=== PATIENT | female | born 1960 | race Two or more races ===

== ENCOUNTER 2017-04-04 18:38 | Emergency (ER) | payer SELFPAY ==
[~2017-04-04] VITALS: Ht 162.6 cm; Wt 68.9 kg
[~2017-04-04 18:38] MED LIST: ATORVASTATIN CA20 MG ORAL; BACTRIM-DS1 EA ORAL; GABAPENTIN300 MG ORAL; GLYBURIDE-METF1 EAC1 PO; LEVOFLOXACIN750 MG ORAL
[2017-04-04 19:00] VITALS: BP 138/91
[2017-04-04] MEDS ORDERED: METFORMIN HCL850 M1 ORAL (19:00)
[2017-04-04] MEDS ORDERED: GLUCOTROL10 MG ORAL (19:00)
[2017-04-04] MEDS ORDERED: oxyCODONE HCL/Acetaminophen 5/325mg ORAL ONE (19:30)
--- NOTE | 2017-04-04 20:02 | Emergency Room Report ---
History of Present Illness General Chief Complaint: Pain Source: Patient Present Illness HPI 56-year-old female presents to the emergency department complaining of 10 out of 10 in severity sudden onset right flank pain that radiates down into the right lower quadrant as well as groin/ anterior right thigh since last night. Patient reports constant dull ache with intermittent sharp exacerbations. Patient reports history of sciatica in addition to arthritis she denies nausea, vomiting, constipation, diarrhea, dysuria, urinary frequency or urgency, hematuria. She denies palpable swelling or history of hernia. Denies CP, Palpitations, LOC, AMS, dizziness, Changes in Vision, Sensation, paresthesias, or a sudden severe headache. She denies fevers however she reports hot flashes and chills. Allergies: Coded Allergies: No Known Allergies (Unverified , 12/16/15) Patient History Past Medical History: see triage record Past Surgical History: none Pertinent Family History: none Last Menstrual Period: 2016 Now: No Reviewed Nursing Documentation: PMH: Agreed, PSxH: Agreed Nursing Documentation-PMH Hx Cardiac Problems: No Hx Diabetes: Yes Hx Cancer: No Hx Gastrointestinal Problems: No Hx Neurological Problems: Yes - Neuropathy, Migraines Review of Systems All Other Systems: negative except mentioned in HPI Physical Exam Vital Signs Date Time Temp Pulse Resp B/P (MAP) Pulse Ox O2 Delivery O2 Flow Rate FiO2 04/04/17 18:54 98.2 100 19 138/91 100 Room Air Sp02 EP Interpretation: reviewed, normal General Appearance: alert, GCS 15, non-toxic, mild distress Head: normocephalic, atraumatic ENT: hearing grossly normal, normal voice Neck: full range of motion Respiratory: lungs clear, normal breath sounds, speaking full sentences Cardiovascular #1: regular rate, rhythm Gastrointestinal: normal bowel sounds, non tender - very mild Tenderness to deep palpation to the lower quadrants. , soft, non-distended, no guarding Rectal: deferred Genitourinary: normal inspection, CVA tenderness (R) Musculoskeletal: back normal, gait/station normal, normal range of motion, non- tender Neurologic: alert, oriented x3, responsive, motor strength/tone normal, sensory intact, speech normal, grossly normal Psychiatric: judgement/insight normal Skin: normal color, no rash, warm/dry, well hydrated Medical Decision Making PA Attestation Dr. Espinosa is my supervising Physician whom patient management has been discussed with. Diagnostic Impression: Primary Impression: Flank pain, acute Additional Impressions: UTI (urinary tract infection) Qualified Codes: N30.01 - Acute cystitis with hematuria Pyelonephritis ER Course 56-year-old female presents to the emergency department complaining of 10 out of 10 in severity sudden onset right flank pain that radiates down into the right lower quadrant as well as groin/ anterior right thigh since last night. Patient reports constant dull ache with intermittent sharp exacerbations. Patient reports history of sciatica in addition to arthritis she denies nausea, vomiting, constipation, diarrhea, dysuria, urinary frequency or urgency, hematuria. She denies palpable swelling or history of hernia. Denies CP, Palpitations, LOC, AMS, dizziness, Changes in Vision, Sensation, paresthesias, or a sudden severe headache. She denies fevers however she reports hot flashes and chills. Ddx considered but are not limited to Diverticulitis, acute appy, diarrhea,UC, PUD, GE, pancreatitis, gallstone, kidney stone, pyelonephritis, UTI, obstruction. Vital signs: are WNL, pt. is afebrile H&PE are most consistent with Possible renal calculi/or pyelo. acute appendicis is lower suspicious due to relatively benign abdominal exam ORDERS: - UA: Moderate bacteria, elevated inflammatory markers, RBC's and occult blood. possible stone - US- ABD: NO evidence of hydronephrosis or stones. ED INTERVENTIONS: -- Percocet PO -Bactrim DS PO -HR normalized after administration of pain medication. pt. continues to be afebrile, and non-toxic in appearance. -Patient is given ED return precautions, discussed with patient that she'll be treated antibiotics PO for 2 weeks as I suspect pyelonephritis. Discussed with patient to followup with her primary care provider in 3-5 days. DISCHARGE: At this time pt. is stable for d/c to home. Will provide printed patient care instructions, and any necessary prescriptions. Care plan and follow up instructions have been discussed with the patient prior to discharge. Labs Test 04/04/17 19:45 Urine Color Pale yellow Urine Appearance Cloudy Urine pH 5.0 (4.5-8.0) Urine Specific [place] 1.020 (1.005-1.035) Urine Protein 2+ (NEGATIVE) Urine Glucose (UA) 4+ (NEGATIVE) Urine Ketones 3+ (NEGATIVE) Urine Occult Blood 1+ (NEGATIVE) Urine Nitrite Negative (NEGATIVE) Urine Bilirubin Negative (NEGATIVE) Urine Urobilinogen Normal MG/DL (0.0-1.0) Urine Leukocyte Esterase 1+ (NEGATIVE) Urine RBC 2-4 /HPF (0 - 2) Urine WBC 10-15 /HPF (0 - 2) Urine Squamous Epithelial Cells Moderate /LPF (NONE/OCC) Urine Bacteria Many /HPF (NONE) Last Vital Signs Date Time Temp Pulse Resp B/P (MAP) Pulse Ox O2 Delivery O2 Flow Rate FiO2 04/04/17 18:54 98.2 100 19 138/91 100 Room Air Disposition: HOME, SELF-CARE Condition: Stable Scripts Acetaminophen With Codeine (T#3) (TYLENOL #3 TAB*) Y Tab 1 TAB ORAL Q6H Y for For Pain, #9 TAB Prov: Katherin White 04/04/17 Trimethoprim/Sulfamethoxazole 160/800* (BACTRIM DS TABLET*) 1 Each Tablet 1 TAB ORAL TWICE A DAY for 14 Days, #28 TAB Prov: Katherin White 04/04/17 Patient Instructions: Pyelonephritis, Adult, [place], Urinary Tract Infection Additional Instructions: Take medications as directed. Follow up with a Primary Care Provider in 3-5 days, even if your symptoms have resolved. --Please review list of primary care clinics, if you do not already have a primary care provider Return sooner to ED if new symptoms occur, or current symptoms become worse. Do not drink alcohol, drive, or operate heavy machinery while taking Tylenol # 3 as this may cause drowsiness. - Please note that this Emergency Department Report was dictated using [employer] assistant technology software, occasionally this can lead to erroneous entry secondary to interpretation by the dictation equipment. Katherin White Apr 04, 2017 20:02
[2017-04-04 20:30] LABS: APPEARANCE,URINE CLOUDY; COLOR,URINE PALE YELLOW
[2017-04-04 20:31] LABS: BILIRUBIN, URINE NEGATIVE (NEGATIVE); GLUCOSE, URINE (UA) 4+ (NEGATIVE); KETONES,URINE 3+ (NEGATIVE); LEUKOCYTE ESTERASE ,URINE 1+ (NEGATIVE); NITRITE,URINE NEGATIVE (NEGATIVE); PROTEIN,URINE 2+ (NEGATIVE); UROBILINOGEN,URINE NORMAL MG/DL (0.0-1.0)
[2017-04-04] MEDS ORDERED: cefTRIAXone 1 GM in NS 55 ML IVPB ONE (21:15)
[2017-04-04] MEDS ORDERED: Bactrim-DS 1 tab ORAL ONE (21:15)
[2017-04-04] MEDS ORDERED: BACTRIM DS TAB1 EAC1 ORAL (22:06)
[2017-04-04] MEDS ORDERED: ACETAMINOPHEN-1 EAC1 ORAL (22:06)
[2017-04-04 23:04] VITALS: BP 130/75
--- NOTE | 2017-04-07 10:22 | Diagnostic Imaging Report ---
Indication: Pain Technique: Grayscale and duplex images of the kidneys, retroperitoneum, and bladder were obtained. Comparison: 12/19/2015 Findings: Right kidney measures 11.2 cm in length. Left kidney measures 12.5 cm in length. Both kidneys demonstrate normal echogenicity. No hydronephrosis. No focal abnormality. Normal inferior vena cava. Bladder is normal. Post void bladder volume is 5 mm. No significant change Impression: Negative for hydronephrosis 5 mL postvoid bladder volume.
== END 2017-04-04 23:05 | disposition home or self-care (01) ==
LOC: EMR 19:05
DX: R10.9 Unspecified abdominal pain (principal); N39.0 Urinary tract infection, site not specified; N12 Tubulo-interstitial nephritis, not specified as acute or chronic; E11.9 Type 2 diabetes mellitus without complications
CPT/HCPCS: 76775; 81003; 87086; 87181; 96365; 99284

== ENCOUNTER 2017-05-01 14:40 | Inpatient (IN) | payer SELFPAY ==
[~2017-05-01] VITALS: Ht 162.6 cm; Wt 67.6 kg
[~2017-05-01 14:40] MED LIST changes: +ACETAMINOPHEN-1 EAC1 ORAL; +BACTRIM DS TAB1 EAC1 ORAL; +GLUCOTROL10 MG ORAL; +METFORMIN HCL850 M1 ORAL
[2017-05-01] MEDS ORDERED: Morphine Sulfate 4mg/ml Inj IVP ONE ×2 (15:15→19:00)
[2017-05-01 15:47] LABS: MEAN CORPUSCULAR VOLUME 86 FL (80-99); PLATELET COUNT 343 K/UL (150-450); RED BLOOD COUNT 4.86 M/UL (4.20-5.40); RED CELL DISTRIBUTION WIDTH 11.4 % (11.6-14.8); WHITE BLOOD COUNT 14.3 K/UL (4.8-10.8)
[2017-05-01 15:48] LABS: APPEARANCE,URINE CLEAR; BILIRUBIN, URINE NEGATIVE (NEGATIVE); COLOR,URINE PALE YELLOW; GLUCOSE, URINE (UA) 4+ (NEGATIVE); KETONES,URINE 4+ (NEGATIVE); LEUKOCYTE ESTERASE ,URINE NEGATIVE (NEGATIVE); NITRITE,URINE NEGATIVE (NEGATIVE); PH,URINE 5 (4.5-8.0); PROTEIN,URINE 3+ (NEGATIVE); UROBILINOGEN,URINE NORMAL MG/DL (0.0-1.0)
[2017-05-01 15:51] LABS: BASOPHILS % (AUTO) 0.5 % (0.0-2.0); EOSINOPHILS % (AUTO) 0.1 % (0.0-3.0); LYMPHOCYTES % (AUTO) 8.8 % (20.0-45.0); MONOCYTES % (AUTO) 4.7 % (1.0-10.0); NEUTROPHILS % (AUTO) 85.9 % (45.0-75.0)
[2017-05-01 16:01] LABS: ANION GAP 18 mmol/L (5-15); BLOOD UREA NITROGEN 8 mg/dL (7-18); CALCIUM 10.2 MG/DL (8.5-10.1); CARBON DIOXIDE 20 MMOL/L (21-32); CHLORIDE 94 MMOL/L (98-107); CREATININE 0.7 MG/DL (0.55-1.30); POTASSIUM 3.8 MMOL/L (3.5-5.1); SODIUM 132 MMOL/L (136-145)
[2017-05-01 16:15] LABS: ALANINE AMINOTRANSFERASE 39 U/L (12-78); ALKALINE PHOSPHATASE 92 U/L (46-116); ASPARTATE AMINO TRANSFERASE 12 U/L (15-37); CKMB < 0.5 NG/ML (0.0-3.6); CREATINE KINASE 39 U/L (26-308)
--- NOTE | 2017-05-01 16:32 | Diagnostic Imaging Report ---
Indication: Chest pain Comparison: 12/17/2015 A single view chest radiograph was obtained. Findings: Cardiomediastinal appearance is within normal limits for age. Pulmonary vascularity is appropriate. The diaphragmatic contour is smooth and costophrenic angles are sharp. No pleural effusions are identified. The bones are unremarkable. Impression: No acute findings
[2017-05-01 17:03] VITALS: BP 167/80
--- NOTE | 2017-05-01 19:08 | Emergency Room Report ---
History of Present Illness General Chief Complaint: Chest Pain Source: Patient, Medical Record Present Illness HPI Patient was sent to the emergency department today complaining of chest pain epigastric pain and vomiting. Patient has a history of diabetes and takes metformin and has a history hypertension. She has not taken her medications today because of the vomiting. She denies diarrhea. No other complaints are noted. Patient states that she's never had this before. Symptoms noted to be highly severe.No other modifying factors. No other associated signs and symptoms. No other complaints were noted. Allergies: Coded Allergies: No Known Allergies (Unverified , 12/16/15) Patient History Past Medical History: DM, HTN Past Surgical History: none Pertinent Family History: none Social History: Denies: smoking, alcohol use, drug use Reviewed Nursing Documentation: PMH: Agreed, PSxH: Agreed Nursing Documentation-PMH Past Medical History: No History, Except For Hx Cardiac Problems: No Hx Diabetes: Yes Hx Cancer: No Hx Gastrointestinal Problems: No Hx Neurological Problems: Yes - Neuropathy, Migraines Review of Systems All Other Systems: negative except mentioned in HPI Physical Exam Vital Signs Date Time Temp Pulse Resp B/P (MAP) Pulse Ox O2 Delivery O2 Flow Rate FiO2 05/01/17 14:44 98.4 119 26 179/82 100 Room Air 98.4 Sp02 EP Interpretation: reviewed, normal General Appearance: alert, moderate distress Head: normocephalic, atraumatic Eyes: bilateral eye normal inspection ENT: normal ENT inspection, hearing grossly normal, normal voice Neck: normal inspection, full range of motion, supple, no bony tend Respiratory: normal inspection, lungs clear, normal breath sounds, no respiratory distress, no retraction, no wheezing Cardiovascular #1: regular rate, rhythm, no edema Gastrointestinal: normal inspection, normal bowel sounds, soft, no guarding, no hernia, tenderness - epigastric Genitourinary: no CVA tenderness Musculoskeletal: normal inspection, back normal, normal range of motion Neurologic: normal inspection, alert, responsive, speech normal Psychiatric: normal inspection, judgement/insight normal, mood/affect normal Skin: normal inspection, normal color, no rash Medical Decision Making Diagnostic Impression: Primary Impression: ACS (acute coronary syndrome) Additional Impressions: Vomiting Abdominal pain Gastroparesis ER Course Patient presents emergency department today complaining of abdominal pain and chest pain. Differential considerations include acute coronary syndrome, pneumonia, CHF, gastroparesis, aortic dissection, pulmonary embolism just to name a few.Given the severity of the patient's presentation I felt this is a highly complex patient. This patient required extensive workup. He does patient's presentation patient require laboratory workup fluids pain medication and CAT scan. All the laboratory work up and CAT scan were negative. Patient' s symptoms could be secondary to gastroparesis however given severe he patient' s pain for the patient require admission for treatment and monitoring. Case was discussed with Dr. Clemente Barrow. Patient will be made to telemetry for further treatment. Labs Test 05/01/17 15:38 White Blood Count 14.3 K/UL (4.8-10.8) Red Blood Count 4.86 M/UL (4.20-5.40) Hemoglobin 15.0 G/DL (12.0-16.0) Hematocrit 42.0 % (37.0-47.0) Mean Corpuscular Volume 86 FL (80-99) Mean Corpuscular Hemoglobin 30.9 PG (27.0-31.0) Mean Corpuscular Hemoglobin Concent 35.7 G/DL (32.0-36.0) Red Cell Distribution Width 11.4 % (11.6-14.8) Platelet Count 343 K/UL (150-450) Mean Platelet Volume 6.4 FL (6.5-10.1) Neutrophils (%) (Auto) 85.9 % (45.0-75.0) Lymphocytes (%) (Auto) 8.8 % (20.0-45.0) Monocytes (%) (Auto) 4.7 % (1.0-10.0) Eosinophils (%) (Auto) 0.1 % (0.0-3.0) Basophils (%) (Auto) 0.5 % (0.0-2.0) Prothrombin Time 10.1 SEC (9.30-11.50) Prothromb Time International Ratio 1.0 (0.9-1.1) Activated Partial Thromboplast Time 25 SEC (23-33) Urine Color Pale yellow Urine Appearance Clear Urine pH 5 (4.5-8.0) Urine Specific [place] 1.015 (1.005-1.035) Urine Protein 3+ (NEGATIVE) Urine Glucose (UA) 4+ (NEGATIVE) Urine Ketones 4+ (NEGATIVE) Urine Occult Blood 2+ (NEGATIVE) Urine Nitrite Negative (NEGATIVE) Urine Bilirubin Negative (NEGATIVE) Urine Urobilinogen Normal MG/DL (0.0-1.0) Urine Leukocyte Esterase Negative (NEGATIVE) Urine RBC 5-10 /HPF (0 - 2) Urine WBC 2-4 /HPF (0 - 2) Urine Squamous Epithelial Cells Occasional /LPF Urine Bacteria None /HPF (NONE) Sodium Level 132 MMOL/L (136-145) Potassium Level 3.8 MMOL/L (3.5-5.1) Chloride Level 94 MMOL/L (98-107) Carbon Dioxide Level 20 MMOL/L (21-32) Anion Gap 18 mmol/L (5-15) Blood Urea Nitrogen 8 mg/dL (7-18) Creatinine 0.7 MG/DL (0.55-1.30) Estimat Glomerular Filtration Rate > 60 mL/min (>60) Glucose Level 329 MG/DL (74-106) Calcium Level 10.2 MG/DL (8.5-10.1) Total Bilirubin 1.0 MG/DL (0.2-1.0) Aspartate Amino Transf (AST/SGOT) 12 U/L (15-37) Alanine Aminotransferase (ALT/SGPT) 39 U/L (12-78) Alkaline Phosphatase 92 U/L (46-116) Total Creatine Kinase 39 U/L (26-308) Creatine Kinase MB < 0.5 NG/ML (0.0-3.6) Creatine Kinase MB Relative Index 1.2 Troponin I 0.000 ng/mL (0.000-0.056) Pro-B-Type Natriuretic Peptide 250 pg/mL (0-125) Total Protein 8.0 G/DL (6.4-8.2) Albumin 4.0 G/DL (3.4-5.0) Globulin 4.0 g/dL Albumin/Globulin Ratio 1.0 (1.0-2.7) Lipase 121 U/L (73-393) EKG Diagnostic Results Rate: tachycardiac Rhythm: NSR ST Segments: no acute changes Rhythm Strip Diag. Results EP Interpretation: yes Rate: 100 Rhythm: NSR, no PVC's, no ectopy Last Vital Signs Date Time Temp Pulse Resp B/P (MAP) Pulse Ox O2 Delivery O2 Flow Rate FiO2 05/01/17 17:03 99 26 167/80 100 Room Air 05/01/17 17:03 98.4 Status: improved Disposition: ADMITTED INPATIENT Condition: Serious Referrals: NOT CHOSEN IPA/,REFERRING (PCP) JAMILA BROWNE M.D. May 01, 2017 19:08
[2017-05-01 19:35] VITALS: BP 150/79
[2017-05-01 21:10] VITALS: BP 145/78
[2017-05-01 21:50] VITALS: BP 142/77
[2017-05-01 22:20] VITALS: BP 148/74
[2017-05-01] MEDS ORDERED: D5 1/2NS 1,000 ML IV SCH (23:15)
[2017-05-01] MEDS: Morphine Sulfate 2mg/ml Inj IVP PRN (23:46)
[2017-05-02] VITALS (7 sets, daily range): BP systolic 120–185; BP diastolic 65–110
[2017-05-02 01:24] LABS: HEMATOCRIT 40.2 % (37.0-47.0); HEMOGLOBIN 13.7 G/DL (12.0-16.0); MEAN CORPUSCULAR VOLUME 88 FL (80-99); PLATELET COUNT 305 K/UL (150-450); RED BLOOD COUNT 4.57 M/UL (4.20-5.40); WHITE BLOOD COUNT 13.8 K/UL (4.8-10.8)
[2017-05-02 02:06] LABS: ANION GAP 19 mmol/L (5-15); BLOOD UREA NITROGEN 8 mg/dL (7-18); CALCIUM 9.7 MG/DL (8.5-10.1); CARBON DIOXIDE 15 MMOL/L (21-32); CHLORIDE 98 MMOL/L (98-107); CREATININE 0.6 MG/DL (0.55-1.30); POTASSIUM 4.1 MMOL/L (3.5-5.1); SODIUM 132 MMOL/L (136-145)
[2017-05-02] MEDS ORDERED: Loperamide 2mg cap ORAL PRN (02:45)
[2017-05-02] MEDS: NovoLOG Insulin Flexpen SUBQ SCH ×4 (06:30→21:15)
[2017-05-02] MEDS: Morphine Sulfate 2mg/ml Inj IVP PRN ×3 (08:20→21:20)
[2017-05-02] MEDS: Heparin 5000 units/ml inj SUBQ SCH ×2 (08:23→18:01)
--- NOTE | 2017-05-02 09:23 | Diagnostic Imaging Report ---
Indication: Chest and abdominal pain. Shortness of breath Technique: Continuous helical transaxial imaging of the chest, abdomen and pelvis was obtained from the thoracic inlet to the pubic symphysis during rapid intravenous contrast administration. Arterial phase of enhancement obtained. Coronal 2-D reformats were also obtained and maximum intensity projection images in multiple planes. Study obtained in a Siemens sensation [address] Total Dose length Product (DLP): [address] Dose Index Volume (CTDIvol): 0.15, 8.11, 32.45, 14.25 mGy Comparison: None Findings: The thoracic and abdominal aorta appear normal. The major branches of the thoracic aorta including the innominate artery, left common carotid artery and left subclavian arteries appear normal. There is no evidence of aortic dissection or aneurysm. Pulmonary artery is well opacified on this exam as well. There are no filling defects to suggest pulmonary embolus. The heart is unremarkable and there is no pericardial or pleural effusion. No adenopathy, airspace consolidation or interstitial opacities are identified. Major branches of the abdominal aorta appear widely patent including the celiac artery, SMA, bilateral renal arteries, DIANA. There is no aneurysm or dissection of the abdominal aorta. The liver is diffusely hypodense consistent with fatty infiltration. The liver is also prominent in size. There is no free fluid. Some breathing motion present. There is a calcification in the uterus, nonspecific. There is a small right inguinal hernia containing fat. A few discrete diverticula are noted in the sigmoid colon. IMPRESSION: Normal appearance of the thoracic and abdominal aorta. No dissection or aneurysm. No evidence of pulmonary embolus. No acute finding within the chest, abdomen or pelvis identified. Fatty liver. Punctate calcification in the uterus, nonspecific. Small right inguinal hernia containing fat. Mild colonic diverticulosis. No evidence of diverticulitis. The CT scanner at [facility] is accredited by the [employer] and the scans are performed using dose optimization techniques as appropriate to a performed exam including Automatic Exposure control.
[2017-05-02] MEDS: Lisinopril 10mg tab ORAL SCH (12:41)
[2017-05-02] MEDS ORDERED: Levemir Flexpen SUBQ ONE (14:00)
--- NOTE | 2017-05-02 14:23 | General Progress Note ---
Assessment/Plan Problem List: (1) Cannabinoid hyperemesis syndrome ICD Codes: F12.988 - Cannabis use, unspecified with other cannabis-induced disorder SNOMED: 546145671, [id number] (2) Abdominal pain ICD Codes: R10.9 - Unspecified abdominal pain SNOMED: 16455675 Assessment/Plan neg ct ivf control nausea fu Subjective ROS Limited/Unobtainable: Yes Allergies: Coded Allergies: NO KNOWN ALLERGIES (Verified Allergy, Unknown, 05/01/17) Subjective N/V Objective Last 24 Hour Vital Signs Date Time Temp Pulse Resp B/P (MAP) Pulse Ox O2 Delivery O2 Flow Rate FiO2 05/02/17 12:41 185/98 05/02/17 12:00 130 05/02/17 12:00 97.8 120 22 185/98 98 Room Air 97.8 05/02/17 08:01 133 05/02/17 08:00 97.8 120 22 170/110 98 Room Air 97.8 05/02/17 04:00 97.9 120 20 164/85 97 Room Air 97.9 05/02/17 04:00 113 05/02/17 00:00 117 05/02/17 00:00 98.2 113 20 139/65 99 Room Air 98.2 05/01/17 22:20 98.2 110 22 148/74 99 Room Air 98.2 05/01/17 22:10 98.7 99 22 142/77 100 Room Air 98.7 05/01/17 21:50 98.7 99 22 142/77 100 Room Air 98.7 05/01/17 21:10 98.6 88 21 145/78 100 Room Air 98.6 05/01/17 19:35 98.7 77 22 150/79 100 Room Air 98.7 05/01/17 19:31 98.6 05/01/17 19:01 98.4 05/01/17 17:03 99 26 167/80 100 Room Air 05/01/17 17:03 98.4 05/01/17 17:03 99 26 Room Air 05/01/17 15:37 98.4 05/01/17 14:44 98.4 119 26 179/82 100 Room Air 98.4 Intake and Output 05/01/17 05/02/17 19:00 07:00 # Voids 1 6 # Bowel Movements 2 Laboratory Tests 05/01/17 15:35: Urine Opiates Screen Negative, Urine Barbiturates Screen Negative, Phencyclidine (PCP) Screen Negative, Urine Amphetamines Screen Negative, Urine Benzodiazepines Screen Negative, Urine Cocaine Screen Negative, Urine Marijuana (THC) Screen PositiveH 05/01/17 15:38: White Blood Count 14.3H, Red Blood Count 4.86, Hemoglobin 15.0, Hematocrit 42.0 , Mean Corpuscular Volume 86, Mean Corpuscular Hemoglobin 30.9, Mean Corpuscular Hemoglobin Concent 35.7, Red Cell Distribution Width 11.4L, Platelet Count 343, Mean Platelet Volume 6.4L, Neutrophils (%) (Auto) 85.9H, Lymphocytes (%) (Auto) 8.8L, Monocytes (%) (Auto) 4.7, Eosinophils (%) (Auto) 0.1, Basophils (%) (Auto) 0.5, Prothrombin Time 10.1, Prothromb Time International Ratio 1.0, Activated Partial Thromboplast Time 25, Urine Color Pale yellow, Urine Appearance Clear, Urine pH 5, Urine Specific [place] 1.015, Urine Protein 3+H, Urine Glucose (UA) 4+H, Urine Ketones 4+H, Urine Occult Blood 2+H, Urine Nitrite Negative, Urine Bilirubin Negative, Urine Urobilinogen Normal, Urine Leukocyte Esterase Negative, Urine RBC 5-10H, Urine WBC 2-4, Urine Squamous Epithelial Cells Occasional, Urine Bacteria None, Sodium Level 132L, Potassium Level 3.8, Chloride Level 94L, Carbon Dioxide Level 20L, Anion Gap 18H, Blood Urea Nitrogen 8, Creatinine 0.7, Estimat Glomerular Filtration Rate > 60, Glucose Level 329H, Calcium Level 10.2H, Total Bilirubin 1.0, Aspartate Amino Transf (AST/SGOT) 12L, Alanine Aminotransferase (ALT/SGPT) 39, Alkaline Phosphatase 92, Total Creatine Kinase 39, Creatine Kinase MB < 0.5, Creatine Kinase MB Relative Index 1.2, Troponin I 0.000, Pro-B-Type Natriuretic Peptide 250H, Total Protein 8.0, Albumin 4.0, Globulin 4.0, Albumin/Globulin Ratio 1.0, Lipase 121 05/02/17 01:00: White Blood Count 13.8H, Red Blood Count 4.57, Hemoglobin 13.7, Hematocrit 40.2 , Mean Corpuscular Volume 88, Mean Corpuscular Hemoglobin 29.9, Mean Corpuscular Hemoglobin Concent 34.0, Red Cell Distribution Width 12.0, Platelet Count 305, Mean Platelet Volume 6.1L, Neutrophils (%) (Auto) , Lymphocytes (%) ( Auto) , Monocytes (%) (Auto) , Eosinophils (%) (Auto) , Basophils (%) (Auto) , Sodium Level 132L, Potassium Level 4.1, Chloride Level 98, Carbon Dioxide Level 15L, Anion Gap 19H, Blood Urea Nitrogen 8, Creatinine 0.6, Estimat Glomerular Filtration Rate > 60, Glucose Level 312H, Calcium Level 9.7, Troponin I 0.000, Differential Total Cells Counted 100, Neutrophils % (Manual) 89H, Lymphocytes % (Manual) 8L, Monocytes % (Manual) 3, Eosinophils % (Manual) 0, Basophils % ( Manual) 0, Band Neutrophils 0, Platelet Estimate Adequate, Platelet Morphology Normal 05/02/17 08:45: Troponin I 0.000 Procedure: CTA CHEST ABD/PEL WO/W CONT Indication: Chest and abdominal pain. Shortness of breath Technique: Continuous helical transaxial imaging of the chest, abdomen and pelvis was obtained from the thoracic inlet to the pubic symphysis during rapid intravenous contrast administration. Arterial phase of enhancement obtained. Coronal 2-D reformats were also obtained and maximum intensity projection images in multiple planes. Study obtained in a Siemens sensation [address] Total Dose length Product (DLP): [address] Dose Index Volume (CTDIvol): 0.15, 8.11, 32.45, 14.25 mGy Comparison: None Findings: The thoracic and abdominal aorta appear normal. The major branches of the thoracic aorta including the innominate artery, left common carotid artery and left subclavian arteries appear normal. There is no evidence of aortic dissection or aneurysm. Pulmonary artery is well opacified on this exam as well. There are no filling defects to suggest pulmonary embolus. The heart is unremarkable and there is no pericardial or pleural effusion. No adenopathy, airspace consolidation or interstitial opacities are identified. Major branches of the abdominal aorta appear widely patent including the celiac artery, SMA, bilateral renal arteries, DIANA. There is no aneurysm or dissection of the abdominal aorta. The liver is diffusely hypodense consistent with fatty infiltration. The liver is also prominent in size. There is no free fluid. Some breathing motion present. There is a calcification in the uterus, nonspecific. There is a small right inguinal hernia containing fat. A few discrete diverticula are noted in the sigmoid colon. IMPRESSION: Normal appearance of the thoracic and abdominal aorta. No dissection or aneurysm. No evidence of pulmonary embolus. No acute finding within the chest, abdomen or pelvis identified. Fatty liver. Punctate calcification in the uterus, nonspecific. Small right inguinal hernia containing fat. Mild colonic diverticulosis. No evidence of diverticulitis. The CT scanner at [facility] is accredited by the [employer] and the scans are performed using dose optimization techniques as appropriate to a performed exam including Automatic Exposure control. Dictated By: PO LEE M.D. Electronically Signed By: PO LEE M.D. Signed Date/Time 05/02/17 0918 CC: SHANTI HAWKINS; ANA LAURA BROWNE Height (Feet): 5 Height (Inches): 4.00 Weight (Pounds): 149 General Appearance: alert EENT: normal ENT inspection Neck: supple Cardiovascular: normal rate Respiratory/Chest: lungs clear Abdomen: normal bowel sounds, non tender, soft Extremities: non-tender CLARISSA TOM May 02, 2017 14:23
--- NOTE | 2017-05-02 14:44 | General Progress Note ---
Progress Note Progress Note [id number] full consult dictated [place] May 02, 2017 14:44
--- NOTE | 2017-05-02 16:00 | History and Physical Report ---
DATE OF ADMISSION: 05/01/2017 ATTENDING PHYSICIAN: Clemente Barrow D.O. CONSULTANTS: 1. Raoul Carlson M.D. 2. Kavon Disla M.D. 3. Bryce Murphy M.D. 4. Robel Robledo M.D. CHIEF COMPLAINT: Chest pain, abdominal pain, nausea, vomiting, and neuropathy. BRIEF HISTORY: The patient is a 56-year-old female, who lives at home, presents with history of chest pain for one day, dull, left substernal area. No radiation. No loss of consciousness. No dizziness. She has abdominal pain as well with some nausea and vomiting. The patient came to [facility], diagnosed with the above, admitted to telemetry for further care. Currently calm in bed. Slight nausea and vomiting. No complaint. PAST MEDICAL HISTORY: Diabetes and neuropathy. PAST SURGICAL HISTORY: None. MEDICATIONS: Heparin, NovoLog, Zofran, Imodium, dextrose, and morphine. ALLERGIES: Denies. SOCIAL HISTORY: No smoking. No alcohol. Positive marijuana use. REVIEW OF SYSTEMS: Slight chest pain. Slight shortness of breath. Slight nausea and vomiting. No diarrhea. PHYSICAL EXAMINATION: GENERAL: Calm in bed, oriented x3, in no acute distress. VITAL SIGNS: Temperature is 97 degrees, pulse 120, respirations 22, and blood pressure 120/110. CARDIOVASCULAR: No murmur. LUNGS: Distant and clear. ABDOMEN: Bowel sounds positive. Nontender and nondistended. EXTREMITIES: No cyanosis or edema. NEUROLOGIC: The patient moves all extremities, slightly weak. LABORATORY AND DIAGNOSTIC DATA: White count 13.8, otherwise, CBC is normal. Sodium 132 and glucose 312, otherwise, normal. INR is 1.0 and PTT is 25. Urinalysis shows 3+ protein, 4+ glucose, 4+ ketone, and 2+ occult blood. Urine toxicology is positive for marijuana. ASSESSMENT: 1. Acute coronary syndrome. 2. Abdominal pain. 3. Nausea and vomiting. 4. Diabetes. 5. Neuropathy. 6. Leukocytosis. PLAN: 1. Continue premedications. 2. Troponin q.8 h. x3. 3. EKG in the morning. 4. Morphine p.r.n. 5. Blood pressure and blood sugar control. 6. Pain control. 7. Dietary followup. 8. Resume home medications. 9. Dr. Carlson, Dr. Disla, Dr. Murphy, Dr. Robledo, and Dr. Larios to consult. Clemente Barrow D.O. DR: Aamir JOB#: [id number] CC:
--- NOTE | 2017-05-02 17:09 | Cardiology Progress Note ---
Assessment/Plan Assessment/Plan The patient is seen and examined, full consult note will be dictated shortly. Objective Last 24 Hour Vital Signs Date Time Temp Pulse Resp B/P (MAP) Pulse Ox O2 Delivery O2 Flow Rate FiO2 05/02/17 16:00 97.7 136 20 155/92 98 Room Air 97.7 05/02/17 12:41 185/98 05/02/17 12:00 130 05/02/17 12:00 97.8 120 22 185/98 98 Room Air 97.8 05/02/17 08:01 133 05/02/17 08:00 97.8 120 22 170/110 98 Room Air 97.8 05/02/17 04:00 97.9 120 20 164/85 97 Room Air 97.9 05/02/17 04:00 113 05/02/17 00:00 117 05/02/17 00:00 98.2 113 20 139/65 99 Room Air 98.2 05/01/17 22:20 98.2 110 22 148/74 99 Room Air 98.2 05/01/17 22:10 98.7 99 22 142/77 100 Room Air 98.7 05/01/17 21:50 98.7 99 22 142/77 100 Room Air 98.7 05/01/17 21:10 98.6 88 21 145/78 100 Room Air 98.6 05/01/17 19:35 98.7 77 22 150/79 100 Room Air 98.7 05/01/17 19:31 98.6 05/01/17 19:01 98.4 Intake and Output 05/01/17 05/02/17 19:00 07:00 Intake Total 60 ml Balance 60 ml Intake IV Total 60 ml # Voids 1 6 # Bowel Movements 2 Laboratory Tests Test 05/02/17 01:00 05/02/17 08:45 05/02/17 08:50 05/02/17 15:25 White Blood Count 13.8 K/UL (4.8-10.8) H Red Blood Count 4.57 M/UL (4.20-5.40) Hemoglobin 13.7 G/DL (12.0-16.0) Hematocrit 40.2 % (37.0-47.0) Mean Corpuscular Volume 88 FL (80-99) Mean Corpuscular Hemoglobin 29.9 PG (27.0-31.0) Mean Corpuscular Hemoglobin Concent 34.0 G/DL (32.0-36.0) Red Cell Distribution Width 12.0 % (11.6-14.8) Platelet Count 305 K/UL (150-450) Mean Platelet Volume 6.1 FL (6.5-10.1) L Neutrophils (%) (Auto) % (45.0-75.0) Lymphocytes (%) (Auto) % (20.0-45.0) Monocytes (%) (Auto) % (1.0-10.0) Eosinophils (%) (Auto) % (0.0-3.0) Basophils (%) (Auto) % (0.0-2.0) Differential Total Cells Counted 100 Neutrophils % (Manual) 89 % (45-75) H Lymphocytes % (Manual) 8 % (20-45) L Monocytes % (Manual) 3 % (1-10) Eosinophils % (Manual) 0 % (0-3) Basophils % (Manual) 0 % (0-2) Band Neutrophils 0 % (0-8) Platelet Estimate Adequate Platelet Morphology Normal Sodium Level 132 MMOL/L (136-145) L Potassium Level 4.1 MMOL/L (3.5-5.1) Chloride Level 98 MMOL/L (98-107) Carbon Dioxide Level 15 MMOL/L (21-32) L Anion Gap 19 mmol/L (5-15) H Blood Urea Nitrogen 8 mg/dL (7-18) Creatinine 0.6 MG/DL (0.55-1.30) Estimat Glomerular Filtration Rate > 60 mL/min (>60) Glucose Level 312 MG/DL (74-106) H Calcium Level 9.7 MG/DL (8.5-10.1) Troponin I 0.000 ng/mL (0.000-0.056) 0.000 ng/mL (0.000-0.056) Acetone Level Positive-small (NEGATIVE) Arterial Blood pH 7.282 (7.350-7.450) Arterial Blood Partial Pressure CO2 20.6 mmHg (35.0-45.0) *L Arterial Blood Partial Pressure O2 121.0 mmHg (75.0-100.0) H Arterial Blood HCO3 9.5 mmol/L (22.0-26.0) L Arterial Blood Oxygen Saturation 97.9 % (92.0-98.0) Arterial Blood Base Excess -14.9 Floyd Test Positive REGINALD CARDOZA May 02, 2017 17:09
[2017-05-02] MEDS: Pantoprazole Inj IVP SCH (21:14)
--- NOTE | 2017-05-02 23:40 | Consultation ---
Consult Note Consult Note [id number] JACKIE SOLIMAN M.D. May 02, 2017 23:40
[2017-05-03] VITALS: BP 130/79
--- NOTE | 2017-05-03 00:30 | Consultation ---
DATE OF CONSULTATION: 05/02/2017 NEPHROLOGY CONSULTATION REFERRING PHYSICIAN: Clemente Barrow D.O. REASON FOR CONSULTATION: Dehydration, acidosis, and electrolyte imbalance. HISTORY OF PRESENT ILLNESS: The patient is an unfortunate female with past medical history significant for diabetes, was diagnosed about 12 years ago. The patient is being going to [facility] and seeing a doctor for her diabetes as an outpatient and paid spencer for her treatment, but she was told that her diabetes was out of control. She started having intractable nausea, vomiting, and epigastric. She also had diarrhea. On admission, the patient found to have hyponatremia, uncontrolled diabetes, and was admitted in the hospital. I was called for management of renal disease and electrolyte imbalance. PAST MEDICAL HISTORY: Includin. Diabetes. 2. Dyslipidemia. 3. Hypertension. 4. Diabetic neuropathy. PAST SURGICAL HISTORY: Negative. HOME MEDICATIONS: Including only metformin. FAMILY HISTORY: Positive for history of diabetes. Negative for any history of premature heart disease. REVIEW OF SYSTEMS: GENERAL: She complained of generalized weakness. Complained of chills. No fever. PULMONARY: Denies any shortness of breath, cough, or sputum. CARDIOVASCULAR: Denies any chest pain or palpitations. GASTROINTESTINAL: She complained of chest pain, which is mostly epigastric pain, nonradiating, was associated with intractable nausea and vomiting. GENITOURINARY: Denies any dysuria, frequency, or hematuria. MUSCULOSKELETAL: Denies any weakness or numbness. PHYSICAL EXAMINATION: VITAL SIGNS: The patient had temperature of 98 degrees, blood pressure of 139/65, and pulse rate of 113. HEAD AND NECK: No JVP. No LAD. No thyromegaly. Extraocular movements intact. Pupils are reactive to light and accommodation. LUNGS: Clear to auscultation. CARDIAC: Regular rate and rhythm. S1 and S2. No murmur. No rub. ABDOMEN: Soft, nontender, and nondistended. EXTREMITIES: No edema. No clubbing. No cyanosis. LABORATORY AND DIAGNOSTIC DATA: The patient had WBC count of 13.8, hemoglobin of 13.7, hematocrit of 40, and platelet count of 305,000. Chemistry revealed sodium 132, potassium 4.1, 98 chloride, 15 bicarbonate, BUN of 8, creatinine of 0.6, glucose of 312, and calcium of 9.1. UA revealed specific gravity of 1.015, protein 3+, glucose 4+, ketones 4+, and blood 2+. ASSESSMENT: 1. Hyponatremia most likely the sugar corrected for hyperglycemia, the sodium basically is 137. 2. Anion gap acidosis, need to rule out diabetic ketoacidosis. 3. Urinary tract infection. 4. Rule out diabetic nephropathy with 3+ proteinuria. 5. Uncontrolled diabetes. 6. Uncontrolled hypertension. PLAN: Plan for the patient to obtain UA. Check the random urine protein creatinine ratio to calculate the proteinuria. Check the microalbumin level. I will change IV fluids to normal saline at 120 mL per hour. I would start the patient on possible IV antibiotics. I would like to check the ABG and stat ABG and I would check the ketone level. At the end, I would like to thank, Dr. Clemente Barrow, for allowing me to participate in the care of this patient. Xiomara Larios M.D. DR: Tatyana JOB#: [id number] CC:
--- NOTE | 2017-05-03 03:15 | Consultation ---
DATE OF CONSULTATION: 05/03/2017 INFECTIOUS DISEASE CONSULTATION CONSULTING PHYSICIAN: Meir Correa M.D. REFERRING PHYSICIAN: Clemente Barrow D.O. REASON FOR CONSULTATION: Evaluation of the patient for sepsis, leukocytosis, and antibiotic management. HISTORY OF PRESENT ILLNESS: The patient is a 55-year-old female with multiple medical problems as listed below, who was admitted to this medical center with nausea and vomiting. The patient was found to have leukocytosis. The patient has history of pyelonephritis in the past. Infectious Disease consultation has been requested for further evaluation of the patient's antibiotic management. PAST MEDICAL HISTORY: 1. Diabetes. 2. History of urinary tract infection. ALLERGIES: No known drug allergies. MEDICATIONS: Flagyl and Levaquin. SOCIAL HISTORY: The patient does not smoke or abuse drugs. REVIEW OF SYSTEMS: A 10-point was done as mentioned above. PHYSICAL EXAMINATION: VITAL SIGNS: Temperature 97, blood pressure 113/79, pulse 86, and respiratory rate 18. HEENT: No pale conjunctivae. No icterus. NECK: No lymphadenopathy. CHEST: Clear. HEART: S1, S2. ABDOMEN: Soft and nontender. EXTREMITIES: No cyanosis at this time. NEUROLOGIC: Nonfocal. LABORATORY DATA: White blood cells 13, hemoglobin 13, and platelets 305. UA, 5 to 10 red blood cells and 2 to 4 white blood cells. BUN 8, creatinine 0.9. ALT, AST, and alkaline phosphatase unremarkable. ASSESSMENT: The patient is a 56-year-old female with: 1. Nausea, vomiting. 2. Leukocytosis. 3. Rule out bacteremia. 4. Rule out C. difficile colitis. PLAN: 1. We will continue the patient on Levaquin and Flagyl. 2. Stool culture/C. diff. 3. Monitor CBC. 4. Monitor BMP. 5. Monitor blood and urine cultures. 6. Monitor chest x-ray. 7. Based on the patient's clinical course and labs, we will do further recommendations. Thank you, Dr. Clemente Barrow, for allowing me to participate in the care of this patient. I will follow the patient with you during this hospitalization. Meir Correa M.D. DR: COSTA JOB#: [id number] CC:
[2017-05-03 03:50] VITALS: BP 159/92
[2017-05-03] MEDS: Morphine Sulfate 2mg/ml Inj IVP PRN ×3 (03:59→20:58)
--- NOTE | 2017-05-03 05:45 | Consultation ---
DATE OF CONSULTATION: 05/02/2017 CARDIOLOGY CONSULTATION REFERRING PHYSICIAN: Clemente Barrow D.O. REASON FOR CONSULTATION: Management of tachycardia and chest pain. HISTORY OF PRESENT ILLNESS: The patient is a very unfortunate 56-year-old female who presents to the hospital with complaint of the acute pain, nausea and vomiting as well as chest pain. She has history of diabetes mellitus and takes metformin. Apparently, she has not taken her medications today because of vomiting. On arrival to the emergency department, initial blood pressure was extremely high. Initial evaluation revealed leukocytosis with left shift.The blood test was also significant for metabolic acidosis. Her sugar was 312. A 12-lead electrocardiogram done in the emergency department showed sinus rhythm with no ischemic features. Chest x-ray was significant for normal pulmonary vasculature. MEDICATIONS: List of medications at home including Tylenol No. 3 one tablet p.o. q.6 h. p.r.n. pain, atorvastatin 10 mg p.o. nightly, gabapentin 300 mg three times a day, Glucotrol 10 mg p.o. twice daily, glyburide/metformin 5/500 mg one tablet twice daily, levofloxacin 700 mg p.o. daily for seven days, metformin 850 mg three times a day, Bactrim DS one tablet orally twice daily, and trimethoprim and sulfamethoxazole one tablet twice daily. REVIEW OF SYSTEMS: A 12-system review done and essentially negative. PHYSICAL EXAMINATION: VITAL SIGNS: Blood pressure at the time of arrival to the hospital was 179/82, pulse of 90, respirations of 26, temperature 98.4 degrees Fahrenheit and O2 saturation 100% on room air. GENERAL: The patient is a very pleasant 56-year-old in no apparent respiratory distress. HEENT: Atraumatic and normocephalic. Anicteric. Pupils equal, round, and reactive to light and accommodation. Extraocular muscles intact. NECK: JVP less than 5 cm. CVS: Normal S1 and S2. Regular rate and rhythm. Tachycardic. No murmurs, gallops, or rubs. PMI is at fourth intercostal space at the midclavicular line. LUNGS: Clear to auscultation bilaterally. ABDOMEN: Soft, nontender, and nondistended. No hepatosplenomegaly. Positive bowel sounds. EXTREMITIES: No evidence of edema, clubbing, or cyanosis. LABORATORY AND DIAGNOSTIC DATA: Laboratory findings, chemistry shows sodium 132, potassium 3.8, chloride 94, bicarbonate 20, BUN of 8, creatinine 0.7. Troponin-I x4 negative. WBC is 14.3, hemoglobin of 15.0, hematocrit of 42.0. INR was 1.0. Toxicology showed positive for THC. DIAGNOSTIC DATA: Chest x-ray with no acute cardiopulmonary disease. ASSESSMENT AND PLAN: The patient is a very unfortunate 56-year-old female, seen in Cardiology consultation at the request of Dr. Ryan. 1. Sinus tachycardia, this is due to hypovolemia due to hyperglycemia, recommend aggressive hydration. I would like to thank Dr. Pascual for the courtesy of this consultation. Raoul Carlson M.D. DR: Eduardo JOB#: [id number] CC: PARUL
[2017-05-03] MEDS: NovoLOG Insulin Flexpen SUBQ SCH ×6 (06:16→21:10)
--- NOTE | 2017-05-03 07:45 | General Progress Note ---
Assessment/Plan Problem List: (1) Gram-negative bacteremia ICD Codes: R78.81 - Bacteremia SNOMED: 708181416984 (2) Pyelonephritis ICD Codes: N12 - Tubulo-interstitial nephritis, not specified as acute or chronic SNOMED: 70121924 (3) Abdominal pain ICD Codes: R10.9 - Unspecified abdominal pain SNOMED: 40595898 (4) Gastroparesis ICD Codes: K31.84 - Gastroparesis SNOMED: 045558549 (5) Vomiting ICD Codes: R11.10 - Vomiting, unspecified SNOMED: 949238952 (6) ACS (acute coronary syndrome) ICD Codes: I24.9 - Acute ischemic heart disease, unspecified SNOMED: 605662753 (7) Cannabinoid hyperemesis syndrome ICD Codes: F12.988 - Cannabis use, unspecified with other cannabis-induced disorder SNOMED: 087889405, 928091485 (8) Leukocytosis ICD Codes: D72.829 - Elevated white blood cell count, unspecified SNOMED: 442133124, 913173165 Assessment/Plan Levemir 20 units bid Novolog 8 units ac tid - hold for NPO status continue IV hydration continue NISS Subjective Allergies: Coded Allergies: NO KNOWN ALLERGIES (Verified Allergy, Unknown, 05/01/17) All Systems: reviewed and negative except above Subjective patient is known to me admitted with N/V, leukocytosis diabetes is out of control she is NPO on D5 / NS Objective Last 24 Hour Vital Signs Date Time Temp Pulse Resp B/P (MAP) Pulse Ox O2 Delivery O2 Flow Rate FiO2 05/03/17 03:50 97.7 128 16 159/92 95 97.7 05/03/17 03:40 127 05/03/17 00:00 97.7 125 16 130/79 100 97.7 05/02/17 23:34 127 05/02/17 20:00 97.0 129 16 134/83 98 97.0 05/02/17 19:53 97.0 129 16 134/83 98 Room Air 97.0 05/02/17 19:41 132 05/02/17 16:00 131 05/02/17 16:00 97.7 136 20 155/92 98 Room Air 97.7 05/02/17 12:41 185/98 05/02/17 12:00 130 05/02/17 12:00 97.8 120 22 185/98 98 Room Air 97.8 05/02/17 08:01 133 05/02/17 08:00 97.8 120 22 170/110 98 Room Air 97.8 Intake and Output 05/02/17 05/03/17 19:00 07:00 Intake Total 1030 ml 1100 ml Output Total 200 ml Balance 1030 ml 900 ml Intake IV Total 1030 ml 1100 ml Output Emesis 200 ml # Voids 2 2 # Bowel Movements 1 1 Laboratory Tests 05/02/17 08:45: Troponin I 0.000 05/02/17 08:50: Acetone Level Positive-small 05/02/17 15:25: Arterial Blood pH 7.282L, Arterial Blood Partial Pressure CO2 20.6*L, Arterial Blood Partial Pressure O2 121.0H, Arterial Blood HCO3 9.5L, Arterial Blood Oxygen Saturation 97.9, Arterial Blood Base Excess -14.9, Floyd Test Positive 05/02/17 18:10: Troponin I 0.000 Height (Feet): 5 Height (Inches): 4.00 Weight (Pounds): 149 General Appearance: no apparent distress Neck: normal alignment Cardiovascular: normal rate Respiratory/Chest: lungs clear Abdomen: normal bowel sounds Edema: 1+ Arm (L), 1+ Arm (R), 1+ Leg (L), 1+ Leg (R), 1+ Pedal (L), 1+ Pedal ( R), 1+ Generalized Objective Current Medications Medications (Trade) Dose Ordered Sig/Ramana Route PRN Reason Start Time Stop Time Status Last Admin Dose Admin Clonidine HCl (Catapres Tab) 0.1 mg Q6H PRN ORAL SBP>160 05/02/17 12:30 06/01/17 12:29 Dextrose (Dextrose 50%) STAT PRN IV Hypoglycemia 05/01/17 23:30 05/31/17 23:29 Dextrose (Dextrose 50%) STAT PRN IV Hypoglycemia 05/02/17 13:00 06/01/17 12:59 Heparin Sodium (Porcine) (Heparin 5000 units/ml) 5,000 units BID SUBQ 05/02/17 09:00 06/01/17 08:59 05/02/17 18:01 Insulin Aspart (NovoLOG) BEFORE MEALS AND HS SUBQ 05/02/17 16:30 06/01/17 16:29 05/03/17 06:16 Levofloxacin 150 ml @ 100 mls/hr Q24H IVPB 05/02/17 16:00 05/09/17 15:59 05/02/17 16:29 Lisinopril (Zestril) 10 mg DAILY ORAL 05/02/17 12:30 06/01/17 12:29 05/02/17 12:41 Loperamide HCl (Imodium) 2 mg QID PRN ORAL Diarrhea 05/02/17 02:45 06/01/17 02:44 05/02/17 05:25 Metronidazole 100 ml @ 100 mls/hr Q8HR IVPB 05/02/17 22:00 05/09/17 21:59 05/03/17 06:15 Morphine Sulfate (Morphine Sulfate) 2 mg Q4H PRN IVP For Pain 05/01/17 23:15 05/08/17 23:14 05/03/17 03:59 Ondansetron HCl (Zofran) 4 mg Q4HR PRN IVP Nausea & Vomiting 05/02/17 11:30 06/01/17 11:29 05/02/17 21:13 Pantoprazole (Protonix) 40 mg EVERY 12 HOURS IVP 05/02/17 21:00 06/01/17 20:59 05/02/17 21:14 Prochlorperazine (Compazine) 10 mg Q4H PRN IVP Nausea & Vomiting 05/02/17 11:30 06/01/17 11:29 05/03/17 03:13 Sodium Chloride 1,000 ml @ 100 mls/hr Q10H IV 05/02/17 15:45 06/01/17 15:44 05/03/17 01:45 Item Value Date Time Bedside Blood Glucose 279 mg/dl H 05/03/17 0654 Bedside Blood Glucose 292 mg/dl H 05/02/172114 Bedside Blood Glucose 359 mg/dl H 05/02/17 1800 Bedside Blood Glucose 379 mg/dl H 05/02/17 1405 BRODY BRAN 4, 2018 07:45
[2017-05-03 08:00] VITALS: BP 138/88
[2017-05-03] MEDS: Pantoprazole Inj IVP SCH ×2 (08:51→20:57)
[2017-05-03] MEDS: Lisinopril 10mg tab ORAL SCH (08:51)
[2017-05-03] MEDS: Heparin 5000 units/ml inj SUBQ SCH ×2 (08:52→17:38)
--- NOTE | 2017-05-03 09:11 | General Progress Note ---
Assessment/Plan Problem List: (1) Abdominal pain ICD Codes: R10.9 - Unspecified abdominal pain SNOMED: 61447270 (2) Gastroparesis ICD Codes: K31.84 - Gastroparesis SNOMED: 711731205 (3) Cannabinoid hyperemesis syndrome ICD Codes: F12.988 - Cannabis use, unspecified with other cannabis-induced disorder SNOMED: 268534865, 466442641 (4) Leukocytosis ICD Codes: D72.829 - Elevated white blood cell count, unspecified SNOMED: 263159172, 847525357 (5) Pyelonephritis ICD Codes: N12 - Tubulo-interstitial nephritis, not specified as acute or chronic SNOMED: 95145670 (6) Vomiting ICD Codes: R11.10 - Vomiting, unspecified SNOMED: 429469649 (7) Gram-negative bacteremia ICD Codes: R78.81 - Bacteremia SNOMED: 167795280208 (8) ACS (acute coronary syndrome) ICD Codes: I24.9 - Acute ischemic heart disease, unspecified SNOMED: 420966944 Status: unchanged Assessment/Plan ot pt diet o2 pulm tx cbc bmp am dc plan Subjective Constitutional: Reports: weakness Allergies: Coded Allergies: NO KNOWN ALLERGIES (Verified Allergy, Unknown, 05/01/17) All Systems: reviewed and negative except above Subjective o2nc sleepy Objective Last 24 Hour Vital Signs Date Time Temp Pulse Resp B/P (MAP) Pulse Ox O2 Delivery O2 Flow Rate FiO2 05/03/17 08:51 138/88 05/03/17 08:00 97.8 117 20 138/88 95 97.8 05/03/17 03:50 97.7 128 16 159/92 95 97.7 05/03/17 03:40 127 05/03/17 00:00 97.7 125 16 130/79 100 97.7 05/02/17 23:34 127 05/02/17 20:00 97.0 129 16 134/83 98 97.0 05/02/17 19:53 97.0 129 16 134/83 98 Room Air 97.0 05/02/17 19:41 132 05/02/17 16:00 131 05/02/17 16:00 97.7 136 20 155/92 98 Room Air 97.7 05/02/17 12:41 185/98 05/02/17 12:00 130 05/02/17 12:00 97.8 120 22 185/98 98 Room Air 97.8 Intake and Output 05/02/17 05/03/17 19:00 07:00 Intake Total 1030 ml 1100 ml Output Total 200 ml Balance 1030 ml 900 ml Intake IV Total 1030 ml 1100 ml Output Emesis 200 ml # Voids 2 2 # Bowel Movements 1 1 Laboratory Tests 05/02/17 15:25: Arterial Blood pH 7.282L, Arterial Blood Partial Pressure CO2 20.6*L, Arterial Blood Partial Pressure O2 121.0H, Arterial Blood HCO3 9.5L, Arterial Blood Oxygen Saturation 97.9, Arterial Blood Base Excess -14.9, Floyd Test Positive 05/02/17 18:10: Troponin I 0.000 Height (Feet): 5 Height (Inches): 4.00 Weight (Pounds): 149 General Appearance: lethargic EENT: normal ENT inspection Neck: normal alignment Cardiovascular: normal peripheral pulses, normal rate, regular rhythm Respiratory/Chest: chest wall non-tender, lungs clear, normal breath sounds Abdomen: normal bowel sounds, non tender, soft Extremities: normal inspection Edema: no edema noted Arm (L), no edema noted Arm (R), no edema noted Leg (L), no edema noted Leg (R), no edema noted Pedal (L), no edema noted Pedal (R), no edema noted Generalized Neurologic: motor weakness Skin: normal pigmentation, warm/dry SHANTI HAWKINS May 03, 2017 09:11
--- NOTE | 2017-05-03 09:37 | General Progress Note ---
Assessment/Plan Problem List: (1) Cannabinoid hyperemesis syndrome ICD Codes: F12.988 - Cannabis use, unspecified with other cannabis-induced disorder SNOMED: 564879570, 059942940 (2) Abdominal pain ICD Codes: R10.9 - Unspecified abdominal pain SNOMED: 64179022 (3) DM (diabetes mellitus) ICD Codes: E11.9 - Type 2 diabetes mellitus without complications SNOMED: 93855125 (4) Vomiting ICD Codes: R11.10 - Vomiting, unspecified SNOMED: 693998262 Assessment/Plan neg ct ivf control nausea start diet and advance as tolerated Subjective ROS Limited/Unobtainable: Yes Allergies: Coded Allergies: NO KNOWN ALLERGIES (Verified Allergy, Unknown, 05/01/17) Subjective N/V improved wants to eat Objective Last 24 Hour Vital Signs Date Time Temp Pulse Resp B/P (MAP) Pulse Ox O2 Delivery O2 Flow Rate FiO2 05/03/17 08:51 138/88 05/03/17 08:00 97.8 117 20 138/88 95 97.8 05/03/17 03:50 97.7 128 16 159/92 95 97.7 05/03/17 03:40 127 05/03/17 00:00 97.7 125 16 130/79 100 97.7 05/02/17 23:34 127 05/02/17 20:00 97.0 129 16 134/83 98 97.0 05/02/17 19:53 97.0 129 16 134/83 98 Room Air 97.0 05/02/17 19:41 132 05/02/17 16:00 131 05/02/17 16:00 97.7 136 20 155/92 98 Room Air 97.7 05/02/17 12:41 185/98 05/02/17 12:00 130 05/02/17 12:00 97.8 120 22 185/98 98 Room Air 97.8 Intake and Output 05/02/17 05/03/17 19:00 07:00 Intake Total 1030 ml 1100 ml Output Total 200 ml Balance 1030 ml 900 ml Intake IV Total 1030 ml 1100 ml Output Emesis 200 ml # Voids 2 2 # Bowel Movements 1 1 Laboratory Tests 05/02/17 15:25: Arterial Blood pH 7.282L, Arterial Blood Partial Pressure CO2 20.6*L, Arterial Blood Partial Pressure O2 121.0H, Arterial Blood HCO3 9.5L, Arterial Blood Oxygen Saturation 97.9, Arterial Blood Base Excess -14.9, Floyd Test Positive 05/02/17 18:10: Troponin I 0.000 Height (Feet): 5 Height (Inches): 4.00 Weight (Pounds): 149 General Appearance: alert EENT: normal ENT inspection Neck: supple Cardiovascular: normal rate Respiratory/Chest: decreased breath sounds Abdomen: normal bowel sounds, non tender, soft Extremities: non-tender CLARISSA TOM May 03, 2017 09:37
[2017-05-03] MEDS: Levemir Flexpen SUBQ SCH ×2 (10:17→17:37)
[2017-05-03 12:00] VITALS: BP 155/85
[2017-05-03 12:24] LABS: HEMATOCRIT 42.9 % (37.0-47.0); HEMOGLOBIN 15.2 G/DL (12.0-16.0); MEAN CORPUSCULAR VOLUME 87 FL (80-99); PLATELET COUNT 427 K/UL (150-450); RED BLOOD COUNT 4.94 M/UL (4.20-5.40); WHITE BLOOD COUNT 16.4 K/UL (4.8-10.8)
[2017-05-03 12:37] LABS: ALANINE AMINOTRANSFERASE 29 U/L (12-78); ALBUMIN 3.6 G/DL (3.4-5.0); ALBUMIN/GLOBULIN RATIO 0.8 (1.0-2.7); ALKALINE PHOSPHATASE 92 U/L (46-116); ANION GAP 19 mmol/L (5-15); ASPARTATE AMINO TRANSFERASE 11 U/L (15-37); BILIRUBIN,TOTAL 0.4 MG/DL (0.2-1.0); BLOOD UREA NITROGEN 18 mg/dL (7-18); CALCIUM 10.6 MG/DL (8.5-10.1); CARBON DIOXIDE 14 MMOL/L (21-32); CHLORIDE 103 MMOL/L (98-107); CREATININE 0.8 MG/DL (0.55-1.30); POTASSIUM 3.3 MMOL/L (3.5-5.1); SODIUM 136 MMOL/L (136-145)
--- NOTE | 2017-05-03 14:53 | Infectious Diseases Prog Note ---
Assessment/Plan Assessment/Plan ASSESSMENT: The patient is a 56-year-old female with: Nausea, vomiting. Leukocytosis worsen ? etio ( due to N/v and acute stress ) Rule out bacteremia. C. difficile colitis : Neg Cannabinoid hyperemesis syndrome / Gastroparesis. Diabetes. History of urinary tract infection PLAN: will continue the patient on Levaquin and Flagyl d# 2 for now Monitor CBC Monitor BMP. Monitor blood and urine cultures. Monitor chest x-ray. Subjective Constitutional: Denies: no symptoms, fever, chills, fatigue, anorexia, drenching sweats, other Allergies: Coded Allergies: NO KNOWN ALLERGIES (Verified Allergy, Unknown, 05/01/17) Objective Vital Signs Last 24 Hour Vital Signs Date Time Temp Pulse Resp B/P (MAP) Pulse Ox O2 Delivery O2 Flow Rate FiO2 05/03/17 12:07 97.8 05/03/17 11:37 97.8 05/03/17 08:51 138/88 05/03/17 08:00 97.8 117 20 138/88 95 97.8 05/03/17 08:00 116 05/03/17 03:50 97.7 128 16 159/92 95 97.7 05/03/17 03:40 127 05/03/17 00:00 97.7 125 16 130/79 100 97.7 05/02/17 23:34 127 05/02/17 20:00 97.0 129 16 134/83 98 97.0 05/02/17 19:53 97.0 129 16 134/83 98 Room Air 97.0 05/02/17 19:41 132 05/02/17 16:00 131 05/02/17 16:00 97.7 136 20 155/92 98 Room Air 97.7 Height (Feet): 5 Height (Inches): 4.00 Weight (Pounds): 149 HEENT: anicteric Respiratory/Chest: normal breath sounds Cardiovascular: regularly irregular Abdomen: no organomegaly Microbiology Date/Time Source Procedure Growth Status 05/02/17 07:30 Stool Clostridium difficile Toxin Assay - Final Complete 05/02/17 15:47 Urine,Clean Catch Urine Culture - Preliminary Gram Negative Bacillus 1 Resulted Laboratory Tests Test 05/02/17 15:25 05/02/17 18:10 05/03/17 12:00 Arterial Blood pH 7.282 (7.350-7.450) Arterial Blood Partial Pressure CO2 20.6 mmHg (35.0-45.0) *L Arterial Blood Partial Pressure O2 121.0 mmHg (75.0-100.0) H Arterial Blood HCO3 9.5 mmol/L (22.0-26.0) L Arterial Blood Oxygen Saturation 97.9 % (92.0-98.0) Arterial Blood Base Excess -14.9 Floyd Test Positive Troponin I 0.000 ng/mL (0.000-0.056) White Blood Count 16.4 K/UL (4.8-10.8) H Red Blood Count 4.94 M/UL (4.20-5.40) Hemoglobin 15.2 G/DL (12.0-16.0) Hematocrit 42.9 % (37.0-47.0) Mean Corpuscular Volume 87 FL (80-99) Mean Corpuscular Hemoglobin 30.8 PG (27.0-31.0) Mean Corpuscular Hemoglobin Concent 35.3 G/DL (32.0-36.0) Red Cell Distribution Width 12.0 % (11.6-14.8) Platelet Count 427 K/UL (150-450) Mean Platelet Volume 6.3 FL (6.5-10.1) L Neutrophils (%) (Auto) % (45.0-75.0) Lymphocytes (%) (Auto) % (20.0-45.0) Monocytes (%) (Auto) % (1.0-10.0) Eosinophils (%) (Auto) % (0.0-3.0) Basophils (%) (Auto) % (0.0-2.0) Differential Total Cells Counted 100 Neutrophils % (Manual) 89 % (45-75) H Lymphocytes % (Manual) 7 % (20-45) L Monocytes % (Manual) 4 % (1-10) Eosinophils % (Manual) 0 % (0-3) Basophils % (Manual) 0 % (0-2) Band Neutrophils 0 % (0-8) Platelet Estimate Adequate Platelet Morphology Normal Red Blood Cell Morphology Normal Sodium Level 136 MMOL/L (136-145) Potassium Level 3.3 MMOL/L (3.5-5.1) L Chloride Level 103 MMOL/L (98-107) Carbon Dioxide Level 14 MMOL/L (21-32) L Anion Gap 19 mmol/L (5-15) H Blood Urea Nitrogen 18 mg/dL (7-18) Creatinine 0.8 MG/DL (0.55-1.30) Estimat Glomerular Filtration Rate > 60 mL/min (>60) Glucose Level 258 MG/DL (74-106) H Hemoglobin A1c 11.3 % (4.3-6.0) H Calcium Level 10.6 MG/DL (8.5-10.1) H Total Bilirubin 0.4 MG/DL (0.2-1.0) Aspartate Amino Transf (AST/SGOT) 11 U/L (15-37) L Alanine Aminotransferase (ALT/SGPT) 29 U/L (12-78) Alkaline Phosphatase 92 U/L (46-116) Total Protein 8.4 G/DL (6.4-8.2) H Albumin 3.6 G/DL (3.4-5.0) Globulin 4.8 g/dL Albumin/Globulin Ratio 0.8 (1.0-2.7) L Current Medications Medications (Trade) Dose Ordered Sig/Ramana Route PRN Reason Start Time Stop Time Status Last Admin Dose Admin Clonidine HCl (Catapres Tab) 0.1 mg Q6H PRN ORAL SBP>160 05/02/17 12:30 06/01/17 12:29 Dextrose (Dextrose 50%) STAT PRN IV Hypoglycemia 05/02/17 13:00 06/01/17 12:59 Heparin Sodium (Porcine) (Heparin 5000 units/ml) 5,000 units BID SUBQ 05/02/17 09:00 06/01/17 08:59 05/03/17 08:52 Insulin Aspart (NovoLOG) BEFORE MEALS AND HS SUBQ 05/02/17 16:30 06/01/17 16:29 05/03/17 11:38 Insulin Aspart (NovoLOG) 8 units NOVOTIAC SUBQ 05/03/17 11:50 06/02/17 11:49 05/03/17 13:30 Insulin Detemir (Levemir) 20 units BID SUBQ 05/03/17 09:00 06/02/17 08:59 05/03/17 10:17 Levofloxacin 150 ml @ 100 mls/hr Q24H IVPB 05/02/17 16:00 05/09/17 15:59 05/02/17 16:29 Lisinopril (Zestril) 10 mg DAILY ORAL 05/02/17 12:30 06/01/17 12:29 05/03/17 08:51 Loperamide HCl (Imodium) 2 mg QID PRN ORAL Diarrhea 05/02/17 02:45 06/01/17 02:44 05/02/17 05:25 Metronidazole 100 ml @ 100 mls/hr Q8HR IVPB 05/02/17 22:00 05/09/17 21:59 05/03/17 14:28 Morphine Sulfate (Morphine Sulfate) 2 mg Q4H PRN IVP For Pain 05/01/17 23:15 05/08/17 23:14 05/03/17 11:37 Ondansetron HCl (Zofran) 4 mg Q4HR PRN IVP Nausea & Vomiting 05/02/17 11:30 06/01/17 11:29 05/02/17 21:13 Pantoprazole (Protonix) 40 mg EVERY 12 HOURS IVP 05/02/17 21:00 06/01/17 20:59 05/03/17 08:51 Prochlorperazine (Compazine) 10 mg Q4H PRN IVP Nausea & Vomiting 05/02/17 11:30 06/01/17 11:29 05/03/17 03:13 Sodium Chloride 1,000 ml @ 100 mls/hr Q10H IV 05/02/17 15:45 06/01/17 15:44 05/03/17 11:51 JACKIE SOLIMAN M.D. May 03, 2017 14:53
[2017-05-03 16:00] VITALS: BP 163/113
[2017-05-03] MEDS ORDERED: D5 1/2NS 1000ml IV ONE (18:53)
[2017-05-03 20:00] VITALS: BP 156/93
[2017-05-04] VITALS: BP 154/89
[2017-05-04] MEDS: Morphine Sulfate 2mg/ml Inj IVP PRN ×3 (01:12→10:41)
[2017-05-04 04:00] VITALS: BP 151/82
[2017-05-04] MEDS: NovoLOG Insulin Flexpen SUBQ SCH ×7 (06:41→20:39)
--- NOTE | 2017-05-04 07:37 | General Progress Note ---
Assessment/Plan Problem List: (1) Gram-negative bacteremia ICD Codes: R78.81 - Bacteremia SNOMED: 766415117957 (2) Pyelonephritis ICD Codes: N12 - Tubulo-interstitial nephritis, not specified as acute or chronic SNOMED: 29124995 (3) Abdominal pain ICD Codes: R10.9 - Unspecified abdominal pain SNOMED: 28767109 (4) Gastroparesis ICD Codes: K31.84 - Gastroparesis SNOMED: 699547246 (5) Vomiting ICD Codes: R11.10 - Vomiting, unspecified SNOMED: 520471554 (6) ACS (acute coronary syndrome) ICD Codes: I24.9 - Acute ischemic heart disease, unspecified SNOMED: 625128029 (7) Cannabinoid hyperemesis syndrome ICD Codes: F12.988 - Cannabis use, unspecified with other cannabis-induced disorder SNOMED: 691653439, 872567056 (8) Leukocytosis ICD Codes: D72.829 - Elevated white blood cell count, unspecified SNOMED: 509457558, 489234176 Assessment/Plan Levemir 20 units bid Novolog 8 units ac tid - hold for NPO status continue IV hydration continue NISS Subjective Allergies: Coded Allergies: NO KNOWN ALLERGIES (Verified Allergy, Unknown, 05/01/17) All Systems: reviewed and negative except above Subjective glycemic control improved nausea improved Objective Last 24 Hour Vital Signs Date Time Temp Pulse Resp B/P (MAP) Pulse Ox O2 Delivery O2 Flow Rate FiO2 05/04/17 04:00 98.0 89 18 151/82 96 98.0 05/04/17 03:37 99 05/04/17 00:00 96 05/04/17 00:00 96.4 98 18 154/89 97 96.4 05/03/17 20:00 97.5 109 19 156/93 97 97.5 05/03/17 20:00 114 05/03/17 17:35 163/113 05/03/17 16:00 126 05/03/17 16:00 97.9 118 20 163/113 99 97.9 05/03/17 12:07 97.8 05/03/17 12:00 97.8 113 18 155/85 99 97.8 05/03/17 12:00 120 05/03/17 11:37 97.8 05/03/17 08:51 138/88 3/4/18 08:00 97.8 117 20 138/88 95 97.8 05/03/17 08:00 116 Intake and Output 05/03/17 05/04/17 19:00 07:00 Intake Total 850 ml Output Total 600 ml Balance 850 ml -600 ml Intake Oral 600 ml IV Total 250 ml Output Urine Total 600 ml # Voids 2 Laboratory Tests 05/03/17 12:00: White Blood Count 16.4H, Red Blood Count 4.94, Hemoglobin 15.2, Hematocrit 42.9 , Mean Corpuscular Volume 87, Mean Corpuscular Hemoglobin 30.8, Mean Corpuscular Hemoglobin Concent 35.3, Red Cell Distribution Width 12.0, Platelet Count 427, Mean Platelet Volume 6.3L, Neutrophils (%) (Auto) , Lymphocytes (%) ( Auto) , Monocytes (%) (Auto) , Eosinophils (%) (Auto) , Basophils (%) (Auto) , Differential Total Cells Counted 100, Neutrophils % (Manual) 89H, Lymphocytes % (Manual) 7L, Monocytes % (Manual) 4, Eosinophils % (Manual) 0, Basophils % ( Manual) 0, Band Neutrophils 0, Platelet Estimate Adequate, Platelet Morphology Normal, Red Blood Cell Morphology Normal, Sodium Level 136, Potassium Level 3.3L , Chloride Level 103, Carbon Dioxide Level 14L, Anion Gap 19H, Blood Urea Nitrogen 18, Creatinine 0.8, Estimat Glomerular Filtration Rate > 60, Glucose Level 258H, Hemoglobin A1c 11.3H, Calcium Level 10.6H, Total Bilirubin 0.4, Aspartate Amino Transf (AST/SGOT) 11L, Alanine Aminotransferase (ALT/SGPT) 29, Alkaline Phosphatase 92, Total Protein 8.4H, Albumin 3.6, Globulin 4.8, Albumin/ Globulin Ratio 0.8L Height (Feet): 5 Height (Inches): 4.00 Weight (Pounds): 149 General Appearance: no apparent distress Neck: normal alignment Cardiovascular: normal rate Respiratory/Chest: decreased breath sounds Abdomen: normal bowel sounds Objective Current Medications Medications (Trade) Dose Ordered Sig/Ramana Route PRN Reason Start Time Stop Time Status Last Admin Dose Admin Clonidine HCl (Catapres Tab) 0.1 mg Q6H PRN ORAL SBP>160 05/02/17 12:30 06/01/17 12:29 05/03/17 17:35 Dextrose (Dextrose 50%) STAT PRN IV Hypoglycemia 05/02/17 13:00 06/01/17 12:59 Heparin Sodium (Porcine) (Heparin 5000 units/ml) 5,000 units BID SUBQ 05/02/17 09:00 06/01/17 08:59 05/03/17 17:38 Insulin Aspart (NovoLOG) BEFORE MEALS AND HS SUBQ 05/02/17 16:30 06/01/17 16:29 05/04/17 06:41 Insulin Aspart (NovoLOG) 8 units NOVOTIAC SUBQ 05/03/17 11:50 06/02/17 11:49 05/04/17 06:44 Insulin Detemir (Levemir) 20 units BID SUBQ 05/03/17 09:00 06/02/17 08:59 05/03/17 17:37 Levofloxacin 150 ml @ 100 mls/hr Q24H IVPB 05/02/17 16:00 05/09/17 15:59 05/03/17 16:08 Lisinopril (Zestril) 10 mg DAILY ORAL 05/02/17 12:30 06/01/17 12:29 05/03/17 08:51 Loperamide HCl (Imodium) 2 mg QID PRN ORAL Diarrhea 05/02/17 02:45 06/01/17 02:44 05/02/17 05:25 Metronidazole 100 ml @ 100 mls/hr Q8HR IVPB 05/02/17 22:00 05/09/17 21:59 05/04/17 06:20 Morphine Sulfate (Morphine Sulfate) 2 mg Q4H PRN IVP For Pain 05/01/17 23:15 05/08/17 23:14 05/04/17 05:36 Ondansetron HCl (Zofran) 4 mg Q4HR PRN IVP Nausea & Vomiting 05/02/17 11:30 06/01/17 11:29 05/04/17 04:27 Pantoprazole (Protonix) 40 mg EVERY 12 HOURS IVP 05/02/17 21:00 06/01/17 20:59 05/03/17 20:57 Prochlorperazine (Compazine) 10 mg Q4H PRN IVP Nausea & Vomiting 05/02/17 11:30 06/01/17 11:29 05/03/17 03:13 Sodium Chloride 1,000 ml @ 100 mls/hr Q10H IV 05/02/17 15:45 06/01/17 15:44 05/03/17 22:12 Item Value Date Time Bedside Blood Glucose 191 mg/dl H 05/04/17 0644 Bedside Blood Glucose 139 mg/dl H 05/03/17 2110 Bedside Blood Glucose 220 mg/dl H 05/03/17 1737 Bedside Blood Glucose 257 mg/dl H 05/03/17 1330 Bedside Blood Glucose 279 mg/dl H 05/03/17 1017 Bedside Blood Glucose 279 mg/dl H 05/03/17 0654 BRODY BRAN 5, 2018 07:37
[2017-05-04 08:00] VITALS: BP 155/93
[2017-05-04] MEDS: Lisinopril 10mg tab ORAL SCH (08:52)
[2017-05-04] MEDS: Pantoprazole Inj IVP SCH ×2 (08:52→20:36)
[2017-05-04] MEDS: Heparin 5000 units/ml inj SUBQ SCH ×2 (08:53→18:21)
[2017-05-04] MEDS: Levemir Flexpen SUBQ SCH ×2 (08:55→18:22)
--- NOTE | 2017-05-04 09:12 | Nephrology Progress Note ---
Assessment/Plan Assessment 1. Hyponatremia due to elevated BG corrected sodium basically is 137. 2. Anion gap acidosis, need to rule out diabetic ketoacidosis. 3. Urinary tract infection. 4. Rule out diabetic nephropathy with 3+ proteinuria. 5. Uncontrolled diabetes. 6. Uncontrolled hypertension. Plan continue IVF Check stat chem replace electrolyte as need it monitoring in and out put Subjective Constitutional: Reports: malaise, weakness HEENT: Reports: no symptoms Neurologic/Psychiatric: Reports: no symptoms Subjective alert and awake nausea has improved Objective Objective Last 24 Hour Vital Signs Date Time Temp Pulse Resp B/P (MAP) Pulse Ox O2 Delivery O2 Flow Rate FiO2 05/04/17 08:52 155/93 05/04/17 08:00 97.0 110 20 155/93 98 Room Air 97.0 05/04/17 04:00 98.0 89 18 151/82 96 98.0 05/04/17 03:37 99 05/04/17 00:00 96 05/04/17 00:00 96.4 98 18 154/89 97 96.4 05/03/17 20:00 97.5 109 19 156/93 97 97.5 05/03/17 20:00 114 05/03/17 17:35 163/113 05/03/17 16:00 126 05/03/17 16:00 97.9 118 20 163/113 99 97.9 05/03/17 12:07 97.8 05/03/17 12:00 97.8 113 18 155/85 99 97.8 05/03/17 12:00 120 05/03/17 11:37 97.8 Intake and Output 05/03/17 05/04/17 19:00 07:00 Intake Total 850 ml 900 ml Output Total 600 ml Balance 850 ml 300 ml Intake Oral 600 ml IV Total 250 ml 900 ml Output Urine Total 600 ml # Voids 2 Laboratory Tests 05/03/17 12:00: White Blood Count 16.4H, Red Blood Count 4.94, Hemoglobin 15.2, Hematocrit 42.9 , Mean Corpuscular Volume 87, Mean Corpuscular Hemoglobin 30.8, Mean Corpuscular Hemoglobin Concent 35.3, Red Cell Distribution Width 12.0, Platelet Count 427, Mean Platelet Volume 6.3L, Neutrophils (%) (Auto) , Lymphocytes (%) ( Auto) , Monocytes (%) (Auto) , Eosinophils (%) (Auto) , Basophils (%) (Auto) , Differential Total Cells Counted 100, Neutrophils % (Manual) 89H, Lymphocytes % (Manual) 7L, Monocytes % (Manual) 4, Eosinophils % (Manual) 0, Basophils % ( Manual) 0, Band Neutrophils 0, Platelet Estimate Adequate, Platelet Morphology Normal, Red Blood Cell Morphology Normal, Sodium Level 136, Potassium Level 3.3L , Chloride Level 103, Carbon Dioxide Level 14L, Anion Gap 19H, Blood Urea Nitrogen 18, Creatinine 0.8, Estimat Glomerular Filtration Rate > 60, Glucose Level 258H, Hemoglobin A1c 11.3H, Calcium Level 10.6H, Total Bilirubin 0.4, Aspartate Amino Transf (AST/SGOT) 11L, Alanine Aminotransferase (ALT/SGPT) 29, Alkaline Phosphatase 92, Total Protein 8.4H, Albumin 3.6, Globulin 4.8, Albumin/ Globulin Ratio 0.8L Height (Feet): 5 Height (Inches): 4.00 Weight (Pounds): 149 Objective HEAD AND NECK: No JVP. No LAD. No thyromegaly. Extraocular movements intact. Pupils are reactive to light and accommodation. LUNGS: Clear to auscultation. CARDIAC: Regular rate and rhythm. S1 and S2. No murmur. No rub. ABDOMEN: Soft, nontender, and nondistended. EXTREMITIES: No edema. No clubbing. No cyanosis. [place] May 04, 2017 09:12
[2017-05-04 09:19] LABS: BASOPHILS % (AUTO) 0.4 % (0.0-2.0); HEMATOCRIT 39.2 % (37.0-47.0); HEMOGLOBIN 14.1 G/DL (12.0-16.0); LYMPHOCYTES % (AUTO) 12.9 % (20.0-45.0); MEAN CORPUSCULAR VOLUME 85 FL (80-99); MONOCYTES % (AUTO) 5.3 % (1.0-10.0); NEUTROPHILS % (AUTO) 81.4 % (45.0-75.0); PLATELET COUNT 370 K/UL (150-450); RED BLOOD COUNT 4.59 M/UL (4.20-5.40); RED CELL DISTRIBUTION WIDTH 11.3 % (11.6-14.8); WHITE BLOOD COUNT 11.3 K/UL (4.8-10.8)
[2017-05-04 09:31] LABS: ANION GAP 15 mmol/L (5-15); BLOOD UREA NITROGEN 10 mg/dL (7-18); CALCIUM 9.7 MG/DL (8.5-10.1); CARBON DIOXIDE 20 MMOL/L (21-32); CHLORIDE 100 MMOL/L (98-107); CREATININE 0.5 MG/DL (0.55-1.30); SODIUM 131 MMOL/L (136-145)
[2017-05-04 09:38] LABS: POTASSIUM 2.4 MMOL/L (3.5-5.1)
--- NOTE | 2017-05-04 11:14 | GI Progress Note ---
Assessment/Plan Problems: (1) DM (diabetes mellitus) ICD Codes: E11.9 - Type 2 diabetes mellitus without complications SNOMED: 68700104 (2) Vomiting ICD Codes: R11.10 - Vomiting, unspecified SNOMED: 454311085 (3) Gastroparesis ICD Codes: K31.84 - Gastroparesis SNOMED: 945742146 (4) Cannabinoid hyperemesis syndrome ICD Codes: F12.988 - Cannabis use, unspecified with other cannabis-induced disorder SNOMED: 319043716, 505764910 (5) Abdominal pain ICD Codes: R10.9 - Unspecified abdominal pain SNOMED: 43133513 Status: stable Status Narrative Discussed with Dr. Disla. Assessment/Plan utox positive for MJ neg ct ivf zofran prn, reglan for persistent vomiting adv diet as tolerated fu labs Subjective Gastrointestinal/Abdominal: Reports: no symptoms Objective Last 24 Hour Vital Signs Date Time Temp Pulse Resp B/P (MAP) Pulse Ox O2 Delivery O2 Flow Rate FiO2 05/04/17 08:52 155/93 05/04/17 08:00 97.0 110 20 155/93 98 Room Air 97.0 05/04/17 04:00 98.0 89 18 151/82 96 98.0 05/04/17 03:37 99 05/04/17 00:00 96 05/04/17 00:00 96.4 98 18 154/89 97 96.4 05/03/17 20:00 97.5 109 19 156/93 97 97.5 05/03/17 20:00 114 05/03/17 17:35 163/113 05/03/17 16:00 126 05/03/17 16:00 97.9 118 20 163/113 99 97.9 05/03/17 12:07 97.8 05/03/17 12:00 97.8 113 18 155/85 99 97.8 05/03/17 12:00 120 05/03/17 11:37 97.8 Intake and Output 05/03/17 05/04/17 18:59 06:59 Intake Total 850 ml 900 ml Output Total 600 ml Balance 850 ml 300 ml Intake Oral 600 ml IV Total 250 ml 900 ml Output Urine Total 600 ml # Voids 2 Laboratory Tests Test 05/03/17 12:00 05/04/17 08:10 White Blood Count 16.4 K/UL (4.8-10.8) H 11.3 K/UL (4.8-10.8) H Red Blood Count 4.94 M/UL (4.20-5.40) 4.59 M/UL (4.20-5.40) Hemoglobin 15.2 G/DL (12.0-16.0) 14.1 G/DL (12.0-16.0) Hematocrit 42.9 % (37.0-47.0) 39.2 % (37.0-47.0) Mean Corpuscular Volume 87 FL (80-99) 85 FL (80-99) Mean Corpuscular Hemoglobin 30.8 PG (27.0-31.0) 30.7 PG (27.0-31.0) Mean Corpuscular Hemoglobin Concent 35.3 G/DL (32.0-36.0) 36.0 G/DL (32.0-36.0) Red Cell Distribution Width 12.0 % (11.6-14.8) 11.3 % (11.6-14.8) L Platelet Count 427 K/UL (150-450) 370 K/UL (150-450) Mean Platelet Volume 6.3 FL (6.5-10.1) L 5.9 FL (6.5-10.1) L Neutrophils (%) (Auto) % (45.0-75.0) 81.4 % (45.0-75.0) H Lymphocytes (%) (Auto) % (20.0-45.0) 12.9 % (20.0-45.0) L Monocytes (%) (Auto) % (1.0-10.0) 5.3 % (1.0-10.0) Eosinophils (%) (Auto) % (0.0-3.0) 0.0 % (0.0-3.0) Basophils (%) (Auto) % (0.0-2.0) 0.4 % (0.0-2.0) Differential Total Cells Counted 100 Neutrophils % (Manual) 89 % (45-75) H Lymphocytes % (Manual) 7 % (20-45) L Monocytes % (Manual) 4 % (1-10) Eosinophils % (Manual) 0 % (0-3) Basophils % (Manual) 0 % (0-2) Band Neutrophils 0 % (0-8) Platelet Estimate Adequate Platelet Morphology Normal Red Blood Cell Morphology Normal Sodium Level 136 MMOL/L (136-145) 131 MMOL/L (136-145) L Potassium Level 3.3 MMOL/L (3.5-5.1) L 2.4 MMOL/L (3.5-5.1) *L Chloride Level 103 MMOL/L (98-107) 100 MMOL/L (98-107) Carbon Dioxide Level 14 MMOL/L (21-32) L 20 MMOL/L (21-32) L Anion Gap 19 mmol/L (5-15) H 15 mmol/L (5-15) Blood Urea Nitrogen 18 mg/dL (7-18) 10 mg/dL (7-18) Creatinine 0.8 MG/DL (0.55-1.30) 0.5 MG/DL (0.55-1.30) L Estimat Glomerular Filtration Rate > 60 mL/min (>60) > 60 mL/min (>60) Glucose Level 258 MG/DL (74-106) H 194 MG/DL (74-106) H Hemoglobin A1c 11.3 % (4.3-6.0) H Calcium Level 10.6 MG/DL (8.5-10.1) H 9.7 MG/DL (8.5-10.1) Total Bilirubin 0.4 MG/DL (0.2-1.0) Aspartate Amino Transf (AST/SGOT) 11 U/L (15-37) L Alanine Aminotransferase (ALT/SGPT) 29 U/L (12-78) Alkaline Phosphatase 92 U/L (46-116) Total Protein 8.4 G/DL (6.4-8.2) H Albumin 3.6 G/DL (3.4-5.0) Globulin 4.8 g/dL Albumin/Globulin Ratio 0.8 (1.0-2.7) L Height (Feet): 5 Height (Inches): 4.00 Weight (Pounds): 149 General Appearance: WD/WN, no apparent distress, alert, overweight Cardiovascular: normal rate Respiratory/Chest: normal breath sounds, no respiratory distress Abdominal Exam: normal bowel sounds, non tender, soft Extremities: normal range of motion, non-tender Alejandro,Jeanine Bertin N.P. May 04, 2017 11:14
--- NOTE | 2017-05-04 14:07 | General Progress Note ---
Assessment/Plan Problem List: (1) Abdominal pain ICD Codes: R10.9 - Unspecified abdominal pain SNOMED: 78382322 (2) Gastroparesis ICD Codes: K31.84 - Gastroparesis SNOMED: 493682468 (3) Cannabinoid hyperemesis syndrome ICD Codes: F12.988 - Cannabis use, unspecified with other cannabis-induced disorder SNOMED: 692992261, 809097230 (4) Leukocytosis ICD Codes: D72.829 - Elevated white blood cell count, unspecified SNOMED: 488822896, 540531748 (5) Pyelonephritis ICD Codes: N12 - Tubulo-interstitial nephritis, not specified as acute or chronic SNOMED: 74263845 (6) Vomiting ICD Codes: R11.10 - Vomiting, unspecified SNOMED: 351432325 (7) Gram-negative bacteremia ICD Codes: R78.81 - Bacteremia SNOMED: 774823470654 (8) ACS (acute coronary syndrome) ICD Codes: I24.9 - Acute ischemic heart disease, unspecified SNOMED: 250872215 Assessment/Plan ot pt diet o2 pulm tx cbc bmp am dc plan Subjective Constitutional: Reports: weakness Allergies: Coded Allergies: NO KNOWN ALLERGIES (Verified Allergy, Unknown, 05/01/17) All Systems: reviewed and negative except above Subjective o2nc sleepy c/o poor swallow Objective Last 24 Hour Vital Signs Date Time Temp Pulse Resp B/P (MAP) Pulse Ox O2 Delivery O2 Flow Rate FiO2 05/04/17 08:52 155/93 05/04/17 08:00 97.0 110 20 155/93 98 Room Air 97.0 05/04/17 08:00 109 05/04/17 04:00 98.0 89 18 151/82 96 98.0 05/04/17 03:37 99 05/04/17 00:00 96 05/04/17 00:00 96.4 98 18 154/89 97 96.4 05/03/17 20:00 97.5 109 19 156/93 97 97.5 05/03/17 20:00 114 05/03/17 17:35 163/113 05/03/17 16:00 126 05/03/17 16:00 97.9 118 20 163/113 99 97.9 Intake and Output 05/03/17 05/04/17 19:00 07:00 Intake Total 850 ml 900 ml Output Total 600 ml Balance 850 ml 300 ml Intake Oral 600 ml IV Total 250 ml 900 ml Output Urine Total 600 ml # Voids 2 Laboratory Tests 05/04/17 08:10: White Blood Count 11.3H, Red Blood Count 4.59, Hemoglobin 14.1, Hematocrit 39.2 , Mean Corpuscular Volume 85, Mean Corpuscular Hemoglobin 30.7, Mean Corpuscular Hemoglobin Concent 36.0, Red Cell Distribution Width 11.3L, Platelet Count 370, Mean Platelet Volume 5.9L, Neutrophils (%) (Auto) 81.4H, Lymphocytes (%) (Auto) 12.9L, Monocytes (%) (Auto) 5.3, Eosinophils (%) (Auto) 0.0, Basophils (%) (Auto) 0.4, Sodium Level 131L, Potassium Level 2.4*L, Chloride Level 100, Carbon Dioxide Level 20L, Anion Gap 15, Blood Urea Nitrogen 10, Creatinine 0.5L, Estimat Glomerular Filtration Rate > 60, Glucose Level 194H , Calcium Level 9.7 Height (Feet): 5 Height (Inches): 4.00 Weight (Pounds): 149 General Appearance: lethargic EENT: normal ENT inspection Neck: normal alignment Cardiovascular: normal peripheral pulses, normal rate, regular rhythm Respiratory/Chest: chest wall non-tender, lungs clear, normal breath sounds Abdomen: normal bowel sounds, non tender, soft Extremities: normal inspection Edema: no edema noted Arm (L), no edema noted Arm (R), no edema noted Leg (L), no edema noted Leg (R), no edema noted Pedal (L), no edema noted Pedal (R), no edema noted Generalized Neurologic: responsive, motor weakness Skin: normal pigmentation, warm/dry SHANTI HAWKINS May 04, 2017 14:07
[2017-05-04 16:00] VITALS: BP 168/111
[2017-05-04] MEDS ORDERED: Zolpidem 5mg tab ORAL PRN (18:15)
[2017-05-04 20:00] VITALS: BP 153/93
--- NOTE | 2017-05-04 21:38 | Infectious Diseases Prog Note ---
Assessment/Plan Assessment/Plan ASSESSMENT: The patient is a 56-year-old female with: Nausea, vomiting. Leukocytosis improving Rule out bacteremia. C. difficile colitis : Neg Cannabinoid hyperemesis syndrome / Gastroparesis. Diabetes. History of urinary tract infection PLAN: will continue the patient on Levaquin and Flagyl d# 3 for now Monitor CBC Monitor BMP. Monitor blood and urine cultures. Monitor chest x-ray. Subjective Constitutional: Denies: no symptoms, fever, chills, fatigue, anorexia, drenching sweats, other Allergies: Coded Allergies: NO KNOWN ALLERGIES (Verified Allergy, Unknown, 05/01/17) Objective Vital Signs Last 24 Hour Vital Signs Date Time Temp Pulse Resp B/P (MAP) Pulse Ox O2 Delivery O2 Flow Rate FiO2 05/04/17 20:00 98.1 102 20 153/93 100 Room Air 98.1 05/04/17 16:56 168/111 05/04/17 16:00 98.1 88 20 168/111 97 Room Air 98.1 05/04/17 15:09 133 05/04/17 12:03 104 05/04/17 08:52 155/93 05/04/17 08:00 97.0 110 20 155/93 98 Room Air 97.0 05/04/17 08:00 109 05/04/17 04:00 98.0 89 18 151/82 96 98.0 05/04/17 03:37 99 05/04/17 00:00 96 05/04/17 00:00 96.4 98 18 154/89 97 96.4 Height (Feet): 5 Height (Inches): 4.00 Weight (Pounds): 149 HEENT: anicteric Respiratory/Chest: normal breath sounds Cardiovascular: regular rhythm Abdomen: non distended Microbiology Date/Time Source Procedure Growth Status 05/02/17 07:30 Stool Clostridium difficile Toxin Assay - Final Complete 05/02/17 15:47 Urine,Clean Catch Urine Culture - Final Klebsiella Pneumoniae Complete Laboratory Tests Test 05/04/17 08:10 White Blood Count 11.3 K/UL (4.8-10.8) H Red Blood Count 4.59 M/UL (4.20-5.40) Hemoglobin 14.1 G/DL (12.0-16.0) Hematocrit 39.2 % (37.0-47.0) Mean Corpuscular Volume 85 FL (80-99) Mean Corpuscular Hemoglobin 30.7 PG (27.0-31.0) Mean Corpuscular Hemoglobin Concent 36.0 G/DL (32.0-36.0) Red Cell Distribution Width 11.3 % (11.6-14.8) L Platelet Count 370 K/UL (150-450) Mean Platelet Volume 5.9 FL (6.5-10.1) L Neutrophils (%) (Auto) 81.4 % (45.0-75.0) H Lymphocytes (%) (Auto) 12.9 % (20.0-45.0) L Monocytes (%) (Auto) 5.3 % (1.0-10.0) Eosinophils (%) (Auto) 0.0 % (0.0-3.0) Basophils (%) (Auto) 0.4 % (0.0-2.0) Sodium Level 131 MMOL/L (136-145) L Potassium Level 2.4 MMOL/L (3.5-5.1) *L Chloride Level 100 MMOL/L (98-107) Carbon Dioxide Level 20 MMOL/L (21-32) L Anion Gap 15 mmol/L (5-15) Blood Urea Nitrogen 10 mg/dL (7-18) Creatinine 0.5 MG/DL (0.55-1.30) L Estimat Glomerular Filtration Rate > 60 mL/min (>60) Glucose Level 194 MG/DL (74-106) H Calcium Level 9.7 MG/DL (8.5-10.1) Current Medications Medications (Trade) Dose Ordered Sig/Ramana Route PRN Reason Start Time Stop Time Status Last Admin Dose Admin Clonidine HCl (Catapres Tab) 0.1 mg Q6H PRN ORAL SBP>160 05/02/17 12:30 06/01/17 12:29 05/04/17 16:56 Dextrose (Dextrose 50%) STAT PRN IV Hypoglycemia 05/02/17 13:00 06/01/17 12:59 Heparin Sodium (Porcine) (Heparin 5000 units/ml) 5,000 units BID SUBQ 05/02/17 09:00 06/01/17 08:59 05/04/17 18:21 Insulin Aspart (NovoLOG) BEFORE MEALS AND HS SUBQ 05/02/17 16:30 06/01/17 16:29 05/04/17 20:39 Insulin Aspart (NovoLOG) 8 units NOVOTIAC SUBQ 05/03/17 11:50 06/02/17 11:49 05/04/17 17:06 Insulin Detemir (Levemir) 20 units BID SUBQ 05/03/17 09:00 06/02/17 08:59 05/04/17 18:22 Levofloxacin 150 ml @ 100 mls/hr Q24H IVPB 05/02/17 16:00 05/09/17 15:59 05/04/17 16:55 Lisinopril (Zestril) 10 mg DAILY ORAL 05/02/17 12:30 06/01/17 12:29 05/04/17 08:52 Loperamide HCl (Imodium) 2 mg QID PRN ORAL Diarrhea 05/02/17 02:45 06/01/17 02:44 05/02/17 05:25 Metronidazole 100 ml @ 100 mls/hr Q8HR IVPB 05/02/17 22:00 05/09/17 21:59 05/04/17 13:49 Morphine Sulfate (Morphine Sulfate) 2 mg Q4H PRN IVP For Pain 05/01/17 23:15 05/08/17 23:14 05/04/17 10:41 Ondansetron HCl (Zofran) 4 mg Q4HR PRN IVP Nausea & Vomiting 05/02/17 11:30 06/01/17 11:29 05/04/17 17:44 Pantoprazole (Protonix) 40 mg EVERY 12 HOURS IVP 05/02/17 21:00 06/01/17 20:59 05/04/17 20:36 Prochlorperazine (Compazine) 10 mg Q4H PRN IVP Nausea & Vomiting 05/02/17 11:30 06/01/17 11:29 05/03/17 03:13 Sodium Chloride 1,000 ml @ 100 mls/hr Q10H IV 05/02/17 15:45 06/01/17 15:44 05/04/17 08:57 Zolpidem Tartrate (Ambien) 5 mg HSPRN PRN ORAL Insomnia 05/04/17 18:15 05/11/17 18:14 JACKIE SOLIMAN M.D. May 04, 2017 21:38
--- NOTE | 2017-05-04 23:21 | Consultation ---
REGINALD CARDOZA May 04, 2017 23:21
--- NOTE | 2017-05-04 23:54 | Consultation ---
REGINALD CARDZOA May 04, 2017 23:54
[2017-05-05] VITALS (7 sets, daily range): BP systolic 130–168; BP diastolic 70–100
[2017-05-05] MEDS: NovoLOG Insulin Flexpen SUBQ SCH ×7 (06:48→20:30)
[2017-05-05 08:27] LABS: BASOPHILS % (AUTO) 0.6 % (0.0-2.0); EOSINOPHILS % (AUTO) 0.2 % (0.0-3.0); HEMATOCRIT 36.7 % (37.0-47.0); HEMOGLOBIN 13.3 G/DL (12.0-16.0); LYMPHOCYTES % (AUTO) 23.7 % (20.0-45.0); MEAN CORPUSCULAR VOLUME 85 FL (80-99); NEUTROPHILS % (AUTO) 71.5 % (45.0-75.0); PLATELET COUNT 333 K/UL (150-450); RED CELL DISTRIBUTION WIDTH 11.4 % (11.6-14.8); WHITE BLOOD COUNT 7.6 K/UL (4.8-10.8)
[2017-05-05 08:39] LABS: ANION GAP 15 mmol/L (5-15); BLOOD UREA NITROGEN 9 mg/dL (7-18); CALCIUM 9.4 MG/DL (8.5-10.1); CARBON DIOXIDE 20 MMOL/L (21-32); CHLORIDE 100 MMOL/L (98-107); CREATININE 0.5 MG/DL (0.55-1.30); SODIUM 135 MMOL/L (136-145)
[2017-05-05] MEDS: Pantoprazole Inj IVP SCH ×2 (08:47→20:29)
[2017-05-05] MEDS: Lisinopril 10mg tab ORAL SCH (08:47)
[2017-05-05] MEDS: Heparin 5000 units/ml inj SUBQ SCH ×2 (08:48→17:16)
[2017-05-05] MEDS: Levemir Flexpen SUBQ SCH ×2 (08:49→17:16)
[2017-05-05 09:09] LABS: POTASSIUM 2.3 MMOL/L (3.5-5.1)
--- NOTE | 2017-05-05 09:35 | Infectious Diseases Prog Note ---
Assessment/Plan Assessment/Plan ASSESSMENT: The patient is a 56-year-old female with: Nausea, vomiting. Leukocytosis improving Rule out bacteremia. C. difficile colitis : Neg Urine Cx: EColi ( asymptomatic ) Cannabinoid hyperemesis syndrome / Gastroparesis. Diabetes. History of urinary tract infection PLAN: will continue the patient on Levaquin and Flagyl d# 4 / 5 Monitor CBC Monitor BMP. Monitor blood Cx Monitor chest x-ray. Subjective Allergies: Coded Allergies: NO KNOWN ALLERGIES (Verified Allergy, Unknown, 05/01/17) Subjective comfortable , no N.V Objective Vital Signs Last 24 Hour Vital Signs Date Time Temp Pulse Resp B/P (MAP) Pulse Ox O2 Delivery O2 Flow Rate FiO2 05/05/17 08:47 141/98 05/05/17 08:00 98.1 118 20 141/98 98 Room Air 98.1 05/05/17 04:00 98.1 96 20 160/95 97 Room Air 98.1 05/05/17 04:00 95 05/05/17 00:00 90 05/05/17 00:00 97.9 100 20 139/94 98 Room Air 97.9 05/04/17 20:00 106 05/04/17 20:00 98.1 102 20 153/93 100 Room Air 98.1 05/04/17 16:56 168/111 05/04/17 16:00 98.1 88 20 168/111 97 Room Air 98.1 05/04/17 15:09 133 05/04/17 12:03 104 Height (Feet): 5 Height (Inches): 4.00 Weight (Pounds): 149 HEENT: anicteric Respiratory/Chest: no accessory muscle use Cardiovascular: regular rhythm Abdomen: no organomegaly Microbiology Date/Time Source Procedure Growth Status 05/02/17 15:47 Urine,Clean Catch Urine Culture - Final Klebsiella Pneumoniae Complete Laboratory Tests Test 05/05/17 07:00 White Blood Count 7.6 K/UL (4.8-10.8) Red Blood Count 4.30 M/UL (4.20-5.40) Hemoglobin 13.3 G/DL (12.0-16.0) Hematocrit 36.7 % (37.0-47.0) L Mean Corpuscular Volume 85 FL (80-99) Mean Corpuscular Hemoglobin 30.9 PG (27.0-31.0) Mean Corpuscular Hemoglobin Concent 36.1 G/DL (32.0-36.0) H Red Cell Distribution Width 11.4 % (11.6-14.8) L Platelet Count 333 K/UL (150-450) Mean Platelet Volume 6.1 FL (6.5-10.1) L Neutrophils (%) (Auto) 71.5 % (45.0-75.0) Lymphocytes (%) (Auto) 23.7 % (20.0-45.0) Monocytes (%) (Auto) 4.0 % (1.0-10.0) Eosinophils (%) (Auto) 0.2 % (0.0-3.0) Basophils (%) (Auto) 0.6 % (0.0-2.0) Sodium Level 135 MMOL/L (136-145) L Potassium Level 2.3 MMOL/L (3.5-5.1) *L Chloride Level 100 MMOL/L (98-107) Carbon Dioxide Level 20 MMOL/L (21-32) L Anion Gap 15 mmol/L (5-15) Blood Urea Nitrogen 9 mg/dL (7-18) Creatinine 0.5 MG/DL (0.55-1.30) L Estimat Glomerular Filtration Rate > 60 mL/min (>60) Glucose Level 233 MG/DL (74-106) H Calcium Level 9.4 MG/DL (8.5-10.1) Current Medications Medications (Trade) Dose Ordered Sig/Ramana Route PRN Reason Start Time Stop Time Status Last Admin Dose Admin Clonidine HCl (Catapres Tab) 0.1 mg Q6H PRN ORAL SBP>160 05/02/17 12:30 06/01/17 12:29 05/04/17 16:56 Dextrose (Dextrose 50%) STAT PRN IV Hypoglycemia 05/02/17 13:00 06/01/17 12:59 Heparin Sodium (Porcine) (Heparin 5000 units/ml) 5,000 units BID SUBQ 05/02/17 09:00 06/01/17 08:59 05/05/17 08:48 Insulin Aspart (NovoLOG) BEFORE MEALS AND HS SUBQ 05/02/17 16:30 06/01/17 16:29 05/05/17 06:48 Insulin Aspart (NovoLOG) 8 units NOVOTIAC SUBQ 05/03/17 11:50 06/02/17 11:49 05/05/17 06:48 Insulin Detemir (Levemir) 20 units BID SUBQ 05/03/17 09:00 06/02/17 08:59 05/05/17 08:49 Levofloxacin 150 ml @ 100 mls/hr Q24H IVPB 05/02/17 16:00 05/09/17 15:59 05/04/17 16:55 Lisinopril (Zestril) 10 mg DAILY ORAL 05/02/17 12:30 06/01/17 12:29 05/05/17 08:47 Loperamide HCl (Imodium) 2 mg QID PRN ORAL Diarrhea 05/02/17 02:45 06/01/17 02:44 05/02/17 05:25 Metronidazole 100 ml @ 100 mls/hr Q8HR IVPB 05/02/17 22:00 05/09/17 21:59 05/05/17 06:44 Morphine Sulfate (Morphine Sulfate) 2 mg Q4H PRN IVP For Pain 05/01/17 23:15 05/08/17 23:14 05/04/17 10:41 Ondansetron HCl (Zofran) 4 mg Q4HR PRN IVP Nausea & Vomiting 05/02/17 11:30 06/01/17 11:29 05/05/17 03:58 Pantoprazole (Protonix) 40 mg EVERY 12 HOURS IVP 05/02/17 21:00 06/01/17 20:59 05/05/17 08:47 Prochlorperazine (Compazine) 10 mg Q4H PRN IVP Nausea & Vomiting 05/02/17 11:30 06/01/17 11:29 05/03/17 03:13 Sodium Chloride 1,000 ml @ 100 mls/hr Q10H IV 05/02/17 15:45 06/01/17 15:44 05/05/17 02:54 Zolpidem Tartrate (Ambien) 5 mg HSPRN PRN ORAL Insomnia 05/04/17 18:15 05/11/17 18:14 05/04/17 22:59 JACKIE SOLIMAN M.D. May 05, 2017 09:35
[2017-05-05] MEDS: NS w/KCl 40mEq 1,000 ML IV SCH (14:09)
--- NOTE | 2017-05-05 14:45 | General Progress Note ---
Assessment/Plan Problem List: (1) Abdominal pain ICD Codes: R10.9 - Unspecified abdominal pain SNOMED: 02162154 (2) Gastroparesis ICD Codes: K31.84 - Gastroparesis SNOMED: 924563249 (3) Cannabinoid hyperemesis syndrome ICD Codes: F12.988 - Cannabis use, unspecified with other cannabis-induced disorder SNOMED: 331556296, 029103964 (4) Leukocytosis ICD Codes: D72.829 - Elevated white blood cell count, unspecified SNOMED: 527901593, 904820552 (5) Pyelonephritis ICD Codes: N12 - Tubulo-interstitial nephritis, not specified as acute or chronic SNOMED: 79346101 (6) Vomiting ICD Codes: R11.10 - Vomiting, unspecified SNOMED: 515115037 (7) Gram-negative bacteremia ICD Codes: R78.81 - Bacteremia SNOMED: 408195883051 (8) ACS (acute coronary syndrome) ICD Codes: I24.9 - Acute ischemic heart disease, unspecified SNOMED: 764058500 Status: unchanged Assessment/Plan ot pt diet o2 pulm tx cbc bmp am dc plan Subjective Constitutional: Reports: weakness Allergies: Coded Allergies: NO KNOWN ALLERGIES (Verified Allergy, Unknown, 05/01/17) All Systems: reviewed and negative except above Subjective o2nc sleepy c/o poor swallow Objective Last 24 Hour Vital Signs Date Time Temp Pulse Resp B/P (MAP) Pulse Ox O2 Delivery O2 Flow Rate FiO2 05/05/17 08:47 141/98 05/05/17 08:00 116 05/05/17 08:00 98.1 118 20 141/98 98 Room Air 98.1 05/05/17 04:00 98.1 96 20 160/95 97 Room Air 98.1 05/05/17 04:00 95 05/05/17 00:00 90 05/05/17 00:00 97.9 100 20 139/94 98 Room Air 97.9 05/04/17 20:00 106 05/04/17 20:00 98.1 102 20 153/93 100 Room Air 98.1 05/04/17 16:56 168/111 05/04/17 16:00 98.1 88 20 168/111 97 Room Air 98.1 05/04/17 15:09 133 Intake and Output 05/04/17 05/05/17 19:00 07:00 Intake Total 1900 ml 437 ml Balance 1900 ml 437 ml Intake Oral 600 ml IV Total 1300 ml 437 ml # Voids 3 6 Laboratory Tests 05/05/17 07:00: White Blood Count 7.6, Red Blood Count 4.30, Hemoglobin 13.3, Hematocrit 36.7L, Mean Corpuscular Volume 85, Mean Corpuscular Hemoglobin 30.9, Mean Corpuscular Hemoglobin Concent 36.1H, Red Cell Distribution Width 11.4L, Platelet Count 333 , Mean Platelet Volume 6.1L, Neutrophils (%) (Auto) 71.5, Lymphocytes (%) (Auto ) 23.7, Monocytes (%) (Auto) 4.0, Eosinophils (%) (Auto) 0.2, Basophils (%) ( Auto) 0.6, Sodium Level 135L, Potassium Level 2.3*L, Chloride Level 100, Carbon Dioxide Level 20L, Anion Gap 15, Blood Urea Nitrogen 9, Creatinine 0.5L, Estimat Glomerular Filtration Rate > 60, Glucose Level 233H, Calcium Level 9.4, Magnesium Level 1.9 Height (Feet): 5 Height (Inches): 4.00 Weight (Pounds): 149 General Appearance: lethargic EENT: normal ENT inspection Neck: normal alignment Cardiovascular: normal peripheral pulses, normal rate, regular rhythm Respiratory/Chest: chest wall non-tender, lungs clear, normal breath sounds Abdomen: normal bowel sounds, non tender, soft Extremities: normal inspection Edema: no edema noted Arm (L), no edema noted Arm (R), no edema noted Leg (L), no edema noted Leg (R), no edema noted Pedal (L), no edema noted Pedal (R), no edema noted Generalized Neurologic: responsive, motor weakness Skin: normal pigmentation, warm/dry SHANTI HAWKINS May 05, 2017 14:45
--- NOTE | 2017-05-05 15:37 | GI Progress Note ---
Assessment/Plan Problems: (1) DM (diabetes mellitus) ICD Codes: E11.9 - Type 2 diabetes mellitus without complications SNOMED: 66901000 (2) Vomiting ICD Codes: R11.10 - Vomiting, unspecified SNOMED: 625096124 (3) Gastroparesis ICD Codes: K31.84 - Gastroparesis SNOMED: 165649016 (4) Cannabinoid hyperemesis syndrome ICD Codes: F12.988 - Cannabis use, unspecified with other cannabis-induced disorder SNOMED: 932825129, 324881714 (5) Abdominal pain ICD Codes: R10.9 - Unspecified abdominal pain SNOMED: 60521966 Status: stable, progressing Status Narrative Discussed with Dr. Disla. Assessment/Plan utox positive for MJ neg ct ivf zofran prn, reglan for persistent vomiting adv diet as tolerated fu labs Subjective Gastrointestinal/Abdominal: Reports: nausea - improving Objective Last 24 Hour Vital Signs Date Time Temp Pulse Resp B/P (MAP) Pulse Ox O2 Delivery O2 Flow Rate FiO2 05/05/17 08:47 141/98 05/05/17 08:00 116 05/05/17 08:00 98.1 118 20 141/98 98 Room Air 98.1 05/05/17 04:00 98.1 96 20 160/95 97 Room Air 98.1 05/05/17 04:00 95 05/05/17 00:00 90 05/05/17 00:00 97.9 100 20 139/94 98 Room Air 97.9 05/04/17 20:00 106 05/04/17 20:00 98.1 102 20 153/93 100 Room Air 98.1 05/04/17 16:56 168/111 05/04/17 16:00 98.1 88 20 168/111 97 Room Air 98.1 Intake and Output 05/04/17 05/05/17 19:00 07:00 Intake Total 1900 ml 437 ml Balance 1900 ml 437 ml Intake Oral 600 ml IV Total 1300 ml 437 ml # Voids 3 6 Laboratory Tests Test 05/05/17 07:00 White Blood Count 7.6 K/UL (4.8-10.8) Red Blood Count 4.30 M/UL (4.20-5.40) Hemoglobin 13.3 G/DL (12.0-16.0) Hematocrit 36.7 % (37.0-47.0) L Mean Corpuscular Volume 85 FL (80-99) Mean Corpuscular Hemoglobin 30.9 PG (27.0-31.0) Mean Corpuscular Hemoglobin Concent 36.1 G/DL (32.0-36.0) H Red Cell Distribution Width 11.4 % (11.6-14.8) L Platelet Count 333 K/UL (150-450) Mean Platelet Volume 6.1 FL (6.5-10.1) L Neutrophils (%) (Auto) 71.5 % (45.0-75.0) Lymphocytes (%) (Auto) 23.7 % (20.0-45.0) Monocytes (%) (Auto) 4.0 % (1.0-10.0) Eosinophils (%) (Auto) 0.2 % (0.0-3.0) Basophils (%) (Auto) 0.6 % (0.0-2.0) Sodium Level 135 MMOL/L (136-145) L Potassium Level 2.3 MMOL/L (3.5-5.1) *L Chloride Level 100 MMOL/L (98-107) Carbon Dioxide Level 20 MMOL/L (21-32) L Anion Gap 15 mmol/L (5-15) Blood Urea Nitrogen 9 mg/dL (7-18) Creatinine 0.5 MG/DL (0.55-1.30) L Estimat Glomerular Filtration Rate > 60 mL/min (>60) Glucose Level 233 MG/DL (74-106) H Calcium Level 9.4 MG/DL (8.5-10.1) Magnesium Level 1.9 MG/DL (1.8-2.4) Height (Feet): 5 Height (Inches): 4.00 Weight (Pounds): 149 General Appearance: no apparent distress, alert, overweight Cardiovascular: normal rate Respiratory/Chest: normal breath sounds Abdominal Exam: normal bowel sounds, non tender, soft Extremities: normal range of motion Jeanine Alejandro N.P. May 05, 2017 15:37
[2017-05-05] MEDS ORDERED: Morphine Sulfate 2mg/ml Inj IVP PRN (17:00)
--- NOTE | 2017-05-05 19:14 | Cardiology Progress Note ---
Assessment/Plan Assessment/Plan 1. Sinus tachycardia, this is due to hypovolemia due to hyperglycemia, continue hydration. 2. Atypical/non-cardiac chest pain. 3. DM 4. HTN Subjective Subjective Sinus rhythm at 97. Objective Last 24 Hour Vital Signs Date Time Temp Pulse Resp B/P (MAP) Pulse Ox O2 Delivery O2 Flow Rate FiO2 05/05/17 16:00 98.1 97 18 165/100 99 Room Air 98.1 05/05/17 12:00 98.2 105 20 165/98 97 Room Air 98.2 05/05/17 12:00 99 05/05/17 08:47 141/98 05/05/17 08:00 116 05/05/17 08:00 98.1 118 20 141/98 98 Room Air 98.1 05/05/17 04:00 98.1 96 20 160/95 97 Room Air 98.1 05/05/17 04:00 95 05/05/17 00:00 90 05/05/17 00:00 97.9 100 20 139/94 98 Room Air 97.9 05/04/17 20:00 106 05/04/17 20:00 98.1 102 20 153/93 100 Room Air 98.1 Intake and Output 05/04/17 05/05/17 19:00 07:00 Intake Total 1900 ml 437 ml Balance 1900 ml 437 ml Intake Oral 600 ml IV Total 1300 ml 437 ml # Voids 3 6 Laboratory Tests Test 05/05/17 07:00 White Blood Count 7.6 K/UL (4.8-10.8) Red Blood Count 4.30 M/UL (4.20-5.40) Hemoglobin 13.3 G/DL (12.0-16.0) Hematocrit 36.7 % (37.0-47.0) L Mean Corpuscular Volume 85 FL (80-99) Mean Corpuscular Hemoglobin 30.9 PG (27.0-31.0) Mean Corpuscular Hemoglobin Concent 36.1 G/DL (32.0-36.0) H Red Cell Distribution Width 11.4 % (11.6-14.8) L Platelet Count 333 K/UL (150-450) Mean Platelet Volume 6.1 FL (6.5-10.1) L Neutrophils (%) (Auto) 71.5 % (45.0-75.0) Lymphocytes (%) (Auto) 23.7 % (20.0-45.0) Monocytes (%) (Auto) 4.0 % (1.0-10.0) Eosinophils (%) (Auto) 0.2 % (0.0-3.0) Basophils (%) (Auto) 0.6 % (0.0-2.0) Sodium Level 135 MMOL/L (136-145) L Potassium Level 2.3 MMOL/L (3.5-5.1) *L Chloride Level 100 MMOL/L (98-107) Carbon Dioxide Level 20 MMOL/L (21-32) L Anion Gap 15 mmol/L (5-15) Blood Urea Nitrogen 9 mg/dL (7-18) Creatinine 0.5 MG/DL (0.55-1.30) L Estimat Glomerular Filtration Rate > 60 mL/min (>60) Glucose Level 233 MG/DL (74-106) H Calcium Level 9.4 MG/DL (8.5-10.1) Magnesium Level 1.9 MG/DL (1.8-2.4) Objective HEENT: Atraumatic and normocephalic. Anicteric. Pupils equal, round, and reactive to light and accommodation. Extraocular muscles intact. NECK: JVP less than 5 cm. CVS: Normal S1 and S2. Regular rate and rhythm. Tachycardic. No murmurs, gallops, or rubs. PMI is at fourth intercostal space at the midclavicular line. LUNGS: Clear to auscultation bilaterally. ABDOMEN: Soft, nontender, and nondistended. No hepatosplenomegaly. Positive bowel sounds. EXTREMITIES: No evidence of edema, clubbing, or cyanosis. REGINALD CARDOZA May 05, 2017 19:14
[2017-05-06] VITALS (8 sets, daily range): BP systolic 127–164; BP diastolic 83–104
[2017-05-06] MEDS ORDERED: Zolpidem 5mg tab ORAL PRN (00:46)
[2017-05-06] MEDS: NS w/KCl 40mEq 1,000 ML IV SCH ×4 (00:53→14:37)
[2017-05-06] MEDS ORDERED: Morphine Sulfate 2mg/ml Inj IVP PRN (01:00)
[2017-05-06] MEDS: NovoLOG Insulin Flexpen SUBQ SCH ×6 (06:02→18:02)
[2017-05-06 07:31] LABS: BASOPHILS % (AUTO) 0.8 % (0.0-2.0); EOSINOPHILS % (AUTO) 0.7 % (0.0-3.0); HEMATOCRIT 31.9 % (37.0-47.0); HEMOGLOBIN 11.5 G/DL (12.0-16.0); LYMPHOCYTES % (AUTO) 32.1 % (20.0-45.0); MEAN CORPUSCULAR VOLUME 85 FL (80-99); MONOCYTES % (AUTO) 7.6 % (1.0-10.0); NEUTROPHILS % (AUTO) 58.7 % (45.0-75.0); PLATELET COUNT 307 K/UL (150-450); RED BLOOD COUNT 3.74 M/UL (4.20-5.40); RED CELL DISTRIBUTION WIDTH 11.3 % (11.6-14.8)
--- NOTE | 2017-05-06 08:02 | General Progress Note ---
Assessment/Plan Problem List: (1) Abdominal pain ICD Codes: R10.9 - Unspecified abdominal pain SNOMED: 79241967 (2) Gastroparesis ICD Codes: K31.84 - Gastroparesis SNOMED: 429069847 (3) Cannabinoid hyperemesis syndrome ICD Codes: F12.988 - Cannabis use, unspecified with other cannabis-induced disorder SNOMED: 758317746, 623699694 (4) Leukocytosis ICD Codes: D72.829 - Elevated white blood cell count, unspecified SNOMED: 871824471, 004433940 (5) Pyelonephritis ICD Codes: N12 - Tubulo-interstitial nephritis, not specified as acute or chronic SNOMED: 89334008 (6) Vomiting ICD Codes: R11.10 - Vomiting, unspecified SNOMED: 848511338 (7) Gram-negative bacteremia ICD Codes: R78.81 - Bacteremia SNOMED: 076481798382 (8) ACS (acute coronary syndrome) ICD Codes: I24.9 - Acute ischemic heart disease, unspecified SNOMED: 127100220 Status: unchanged Assessment/Plan ot pt diet o2 pulm tx cbc bmp am dc plan Subjective Constitutional: Reports: weakness Allergies: Coded Allergies: NO KNOWN ALLERGIES (Verified Allergy, Unknown, 05/01/17) All Systems: reviewed and negative except above Subjective eating w sl nausea Objective Last 24 Hour Vital Signs Date Time Temp Pulse Resp B/P (MAP) Pulse Ox O2 Delivery O2 Flow Rate FiO2 05/06/17 05:24 127/83 05/06/17 04:37 97.2 96 26 164/101 100 97.2 05/06/17 04:03 164/101 05/06/17 00:30 98.1 86 18 152/88 98 98.1 05/05/17 23:56 98.1 95 20 130/70 98 Room Air 98.1 05/05/17 20:29 168/99 05/05/17 20:00 99.5 99 18 168/99 99 99.5 05/05/17 20:00 99.5 99 18 168/99 99 Room Air 99.5 05/05/17 20:00 103 05/05/17 16:00 98.1 97 18 165/100 99 Room Air 98.1 05/05/17 12:00 98.2 105 20 165/98 97 Room Air 98.2 05/05/17 12:00 99 05/05/17 08:47 141/98 Intake and Output 05/05/17 05/06/17 19:00 07:00 Intake Total 1252 ml 1090 ml Balance 1252 ml 1090 ml Intake Oral 552 ml 240 ml IV Total 700 ml 850 ml # Voids 3 2 Laboratory Tests 05/06/17 06:00: White Blood Count 7.0, Red Blood Count 3.74L, Hemoglobin 11.5L, Hematocrit 31.9L , Mean Corpuscular Volume 85, Mean Corpuscular Hemoglobin 30.8, Mean Corpuscular Hemoglobin Concent 36.2H, Red Cell Distribution Width 11.3L, Platelet Count 307, Mean Platelet Volume 6.0L, Neutrophils (%) (Auto) 58.7, Lymphocytes (%) (Auto) 32.1, Monocytes (%) (Auto) 7.6, Eosinophils (%) (Auto) 0.7, Basophils (%) (Auto) 0.8, Sodium Level [Pending], Potassium Level [Pending] , Chloride Level [Pending], Carbon Dioxide Level [Pending], Blood Urea Nitrogen [Pending], Creatinine [Pending], Estimat Glomerular Filtration Rate [Pending], Glucose Level [Pending], Calcium Level [Pending] Height (Feet): 5 Height (Inches): 4.00 Weight (Pounds): 149 General Appearance: alert EENT: normal ENT inspection Neck: normal alignment Cardiovascular: normal peripheral pulses, normal rate, regular rhythm Respiratory/Chest: chest wall non-tender, lungs clear, normal breath sounds Abdomen: normal bowel sounds, non tender, soft Extremities: normal inspection Edema: no edema noted Arm (L), no edema noted Arm (R), no edema noted Leg (L), no edema noted Leg (R), no edema noted Pedal (L), no edema noted Pedal (R), no edema noted Generalized Neurologic: responsive, motor weakness Skin: normal pigmentation, warm/dry SHANTI HAWKINS May 06, 2017 08:02
[2017-05-06 08:48] LABS: ANION GAP 6 mmol/L (5-15); BLOOD UREA NITROGEN 12 mg/dL (7-18); CALCIUM 9.2 MG/DL (8.5-10.1); CARBON DIOXIDE 24 MMOL/L (21-32); CHLORIDE 100 MMOL/L (98-107); CREATININE 0.5 MG/DL (0.55-1.30); POTASSIUM 3.5 MMOL/L (3.5-5.1); SODIUM 130 MMOL/L (136-145)
[2017-05-06] MEDS ORDERED: Loperamide 2mg cap ORAL PRN (09:00)
[2017-05-06] MEDS ORDERED: Pantoprazole Inj IVP SCH (09:00)
[2017-05-06] MEDS ORDERED: Lisinopril 10mg tab ORAL SCH (09:00)
[2017-05-06] MEDS: Heparin 5000 units/ml inj SUBQ SCH ×2 (10:19→18:00)
[2017-05-06] MEDS: Levemir Flexpen SUBQ SCH ×2 (10:20→18:17)
--- NOTE | 2017-05-06 12:01 | Infectious Diseases Prog Note ---
Assessment/Plan Assessment/Plan ASSESSMENT: The patient is a 56-year-old female with: Nausea, vomiting. Leukocytosis SP C. difficile colitis : Neg Urine Cx: EColi ( asymptomatic ) Cannabinoid hyperemesis syndrome / Gastroparesis. Diabetes. History of urinary tract infection PLAN: DC Levaquin and Flagyl d# 5 / 5 Monitor CBC Monitor BMP. Monitor blood Cx Monitor chest x-ray. Subjective Allergies: Coded Allergies: NO KNOWN ALLERGIES (Verified Allergy, Unknown, 05/01/17) Subjective comfortable Objective Vital Signs Last 24 Hour Vital Signs Date Time Temp Pulse Resp B/P (MAP) Pulse Ox O2 Delivery O2 Flow Rate FiO2 05/06/17 10:18 144/84 05/06/17 08:00 96.8 80 22 144/84 98 96.8 05/06/17 05:24 127/83 05/06/17 04:37 97.2 96 26 164/101 100 97.2 05/06/17 04:03 164/101 05/06/17 00:30 98.1 86 18 152/88 98 98.1 05/05/17 23:56 98.1 95 20 130/70 98 Room Air 98.1 05/05/17 20:29 168/99 05/05/17 20:00 99.5 99 18 168/99 99 99.5 05/05/17 20:00 99.5 99 18 168/99 99 Room Air 99.5 05/05/17 20:00 103 05/05/17 16:00 98.1 97 18 165/100 99 Room Air 98.1 05/05/17 12:00 98.2 105 20 165/98 97 Room Air 98.2 05/05/17 12:00 99 Height (Feet): 5 Height (Inches): 4.00 Weight (Pounds): 149 HEENT: anicteric Respiratory/Chest: no accessory muscle use Cardiovascular: normal rate Abdomen: no organomegaly Microbiology Date/Time Source Procedure Growth Status 05/03/17 12:15 Blood Blood Culture - Preliminary NO GROWTH AFTER 48 HOURS Resulted 05/03/17 12:00 Blood Blood Culture - Preliminary NO GROWTH AFTER 48 HOURS Resulted Laboratory Tests Test 05/06/17 06:00 White Blood Count 7.0 K/UL (4.8-10.8) Red Blood Count 3.74 M/UL (4.20-5.40) L Hemoglobin 11.5 G/DL (12.0-16.0) L Hematocrit 31.9 % (37.0-47.0) L Mean Corpuscular Volume 85 FL (80-99) Mean Corpuscular Hemoglobin 30.8 PG (27.0-31.0) Mean Corpuscular Hemoglobin Concent 36.2 G/DL (32.0-36.0) H Red Cell Distribution Width 11.3 % (11.6-14.8) L Platelet Count 307 K/UL (150-450) Mean Platelet Volume 6.0 FL (6.5-10.1) L Neutrophils (%) (Auto) 58.7 % (45.0-75.0) Lymphocytes (%) (Auto) 32.1 % (20.0-45.0) Monocytes (%) (Auto) 7.6 % (1.0-10.0) Eosinophils (%) (Auto) 0.7 % (0.0-3.0) Basophils (%) (Auto) 0.8 % (0.0-2.0) Sodium Level 130 MMOL/L (136-145) L Potassium Level 3.5 MMOL/L (3.5-5.1) # Chloride Level 100 MMOL/L (98-107) Carbon Dioxide Level 24 MMOL/L (21-32) Anion Gap 6 mmol/L (5-15) Blood Urea Nitrogen 12 mg/dL (7-18) Creatinine 0.5 MG/DL (0.55-1.30) L Estimat Glomerular Filtration Rate > 60 mL/min (>60) Glucose Level 239 MG/DL (74-106) H Calcium Level 9.2 MG/DL (8.5-10.1) Current Medications Medications (Trade) Dose Ordered Sig/Ramana Route PRN Reason Start Time Stop Time Status Last Admin Dose Admin Acetaminophen (Tylenol) 650 mg Q6H PRN ORAL Mild Pain/Temp > 100.5 05/06/17 00:37 06/04/17 00:36 Clonidine HCl (Catapres Tab) 0.1 mg Q6H PRN ORAL SBP>160 05/06/17 02:30 06/01/17 02:29 05/06/17 04:03 Dextrose (Dextrose 50%) STAT PRN IV Hypoglycemia 05/06/17 00:38 06/01/17 00:37 Heparin Sodium (Porcine) (Heparin 5000 units/ml) 5,000 units BID SUBQ 05/06/17 09:00 06/01/17 08:59 05/06/17 10:19 Ibuprofen (Motrin) 600 mg TIDPRN PRN ORAL Pain Scale (3-5) 05/06/17 00:39 06/04/17 00:38 Insulin Aspart (NovoLOG) BEFORE MEALS AND HS SUBQ 05/06/17 06:30 06/01/17 16:29 05/06/17 06:03 Insulin Aspart (NovoLOG) 8 units NOVOTIAC SUBQ 05/06/17 06:30 06/02/17 11:49 05/06/17 06:02 Insulin Detemir (Levemir) 20 units BID SUBQ 05/06/17 09:00 06/02/17 08:59 05/06/17 10:20 Levofloxacin 150 ml @ 100 mls/hr Q24H IVPB 05/06/17 16:00 05/06/17 23:59 Lisinopril (Zestril) 10 mg DAILY ORAL 05/06/17 09:00 06/01/17 12:29 05/06/17 10:18 Loperamide HCl (Imodium) 2 mg QID PRN ORAL Diarrhea 05/06/17 09:00 06/01/17 02:44 Magnesium Citrate (Citrate Of Magnesia) 300 ml ONCE ONCE ORAL 05/06/17 14:00 05/06/17 14:01 Metronidazole 100 ml @ 100 mls/hr Q8HR IVPB 05/06/17 06:00 05/06/17 23:59 05/06/17 04:03 Morphine Sulfate (Morphine Sulfate) 2 mg Q4H PRN IVP For Pain Scale >7 05/06/17 01:00 05/12/17 16:59 Ondansetron HCl (Zofran) 4 mg Q4H PRN IVP Nausea & Vomiting 05/06/17 01:00 06/05/17 00:59 05/06/17 04:03 Pantoprazole (Protonix) 40 mg EVERY 12 HOURS IVP 05/06/17 09:00 06/01/17 20:59 05/06/17 10:22 Prochlorperazine (Compazine) 10 mg Q4H PRN IVP Nausea & Vomiting 05/06/17 00:45 06/01/17 00:44 Sodium Chloride 1,000 ml @ 100 mls/hr Q10H IV 05/06/17 01:00 06/04/17 00:59 05/06/17 00:53 Zolpidem Tartrate (Ambien) 5 mg HSPRN PRN ORAL Insomnia 05/06/17 00:46 05/11/17 00:45 JACKIE SOLIMAN M.D. May 06, 2017 12:01
--- NOTE | 2017-05-06 13:19 | GI Progress Note ---
Assessment/Plan Problems: (1) DM (diabetes mellitus) ICD Codes: E11.9 - Type 2 diabetes mellitus without complications SNOMED: 72476281 (2) Vomiting ICD Codes: R11.10 - Vomiting, unspecified SNOMED: 918788737 (3) Gastroparesis ICD Codes: K31.84 - Gastroparesis SNOMED: 991926740 (4) Cannabinoid hyperemesis syndrome ICD Codes: F12.988 - Cannabis use, unspecified with other cannabis-induced disorder SNOMED: 378339856, 004245615 (5) Abdominal pain ICD Codes: R10.9 - Unspecified abdominal pain SNOMED: 75894245 Status: stable Status Narrative Discussed with Dr. Disla. Assessment/Plan utox positive for MJ neg ct ivf zofran prn, reglan for persistent vomiting adv diet as tolerated fu labs dc planning Subjective Gastrointestinal/Abdominal: Reports: no symptoms Subjective feels good Objective Last 24 Hour Vital Signs Date Time Temp Pulse Resp B/P (MAP) Pulse Ox O2 Delivery O2 Flow Rate FiO2 05/06/17 10:18 144/84 05/06/17 08:00 96.8 80 22 144/84 98 96.8 05/06/17 05:24 127/83 05/06/17 04:37 97.2 96 26 164/101 100 97.2 05/06/17 04:03 164/101 05/06/17 00:30 98.1 86 18 152/88 98 98.1 05/05/17 23:56 98.1 95 20 130/70 98 Room Air 98.1 05/05/17 20:29 168/99 05/05/17 20:00 99.5 99 18 168/99 99 99.5 05/05/17 20:00 99.5 99 18 168/99 99 Room Air 99.5 05/05/17 20:00 103 05/05/17 16:00 98.1 97 18 165/100 99 Room Air 98.1 Intake and Output 05/05/17 05/06/17 19:00 07:00 Intake Total 1252 ml 1090 ml Balance 1252 ml 1090 ml Intake Oral 552 ml 240 ml IV Total 700 ml 850 ml # Voids 3 2 Laboratory Tests Test 05/06/17 06:00 White Blood Count 7.0 K/UL (4.8-10.8) Red Blood Count 3.74 M/UL (4.20-5.40) L Hemoglobin 11.5 G/DL (12.0-16.0) L Hematocrit 31.9 % (37.0-47.0) L Mean Corpuscular Volume 85 FL (80-99) Mean Corpuscular Hemoglobin 30.8 PG (27.0-31.0) Mean Corpuscular Hemoglobin Concent 36.2 G/DL (32.0-36.0) H Red Cell Distribution Width 11.3 % (11.6-14.8) L Platelet Count 307 K/UL (150-450) Mean Platelet Volume 6.0 FL (6.5-10.1) L Neutrophils (%) (Auto) 58.7 % (45.0-75.0) Lymphocytes (%) (Auto) 32.1 % (20.0-45.0) Monocytes (%) (Auto) 7.6 % (1.0-10.0) Eosinophils (%) (Auto) 0.7 % (0.0-3.0) Basophils (%) (Auto) 0.8 % (0.0-2.0) Sodium Level 130 MMOL/L (136-145) L Potassium Level 3.5 MMOL/L (3.5-5.1) # Chloride Level 100 MMOL/L (98-107) Carbon Dioxide Level 24 MMOL/L (21-32) Anion Gap 6 mmol/L (5-15) Blood Urea Nitrogen 12 mg/dL (7-18) Creatinine 0.5 MG/DL (0.55-1.30) L Estimat Glomerular Filtration Rate > 60 mL/min (>60) Glucose Level 239 MG/DL (74-106) H Calcium Level 9.2 MG/DL (8.5-10.1) Height (Feet): 5 Height (Inches): 4.00 Weight (Pounds): 149 General Appearance: WD/WN, no apparent distress, alert Cardiovascular: normal rate Respiratory/Chest: normal breath sounds, no respiratory distress Abdominal Exam: normal bowel sounds, non tender, soft Extremities: normal range of motion, non-tender Jeanine Alejandro N.PEulogio May 06, 2017 13:19
[2017-05-06] MEDS ORDERED: Magnesium Citrate Liq Btl ORAL ONE (14:00)
--- NOTE | 2017-05-06 18:07 | Cardiology Progress Note ---
Assessment/Plan Assessment/Plan 1. Sinus tachycardia, this is due to hypovolemia due to hyperglycemia, continue hydration. 2. Atypical/non-cardiac chest pain. 3. DM 4. HTN Subjective Subjective Sinus rhythm at 97. Objective Last 24 Hour Vital Signs Date Time Temp Pulse Resp B/P (MAP) Pulse Ox O2 Delivery O2 Flow Rate FiO2 05/06/17 17:18 98.2 88 18 157/104 100 Room Air 98.2 05/06/17 17:15 98.2 88 19 157/104 100 98.2 05/06/17 16:00 98.2 88 19 157/104 100 98.2 05/06/17 12:00 97.8 78 19 136/85 98 97.8 05/06/17 10:18 144/84 05/06/17 08:00 96.8 80 22 144/84 98 96.8 05/06/17 05:24 127/83 05/06/17 04:37 97.2 96 26 164/101 100 97.2 05/06/17 04:03 164/101 05/06/17 00:30 98.1 86 18 152/88 98 98.1 05/05/17 23:56 98.1 95 20 130/70 98 Room Air 98.1 05/05/17 20:29 168/99 05/05/17 20:00 99.5 99 18 168/99 99 99.5 05/05/17 20:00 99.5 99 18 168/99 99 Room Air 99.5 05/05/17 20:00 103 Intake and Output 05/05/17 05/06/17 19:00 07:00 Intake Total 1252 ml 1090 ml Balance 1252 ml 1090 ml Intake Oral 552 ml 240 ml IV Total 700 ml 850 ml # Voids 3 2 Laboratory Tests Test 05/06/17 06:00 White Blood Count 7.0 K/UL (4.8-10.8) Red Blood Count 3.74 M/UL (4.20-5.40) L Hemoglobin 11.5 G/DL (12.0-16.0) L Hematocrit 31.9 % (37.0-47.0) L Mean Corpuscular Volume 85 FL (80-99) Mean Corpuscular Hemoglobin 30.8 PG (27.0-31.0) Mean Corpuscular Hemoglobin Concent 36.2 G/DL (32.0-36.0) H Red Cell Distribution Width 11.3 % (11.6-14.8) L Platelet Count 307 K/UL (150-450) Mean Platelet Volume 6.0 FL (6.5-10.1) L Neutrophils (%) (Auto) 58.7 % (45.0-75.0) Lymphocytes (%) (Auto) 32.1 % (20.0-45.0) Monocytes (%) (Auto) 7.6 % (1.0-10.0) Eosinophils (%) (Auto) 0.7 % (0.0-3.0) Basophils (%) (Auto) 0.8 % (0.0-2.0) Sodium Level 130 MMOL/L (136-145) L Potassium Level 3.5 MMOL/L (3.5-5.1) # Chloride Level 100 MMOL/L (98-107) Carbon Dioxide Level 24 MMOL/L (21-32) Anion Gap 6 mmol/L (5-15) Blood Urea Nitrogen 12 mg/dL (7-18) Creatinine 0.5 MG/DL (0.55-1.30) L Estimat Glomerular Filtration Rate > 60 mL/min (>60) Glucose Level 239 MG/DL (74-106) H Calcium Level 9.2 MG/DL (8.5-10.1) Objective HEENT: Atraumatic and normocephalic. Anicteric. Pupils equal, round, and reactive to light and accommodation. Extraocular muscles intact. NECK: JVP less than 5 cm. CVS: Normal S1 and S2. Regular rate and rhythm. Tachycardic. No murmurs, gallops, or rubs. PMI is at fourth intercostal space at the midclavicular line. LUNGS: Clear to auscultation bilaterally. ABDOMEN: Soft, nontender, and nondistended. No hepatosplenomegaly. Positive bowel sounds. EXTREMITIES: No evidence of edema, clubbing, or cyanosis. REGINALD CARDOZA May 06, 2017 18:07
[2017-05-06] MEDS ORDERED: Tubing IV Secondary IV ONE (19:44)
--- NOTE | 2017-05-07 14:10 | Discharge Summary ---
Discharge Summary Hospital Course Date of Admission May 01, 2017 at 16:47 Date of Discharge May 06, 2017 at 19:45 Admitting Diagnosis acute coronary syndrome/ vomiting HPI Sana Mccabe is a 56 year old female who was admitted on May 01, 2017 at 16: 47 for Acute Coronary Sydrome, Vomiting Hospital Course [id number] Discharge Discharge Disposition Patient was discharged to Home (01) Discharge Diagnoses: Telma Thorpe NP May 07, 2017 14:10
--- NOTE | 2017-05-08 03:30 | Discharge Summary 2 SIG ---
DATE OF ADMISSION: 05/01/2017 DATE OF DISCHARGE: 05/06/2017 CONSULTANTS: 1. Raoul Carlson M.D. 2. Kavon Disla M.D. 3. Meir Correa M.D. 4. Xiomara Larios M.D. 5. Bryce Murphy M.D. BRIEF HOSPITAL COURSE: The patient is a 56-year-old female, who lives at home, presented to ED for complaints of chest pain for one day, which is described to be dull, located on the left substernal area with no radiation. No loss of consciousness. No dizziness. She also had abdominal pain as well as nausea and vomiting. She has medical history significant for diabetes mellitus and hypertension. On evaluation at ED, blood work showed leukocytosis. WBC was 14.3. Sodium was 132, chloride was 94, and glucose was 329. She had a CT of abdomen, pelvis, and chest that showed normal appearance of the thoracic and abdominal aorta with no dissection or no aneurysm. No evidence of pulmonary embolus. There was no acute finding within the chest, abdomen, or pelvis identified. She had a positive acetone level, anion gap of 18, and CO2 was 20. She was given IV hydration with NS 120 per hour. The patient had hyponatremia and had 3+ proteinuria. She was started on Levaquin and Flagyl. She had elevated heart rate, which was assessed to be secondary to hypovolemia due to hyperglycemia. A 12-lead EKG did not show any ischemic features. She was given insulin sliding scale with Levemir 20 units b.i.d. and NovoLog 8 units before meals t.i.d. Urine toxicology was positive for marijuana. She was given symptomatic treatment for nausea and was eventually started on p.o. diet. The patient has a possible gastroparesis secondary to diabetes mellitus. C. difficile was negative. Urine culture showed growth of Klebsiella pneumoniae, however, was asymptomatic. Troponins have been negative x4. Nausea resolved. Antibiotics were discontinued. She was eventually discharged home. FINAL DIAGNOSES: 1. Abdominal pain. 2. Gastroparesis. 3. Cannabinoid hyperemesis syndrome. 4. Leukocytosis. 5. Pyelonephritis. 6. Vomiting. 7. Diabetes mellitus. 8. Atypical/noncardiac chest pain. 9. Sinus tachycardia. DISPOSITION: The patient was discharged home. DISCHARGE MEDICATIONS: Refer to medication list. DISCHARGE INSTRUCTIONS: Follow up with PCP in a week. Clemente Barrow D.O. I have been assigned to dictate discharge summary on this account and I was not involved in the patient's management. Telma Thorpe N.P. DR: MONICA JOB#: [id number] CC: PARUL
--- NOTE | 2017-05-08 12:30 | Consultation ---
DATE OF CONSULTATION: 05/06/2017 HEMATOLOGY/ONCOLOGY CONSULTATION CONSULTING PHYSICIAN: Momo Camargo M.D. REQUESTING PHYSICIAN: Clemente Barrow D.O. REASON FOR CONSULTATION: Evaluation of anemia. IDENTIFICATION DATA: Dear Dr. Clemente Barrow, The patient is a pleasant 56-year-old female, whom I have seen before in the past with past medical history significant for as well as tachycardia, at this time presents to the hospital with acute chest pain, nausea, and vomiting, history of diabetes mellitus for which she takes metformin, has not taken her medications due to nausea and vomiting. Also significant metabolic acidosis. Her sugar was elevated. The patient potentially to be discharged today. Hematology Service was consulted for further evaluation. In addition, the patient was noted to be anemic. PAST MEDICAL HISTORY: C. difficile colitis, . PAST SURGICAL HISTORY: None noted. ALLERGIES: No known drug allergies. SOCIAL HISTORY: No history of alcohol, tobacco abuse, or illicit drug use. FAMILY HISTORY: Diabetes mellitus. REVIEW OF SYSTEMS: CONSTITUTIONAL: No fevers, chills, or night sweats. SKIN: No rashes, bumps, or itching. HEENT: No headache, hearing or vision changes. BREASTS: No lumps, pain, or discharge. PULMONARY: No cough, sputum, or shortness of breath. GASTROINTESTINAL: No nausea, vomiting, or diarrhea. GENITOURINARY: No dysuria, frequency, or urgency. MUSCULOSKELETAL: No joint swelling, muscle pain, or trauma. PHYSICAL EXAMINATION: VITAL SIGNS: Reviewed. GENERAL: No distress. PULMONARY: Decreased breath sounds. CARDIOVASCULAR: Regular rate. No S3 or S4. ABDOMEN: Soft, nontender, and nondistended. EXTREMITIES: No cyanosis, swelling, or edema. LABORATORY DATA: WBC 10,000 and hemoglobin 11.6. ASSESSMENT AND PLAN: 1. Anemia secondary to underlying chronic disease. Continue to closely monitor. Stable for discharge. Very mild at this point. 2. Leukocytosis probably secondary to infection versus nausea and vomiting. Continue to monitor. A1c goal less than 7. 3. Hypertension. Systolic blood pressure goal less than 140. Continue to closely monitor. 4. Sinus tachycardia due to with dehydration. I appreciate the consultation. Momo Hanna Camargo DR: DOM JOB#: [id number] CC:
--- NOTE | 2017-05-13 16:46 | Cardiology Report ---
APPROVED REPORT EKG Measurement Heart [id number] ND 146P58 [id number] Sinus tachycardia Possible Left atrial enlargement Borderline ECG
--- NOTE | 2017-05-13 16:54 | Cardiology Report ---
APPROVED REPORT EKG Measurement Heart [id number] FL 140P45 [id number] Sinus tachycardia Cannot rule out Anterior infarct, age undetermined Abnormal ECG
== END 2017-05-06 19:45 | disposition home or self-care (01) | DRG 74 ==
LOC: EMR 16:28 → 2E 16:47 → EDBEDREQ 18:55 → 2E 23:18 → 4W 05-06 00:01
DX: E11.43 Type 2 diabetes mellitus with diabetic autonomic (poly)neuropathy (principal); E87.2 Acidosis; E87.1 Hypo-osmolality and hyponatremia; E11.65 Type 2 diabetes mellitus with hyperglycemia; N12 Tubulo-interstitial nephritis, not specified as acute or chronic; J66.2 Cannabinosis; K31.84 Gastroparesis; E11.40 Type 2 diabetes mellitus with diabetic neuropathy, unspecified; E78.5 Hyperlipidemia, unspecified; I10 Essential (primary) hypertension; E86.1 Hypovolemia; R00.0 Tachycardia, unspecified; R07.89 Other chest pain; D63.8 Anemia in other chronic diseases classified elsewhere; Z79.4 Long term (current) use of insulin
CPT/HCPCS: 36415; 36600; 71045; 71275; 74174; 80048; 80053; 80307; 81003; 82009; 82550; 82553; 82803; 82962; 83036; 83690; 83735; 83880; 84484; 85007; 85025; 85610; 85730; 87040; 87086; 87181; 87324; 93005; 99285; J1815; J2405; J8499; S5561

== ENCOUNTER 2017-06-09 16:02 | Inpatient (IN) | payer SELFPAY ==
[~2017-06-09] VITALS: Ht 162.6 cm; Wt 74.8 kg
[2017-06-09] MEDS ORDERED: Dicyclomine HCl 10mg/5ml oral soln ORAL ONE (16:25)
[2017-06-09] MEDS ORDERED: Haloperidol 5mg/ml Inj IM ONE (16:30)
--- NOTE | 2017-06-09 16:36 | Emergency Room Report ---
History of Present Illness General Chief Complaint: Abdominal Pain Source: Patient, Medical Record Present Illness HPI 56-year-old female comes to the ER for complaints of nausea and vomiting as well as diffuse crampy abdominal pain since this morning She reports she's had similar episodes in the past and thought it was due to high blood glucose she is not insulin-dependent, but she does take metformin and glipizide She denies headaches, chest pain, constipation or obstipation, and reports her last bowel movement was this morning She reports nonbloody, nonbilious vomiting multiple times today. She reports the pain in her abdomen is diffuse and crampy and severe. Does admit to smoking marijuana but denies drinking.she denies having major surgeries other than having a remote tonsillectomy. Allergies: Coded Allergies: NO KNOWN ALLERGIES (Verified Allergy, Unknown, 05/01/17) Patient History Past Medical History: see triage record Last Menstrual Period: menopause Reviewed Nursing Documentation: PMH: Agreed; PSxH: Agreed Nursing Documentation-PMH Past Medical History: No History, Except For Hx Cardiac Problems: No Hx Diabetes: Yes Hx Cancer: No Hx Gastrointestinal Problems: No Hx Neurological Problems: Yes - Neuropathy, Migraines Review of Systems All Other Systems: negative except mentioned in HPI Physical Exam Vital Signs Date Time Temp Pulse Resp B/P (MAP) Pulse Ox O2 Delivery O2 Flow Rate FiO2 06/09/17 16:05 97.8 84 18 201/99 99 Room Air 97.9 Sp02 EP Interpretation: reviewed, abnormal - hypertension, but O2 sat is normal General Appearance: no apparent distress, alert, non-toxic, mild distress - actively vomiting clear yellowish gastric material Head: normocephalic Eyes: bilateral eye normal inspection, bilateral eye PERRL, bilateral eye EOMI ENT: normal ENT inspection, hearing grossly normal, normal pharynx, no angioedema, normal voice, moist mucus membranes Neck: normal inspection, full range of motion, supple, supple/symm/no masses Respiratory: chest non-tender, lungs clear, normal breath sounds, chest symmetrical, palpation of chest normal Cardiovascular #1: normal peripheral pulses, regular rate, rhythm Cardiovascular #2: 2+ radial (R), 2+ radial (L) Gastrointestinal: normal inspection, non tender, soft, no mass, no guarding, no rebound Rectal: deferred Genitourinary: normal inspection, no CVA tenderness Musculoskeletal: back normal, gait/station normal, normal range of motion, non- tender, no calf tenderness Neurologic: alert, responsive, ice cream server III-XII nml as tested, motor strength/tone normal, sensory intact, speech normal Psychiatric: judgement/insight normal, memory normal, mood/affect normal, no suicidal/homicidal ideation Skin: normal color, no rash, warm/dry, normal turgor Lymphatic: no adenopathy Medical Decision Making Reaction to Intervention: Improved Diagnostic Impression: Primary Impression: Cannabinoid hyperemesis syndrome Additional Impression: DM (diabetes mellitus) ER Course Patient with presentation very consistent with cannabinoid hyperemesis syndrome versus possible gastroparesis. Abdominal exam is benign. She has no history of abdominal or pelvic surgeries, I do not suspect intra-abdominal infection, bowel obstruction, ovarian pathology, or any other acute pathology other than cannabinoid hyperemesis versus gastroparesis. Still with pain and htn, so will admit. Spoke with Dr. Barrow. Rhythm Strip Diag. Results Rhythm Strip Time: 16:35 EP Interpretation: yes Rate: 81 Rhythm: NSR, no PVC's, no ectopy Other X-Ray Diagnostic Results Other X-Ray Diagnostic Results : X-Ray ordered: abdomen # of Views/Limited Vs Complete: 3 View Indication: Pain EP Interpretation: Yes Interpretation: no dislocation, no soft tissue swelling, nonspecific bowel gas, no sbo Impression: No acute disease Electronically Signed by: Dotty Granados MD Reevaluation Time: 17:15 Last Vital Signs Date Time Temp Pulse Resp B/P (MAP) Pulse Ox O2 Delivery O2 Flow Rate FiO2 06/09/17 16:05 97.8 84 18 201/99 99 Room Air 97.9 Status: unchanged Disposition: ADMITTED INPATIENT Condition: Stable Signed Out To: DOTTY Loza M.D Jun 09, 2017 16:36
[2017-06-09 16:45] LABS: BASOPHILS % (AUTO) 0.5 % (0.0-2.0); EOSINOPHILS % (AUTO) 0.1 % (0.0-3.0); HEMATOCRIT 44.8 % (37.0-47.0); HEMOGLOBIN 15.8 G/DL (12.0-16.0); MEAN CORPUSCULAR VOLUME 89 FL (80-99); MONOCYTES % (AUTO) 2.5 % (1.0-10.0); NEUTROPHILS % (AUTO) 83.8 % (45.0-75.0); PLATELET COUNT 333 K/UL (150-450); RED BLOOD COUNT 5.05 M/UL (4.20-5.40); WHITE BLOOD COUNT 13.6 K/UL (4.8-10.8)
[2017-06-09 17:21] VITALS: BP 193/95
[2017-06-09] MEDS ORDERED: Labetalol 200mg tab ORAL ONE (18:00)
[2017-06-09 18:18] LABS: ANION GAP 22 mmol/L (5-15); BLOOD UREA NITROGEN 16 mg/dL (7-18); CALCIUM 10.4 MG/DL (8.5-10.1); CARBON DIOXIDE 15 MMOL/L (21-32); CHLORIDE 97 MMOL/L (98-107); CREATININE 0.8 MG/DL (0.55-1.30); POTASSIUM 3.6 MMOL/L (3.5-5.1); SODIUM 133 MMOL/L (136-145)
[2017-06-09 18:22] LABS: ALANINE AMINOTRANSFERASE 32 U/L (12-78); ALBUMIN 4.2 G/DL (3.4-5.0); ALKALINE PHOSPHATASE 77 U/L (46-116); ASPARTATE AMINO TRANSFERASE 19 U/L (15-37); BILIRUBIN,TOTAL 0.8 MG/DL (0.2-1.0)
[2017-06-09 18:57] VITALS: BP 209/88
[2017-06-09] MEDS ORDERED: Metoclopramide 10mg/2ml Inj IVP ONE (19:00)
[2017-06-09] MEDS ORDERED: DiphenhydrAMINE 50mg/ml Inj IVP ONE (19:00)
[2017-06-09] MEDS ORDERED: Morphine Sulfate 4mg/ml Inj IVP ONE (19:45)
[2017-06-09 20:01] VITALS: BP 169/74
[2017-06-09 22:02] VITALS: BP 140/98
[2017-06-09] MEDS: D5 1/2NS 1,000 ML IV SCH (22:09)
[2017-06-09] MEDS: Morphine Sulfate 4mg/ml Inj IVP PRN (23:26)
[2017-06-10] VITALS (7 sets, daily range): BP systolic 104–196; BP diastolic 66–123
[2017-06-10] MEDS: NovoLOG Insulin Flexpen SUBQ SCH ×5 (00:36→22:46)
[2017-06-10] MEDS: Morphine Sulfate 4mg/ml Inj IVP PRN (04:22)
[2017-06-10] MEDS: GlipiZIDE 10mg tab ORAL SCH ×2 (08:50→18:00)
[2017-06-10 09:01] LABS: BASOPHILS % (AUTO) 0.5 % (0.0-2.0); HEMATOCRIT 42.9 % (37.0-47.0); HEMOGLOBIN 15.1 G/DL (12.0-16.0); LYMPHOCYTES % (AUTO) 14.9 % (20.0-45.0); MEAN CORPUSCULAR VOLUME 88 FL (80-99); MONOCYTES % (AUTO) 6.2 % (1.0-10.0); NEUTROPHILS % (AUTO) 78.3 % (45.0-75.0); PLATELET COUNT 343 K/UL (150-450); RED BLOOD COUNT 4.85 M/UL (4.20-5.40); RED CELL DISTRIBUTION WIDTH 12.3 % (11.6-14.8); WHITE BLOOD COUNT 14.1 K/UL (4.8-10.8)
--- NOTE | 2017-06-10 09:41 | Diagnostic Imaging Report ---
Indication: Abdominal pain Technique: Continuous helical transaxial imaging of the abdomen and pelvis was obtained from the lung bases to the pubic symphysis during intravenous contrast administration. Coronal 2-D reformats were also obtained. Study obtained in a Siemens sensation [address] Automatic Exposure Control was utilized. Total Dose length Product (DLP): 733.[address] Dose Index Volume (CTDIvol): 13.01 mGy Comparison: None Findings: There is minimal posterior basal atelectasis. Liver appears slightly hypodense. Gallbladder, spleen, kidneys, pancreas appear unremarkable. No adrenal mass seen. Bowel gas pattern is nonspecific. Constipation in the central part of the uterus noted. Urinary bladder is unremarkable. Normal appendix noted. Hypertrophied facets noted in the lower lumbar spine. IMPRESSION: Mild fatty liver. Calculation in the central part of the uterus probably associated with the endometrium. This could be a small calcified submucosal fibroid. Normal appendix The CT scanner at [facility] is accredited by the [employer] and the scans are performed using dose optimization techniques as appropriate to a performed exam including Automatic Exposure control.
[2017-06-10 09:55] LABS: ANION GAP 17 mmol/L (5-15); BLOOD UREA NITROGEN 23 mg/dL (7-18); CALCIUM 10.1 MG/DL (8.5-10.1); CARBON DIOXIDE 19 MMOL/L (21-32); CHLORIDE 98 MMOL/L (98-107); POTASSIUM 3.5 MMOL/L (3.5-5.1); SODIUM 134 MMOL/L (136-145)
--- NOTE | 2017-06-10 10:32 | GI Initial Consult Note ---
History of Present Illness General Date patient seen: Jun 10, 2017 Time patient seen: 10:25 Reason for Hospitalization: Abdominal Pain Referring physician: SHANTI HAWKINS Reason for Consultation: N/V Present Illness HPI 56-year-old female comes to the ER for complaints of nausea and vomiting as well as diffuse crampy abdominal pain since this morning She reports she's had similar episodes in the past and thought it was due to high blood glucose she is not insulin-dependent, but she does take metformin and glipizide She denies headaches, chest pain, constipation or obstipation, and reports her last bowel movement was this morning She reports nonbloody, nonbilious vomiting multiple times today. She reports the pain in her abdomen is diffuse and crampy and severe. Does admit to smoking marijuana but denies drinking.she denies having major surgeries other than having a remote tonsillectomy. GI consulted for persistent vomiting. Pt seen, awake A&Ox4 NAD. States her DM medication has not been working. Denies any N/V at this time, c/o of hunger. Patient had similar episode here at [facility] approximately one month ago. No loss of consciousness. No dizziness. She had abdominal pain as well with some nausea and vomiting. Patient previous positive for marijuana. Presents today with hyperglycemia and leukocytosis. KUB negative. Unknown history of endoscopy/colonoscopy. Home Meds Active Scripts Acetaminophen With Codeine (T#3) (TYLENOL #3 TAB*) Y Tab, 1 TAB ORAL Q6H PRN for For Pain, #9 TAB Prov:Katherin White P.A. 04/04/17 Trimethoprim/Sulfamethoxazole 160/800* (BACTRIM DS TABLET*) 1 Each Tablet, 1 TAB ORAL TWICE A DAY for 14 Days, #28 TAB Prov:Katherin White P.A. 04/04/17 Trimethoprim/Sulfamethoxazole (Bactrim Ds Tablet) 1 Each Tablet, 1 TAB ORAL TWICE A DAY for 10 Days, TAB Prov:Donaldo Villegas MD 12/20/15 Levofloxacin* (LEVOFLOXACIN*) 750 Mg Tablet, 750 MG ORAL DAILY for 7 Days, #7 TAB Prov:HUONG PAIGE M.D. 12/16/15 Reported Medications Metformin Hcl* (METFORMIN HCL*) 850 Mg Tablet, 850 MG ORAL TID, TAB 04/04/17 Glipizide* (GLUCOTROL*) 10 Mg Tablet, 10 MG ORAL BID, #10 TAB 0 Refills 04/04/17 Gabapentin* (GABAPENTIN*) 300 Mg Capsule, 300 MG ORAL THREE TIMES A DAY, CAP 0 Refills 12/16/15 Glyburide/Metformin Hcl (GLYBURIDE-METFORMIN 5-500 MG) 1 Each Tablet, 1 EACH PO BID, TAB 12/16/15 Atorvastatin Calcium* (ATORVASTATIN CALCIUM*) 20 Mg Tablet, 10 MG ORAL BEDTIME, TAB 12/16/15 Med list reviewed/reconciled: Yes Allergies: Coded Allergies: NO KNOWN ALLERGIES (Verified Allergy, Unknown, 05/01/17) Patient History History Provided By: Patient, Medical Record PMH Narrative Past Medical History: see triage record Last Menstrual Period: menopause Reviewed Nursing Documentation: PMH: Agreed; PSxH: Agreed Nursing Documentation-PMH Past Medical History: No History, Except For Hx Cardiac Problems: No Hx Diabetes: Yes Hx Cancer: No Hx Gastrointestinal Problems: No Hx Neurological Problems: Yes - Neuropathy, Migraines Social History: Reports: drug use Review of Systems All Other Systems: negative except mentioned in HPI Physical Exam Vital Signs Date Time Temp Pulse Resp B/P (MAP) Pulse Ox O2 Delivery O2 Flow Rate FiO2 06/09/17 16:05 97.8 84 18 201/99 99 Room Air 97.9 Sp02 EP Interpretation: reviewed, normal Labs Laboratory Tests Test 06/09/17 16:30 06/09/17 17:55 06/10/17 08:35 White Blood Count 13.6 K/UL (4.8-10.8) H 14.1 K/UL (4.8-10.8) H Red Blood Count 5.05 M/UL (4.20-5.40) 4.85 M/UL (4.20-5.40) Hemoglobin 15.8 G/DL (12.0-16.0) 15.1 G/DL (12.0-16.0) Hematocrit 44.8 % (37.0-47.0) 42.9 % (37.0-47.0) Mean Corpuscular Volume 89 FL (80-99) 88 FL (80-99) Mean Corpuscular Hemoglobin 31.3 PG (27.0-31.0) H 31.1 PG (27.0-31.0) H Mean Corpuscular Hemoglobin Concent 35.3 G/DL (32.0-36.0) 35.1 G/DL (32.0-36.0) Red Cell Distribution Width 12.0 % (11.6-14.8) 12.3 % (11.6-14.8) Platelet Count 333 K/UL (150-450) 343 K/UL (150-450) Mean Platelet Volume 6.9 FL (6.5-10.1) 6.8 FL (6.5-10.1) Neutrophils (%) (Auto) 83.8 % (45.0-75.0) H 78.3 % (45.0-75.0) H Lymphocytes (%) (Auto) 13.0 % (20.0-45.0) L 14.9 % (20.0-45.0) L Monocytes (%) (Auto) 2.5 % (1.0-10.0) 6.2 % (1.0-10.0) Eosinophils (%) (Auto) 0.1 % (0.0-3.0) 0.0 % (0.0-3.0) Basophils (%) (Auto) 0.5 % (0.0-2.0) 0.5 % (0.0-2.0) Sodium Level 133 MMOL/L (136-145) L 134 MMOL/L (136-145) L Potassium Level 3.6 MMOL/L (3.5-5.1) 3.5 MMOL/L (3.5-5.1) Chloride Level 97 MMOL/L (98-107) L 98 MMOL/L (98-107) Carbon Dioxide Level 15 MMOL/L (21-32) L 19 MMOL/L (21-32) L Anion Gap 22 mmol/L (5-15) H 17 mmol/L (5-15) H Blood Urea Nitrogen 16 mg/dL (7-18) 23 mg/dL (7-18) H Creatinine 0.8 MG/DL (0.55-1.30) 1.0 MG/DL (0.55-1.30) Estimat Glomerular Filtration Rate > 60 mL/min (>60) 57.6 mL/min (>60) Glucose Level 366 MG/DL (74-106) H 355 MG/DL (74-106) H Calcium Level 10.4 MG/DL (8.5-10.1) H 10.1 MG/DL (8.5-10.1) Total Bilirubin 0.8 MG/DL (0.2-1.0) Aspartate Amino Transf (AST/SGOT) 19 U/L (15-37) Alanine Aminotransferase (ALT/SGPT) 32 U/L (12-78) Alkaline Phosphatase 77 U/L (46-116) Total Protein 8.2 G/DL (6.4-8.2) Albumin 4.2 G/DL (3.4-5.0) Globulin 4.0 g/dL Albumin/Globulin Ratio 1.0 (1.0-2.7) Lipase 108 U/L (73-393) General Appearance: well appearing, no apparent distress, alert Head: normocephalic EENT: PERRL/EOMI, normal ENT inspection Neck: supple Respiratory: normal breath sounds, no respiratory distress Cardiovascular: normal rate Gastrointestinal: normal inspection, non tender, soft, normal bowel sounds, non -distended Rectal: deferred Genitourinary: no CVA tenderness Musculoskeletal: normal inspection, back normal Neurologic: normal inspection, alert, oriented x3, responsive Psychiatric: normal inspection, judgement/insight normal, memory normal Skin: normal inspection, normal color, no rash, warm/dry, palpation normal, well hydrated Lymphatic: normal inspection, no adenopathy Current Medications Current Medications Medications (Trade) Dose Ordered Sig/Ramana Route PRN Reason Start Time Stop Time Status Last Admin Dose Admin Atorvastatin Calcium (Lipitor) 10 mg BEDTIME ORAL 06/10/17 21:00 07/10/17 20:59 Clonidine HCl (Catapres Tab) 0.1 mg EVERY 6 HOURS PRN ORAL For High Blood Pressure 06/10/17 04:45 07/09/17 22:29 Dextrose (Dextrose 50%) 25 ml STAT PRN IV Hypoglycemia 06/09/17 22:00 07/09/17 21:59 Dextrose (Dextrose 50%) 50 ml STAT PRN IV Hypoglycemia 06/09/17 22:00 07/09/17 21:59 Dextrose/Sodium Chloride 1,000 ml @ 60 mls/hr [id number] IV 06/09/17 21:45 07/09/17 21:44 06/09/17 22:09 Gabapentin (Neurontin) 300 mg THREE TIMES A DAY ORAL 06/10/17 09:00 07/10/17 08:59 06/10/17 08:49 Glipizide (Glucotrol) 10 mg BIDPC ORAL 06/10/17 09:00 07/10/17 08:59 Insulin Aspart (NovoLOG) Q6HR SUBQ 06/10/17 00:00 07/10/17 00:00 06/10/17 05:16 Metformin HCl (Glucophage) 850 mg TID ORAL 06/10/17 09:00 07/10/17 08:59 Morphine Sulfate (Morphine Sulfate) 2 mg Q4H PRN IVP pain 06/09/17 22:15 06/16/17 22:14 06/10/17 04:22 Ondansetron HCl (Zofran) 4 mg Q4HR PRN IVP Nausea & Vomiting 06/09/17 21:45 07/09/17 21:44 06/10/17 05:16 GI: Plan Problems: (1) Cannabinoid hyperemesis syndrome (2) DM (diabetes mellitus) (3) Persistent vomiting Plan CT AP, see full report >> fatty liver. send for utox r/o possible cyclic vomiting DM management zofran prn, reglan for persistent vomiting >> will consider endoscopy if uncontrolled adv diet as tolerated ppi fu labs Discussed with Dr. Disla. Thank you for this patient referral, we will follow. Jeanine Alejandro N.P. Jun 10, 2017 10:32
[2017-06-10 10:33] LABS: APPEARANCE,URINE CLEAR; BILIRUBIN, URINE NEGATIVE (NEGATIVE); COLOR,URINE PALE YELLOW; GLUCOSE, URINE (UA) 4+ (NEGATIVE); KETONES,URINE 3+ (NEGATIVE); LEUKOCYTE ESTERASE ,URINE NEGATIVE (NEGATIVE); NITRITE,URINE NEGATIVE (NEGATIVE); PH,URINE 5 (4.5-8.0); PROTEIN,URINE 2+ (NEGATIVE); UROBILINOGEN,URINE NORMAL MG/DL (0.0-1.0)
--- NOTE | 2017-06-10 11:05 | Diagnostic Imaging Report ---
Indication: Abdominal pain Comparison: None Single view of the abdomen obtained Findings: There is a relative absence of bowel gas within the abdomen. Small amount of air noted in the stomach. Evaluation is there are bilateral limited right the bowel. Bones are unremarkable. IMPRESSION: Limited study. No acute findings appreciated. Patient subsequently had CT of the abdomen and pelvis. Please refer to the CT report
[2017-06-10] MEDS: D5 1/2NS 1,000 ML IV SCH (15:12)
--- NOTE | 2017-06-10 20:13 | Cardiology Progress Note ---
Assessment/Plan Assessment/Plan The patient is seen and examined, full consult note will be dictated. Objective Last 24 Hour Vital Signs Date Time Temp Pulse Resp B/P (MAP) Pulse Ox O2 Delivery O2 Flow Rate FiO2 06/10/17 16:00 97.5 115 20 104/66 97 Room Air 97.5 06/10/17 15:11 144/94 06/10/17 13:17 108 168/92 06/10/17 12:05 196/123 06/10/17 12:00 98.2 114 20 196/123 99 Room Air 98.2 06/10/17 08:00 97.3 120 20 115/72 98 Room Air 97.3 06/10/17 04:00 97 Room Air 06/10/17 04:00 98.3 120 19 119/76 97 98.3 06/10/17 00:12 97.6 108 20 163/111 98 97.6 06/10/17 00:00 98 Room Air 06/09/17 22:02 98.1 119 19 140/98 98 98.1 06/09/17 22:00 99 Room Air 06/09/17 22:00 98.0 111 24 169/74 99 Room Air 98.0 Intake and Output 06/09/17 06/10/17 19:00 07:00 Intake Total 480 ml Output Total 250 ml Balance -250 ml 480 ml IV Total 480 ml Output Urine Total 250 ml # Voids 3 # Bowel Movements 1 Laboratory Tests Test 06/10/17 08:35 06/10/17 10:15 White Blood Count 14.1 K/UL (4.8-10.8) H Red Blood Count 4.85 M/UL (4.20-5.40) Hemoglobin 15.1 G/DL (12.0-16.0) Hematocrit 42.9 % (37.0-47.0) Mean Corpuscular Volume 88 FL (80-99) Mean Corpuscular Hemoglobin 31.1 PG (27.0-31.0) H Mean Corpuscular Hemoglobin Concent 35.1 G/DL (32.0-36.0) Red Cell Distribution Width 12.3 % (11.6-14.8) Platelet Count 343 K/UL (150-450) Mean Platelet Volume 6.8 FL (6.5-10.1) Neutrophils (%) (Auto) 78.3 % (45.0-75.0) H Lymphocytes (%) (Auto) 14.9 % (20.0-45.0) L Monocytes (%) (Auto) 6.2 % (1.0-10.0) Eosinophils (%) (Auto) 0.0 % (0.0-3.0) Basophils (%) (Auto) 0.5 % (0.0-2.0) Sodium Level 134 MMOL/L (136-145) L Potassium Level 3.5 MMOL/L (3.5-5.1) Chloride Level 98 MMOL/L (98-107) Carbon Dioxide Level 19 MMOL/L (21-32) L Anion Gap 17 mmol/L (5-15) H Blood Urea Nitrogen 23 mg/dL (7-18) H Creatinine 1.0 MG/DL (0.55-1.30) Estimat Glomerular Filtration Rate 57.6 mL/min (>60) Glucose Level 355 MG/DL (74-106) H Calcium Level 10.1 MG/DL (8.5-10.1) Urine Color Pale yellow Urine Appearance Clear Urine pH 5 (4.5-8.0) Urine Specific [place] 1.015 (1.005-1.035) Urine Protein 2+ (NEGATIVE) H Urine Glucose (UA) 4+ (NEGATIVE) H Urine Ketones 3+ (NEGATIVE) H Urine Occult Blood 1+ (NEGATIVE) H Urine Nitrite Negative (NEGATIVE) Urine Bilirubin Negative (NEGATIVE) Urine Urobilinogen Normal MG/DL (0.0-1.0) Urine Leukocyte Esterase Negative (NEGATIVE) Urine RBC 0-2 /HPF (0 - 2) Urine WBC 0-2 /HPF (0 - 2) Urine Squamous Epithelial Cells Few /LPF (NONE/OCC) Urine Bacteria Few /HPF (NONE) Urine Opiates Screen Negative (NEGATIVE) Urine Barbiturates Screen Negative (NEGATIVE) Phencyclidine (PCP) Screen Negative (NEGATIVE) Urine Amphetamines Screen Negative (NEGATIVE) Urine Benzodiazepines Screen Negative (NEGATIVE) Urine Cocaine Screen Negative (NEGATIVE) Urine Marijuana (THC) Screen Positive (NEGATIVE) REGINALD LOPEZ Jun 10, 2017 20:13
[2017-06-10] MEDS: Lisinopril 2.5mg tab ORAL SCH (22:45)
--- NOTE | 2017-06-10 23:30 | History and Physical Report ---
DATE OF ADMISSION: 06/09/2017 TIME: At 1 p.m. CONSULTANTS: 1. Kavon Disla M.D. 2. Raoul Carlson M.D. 3. Bryce Murphy M.D. CHIEF COMPLAINT: Persistent vomiting, hypertension, diabetes, and hyperglycemia. BRIEF HISTORY: The patient is a 56-year-old female, who lives at home, presents with two days of increased nausea and vomiting, diagnosed with above and hyperglycemia, and admitted to the medical floor for further treatment. Currently, slightly nauseous in bed. No complaint. PAST MEDICAL HISTORY: Hypertension, diabetes, and neuropathy. PAST SURGICAL HISTORY: None. MEDICATIONS: Protonix, Lipitor, Tylenol, Reglan, Neurontin, Glucotrol, Glucophage, and Catapres. ALLERGIES: Denies. SOCIAL HISTORY: No smoking. No alcohol. No intravenous drug use. FAMILY HISTORY: Noncontributory. REVIEW OF SYSTEMS: No chest pain. No shortness of breath. Slight nausea, vomiting. No diarrhea. PHYSICAL EXAMINATION: GENERAL: Slightly anxious in bed, oriented x3, in no acute distress. VITAL SIGNS: Show a temperature of 98 degrees, pulse 108, respirations 20, and blood pressure 160/92. CARDIOVASCULAR: No murmur. LUNGS: Distant and clear. ABDOMEN: Positive bowel sounds. Soft, slightly tender. No guarding. No rigidity. No rebound. EXTREMITIES: No cyanosis, clubbing, or edema. NEUROLOGIC: The patient moves all extremities slightly weak. LABORATORY DATA: Labs at this time show a white count 14, otherwise CBC is normal. BMP, sodium 134, BUN and creatinine 22/1.0 and glucose 355. Urinalysis, 3+ ketone, 1+ occult blood, 2+ protein, and 4+ glucose. Urine toxicology, positive marijuana. ASSESSMENT: 1. Hypertension. 2. Diabetes. 3. Hyperglycemia. 4. Persistent vomiting. 5. Neuropathy. PLAN: Blood pressure, blood sugar, and pain control. Dietary followup. Antiemetics p.r.n. OT/PT. Dietary evaluation. CBC and BMP in the morning. Discharge if cleared by team. We will continue to follow the patient. Clemente Barrow D.O. DR: JOSE JOB#: [id number] CC:
[2017-06-11] VITALS: BP 135/79
--- NOTE | 2017-06-11 02:45 | Consultation ---
DATE OF CONSULTATION: 06/10/2017 CARDIOLOGY CONSULTATION CONSULTING PHYSICIAN: Raoul Carlson M.D. REFERRING PHYSICIAN: Clemente Barrow D.O. REASON FOR CONSULTATION: Management of tachycardia. HISTORY OF PRESENT ILLNESS: The patient is a very unfortunate 56-year-old lady who presents to the hospital with complaints of nausea, vomiting, and abdominal pain since morning of June 09, 2017. The patient has history of diabetes mellitus and claims that she has been off metformin and glipizide for sometime. At the time of arrival to the hospital, the patient had a blood pressure of 201/99 mmHg, heart rate was 84. A Cardiology consultation was made at request of Dr. Barrow for management of hypertension and tachycardia. The patient was admitted to telemetry for further evaluation and management of possible diabetes ketoacidosis. PAST MEDICAL HISTORY: Diabetes mellitus, hypertension, history of neuropathy, history of migraine headaches. PAST SURGICAL HISTORY: None. MEDICATIONS: 1. Acetaminophen with codeine one tablet q.6 h. p.r.n. pain 2. Atorvastatin 10 mg p.o. at bedtime. 3. Gabapentin 300 mg p.o. three times a day. 4. Glucotrol 10 mg p.o. twice daily. 5. Glyburide/metformin 5/500 mg one tablet twice daily. 6. Levofloxacin once daily for 7 days. 7. Metformin 850 mg three times a day. 8. Bactrim DS one tablet twice daily. ALLERGIES: No known drug allergies. REVIEW OF SYSTEMS: A 12-system review done essentially negative except what mentioned in the history of present illness. FAMILY HISTORY: No premature coronary disease or arrhythmogenic in the first-degree relatives. PHYSICAL EXAMINATION: VITAL SIGNS: Blood pressure at time of arrival to the hospital was 201/99, respirations 18, pulse of 84, temperature 97.8 degree Fahrenheit, O2 saturation 99% on room air. GENERAL: The patient is a very unfortunate 56-year-old female, in no apparent respiratory distress. HEENT: Atraumatic and normocephalic. Anicteric. Pupils are equal, round, and reactive to light and accommodation. Extraocular muscles intact. NECK: JVP is less than 5 cm. No carotid bruit. Carotid upstrokes 2+ bilaterally. CARDIOVASCULAR: Normal S1 and S2. . Tachycardiac. No murmurs, gallops, or rubs. PMI is at fourth intercostal space in the midclavicular line. LUNGS: Clear to auscultation bilaterally. ABDOMEN: Soft, nontender, and nondistended. No hepatosplenomegaly. Positive bowel sounds. EXTREMITIES: No evidence of edema, clubbing, or cyanosis. LABORATORY FINDINGS: WBC 13.6, hemoglobin 15.8, hematocrit of 44.8, and platelet count 333. Sodium was 133, potassium is 3.6, chloride 117, bicarbonate 15, BUN of 16, creatinine 0.8, anion gap is 22, glucose is 366. Calcium is 10.4. Toxicology showed positive marijuana. Abdomen and pelvis mild fatty liver, small calcified submucosal fibroid, normal appendix. ASSESSMENT AND PLAN: The patient is a very unfortunate 56-year-old female seen in Cardiology consultation at request of Dr. Barrow. 1. Sinus tachycardia most likely due to osmosis diuresis due to the uncontrolled diabetes mellitus. The patient will benefit from normal saline at this time. No AV ni agents required at this point. 2. Accelerated hypertension. I would like to and start the patient on lisinopril 5 mg daily and the patient on clonidine as needed 0.1 mg q. 6 h. 3. Further therapeutic and diagnostic decision will be based on the patient's response to the above treatment. I would like to thank, Dr. Barrow, for the courtesy of this consultation. Raoul Carslon M.D. DR: [place]ena JOB#: [id number] CC:
[2017-06-11] MEDS: NovoLOG Insulin Flexpen SUBQ SCH ×4 (06:31→20:33)
[2017-06-11 06:32] LABS: BASOPHILS % (AUTO) 0.4 % (0.0-2.0); EOSINOPHILS % (AUTO) 0.4 % (0.0-3.0); HEMATOCRIT 43.8 % (37.0-47.0); HEMOGLOBIN 15.6 G/DL (12.0-16.0); LYMPHOCYTES % (AUTO) 12.4 % (20.0-45.0); MEAN CORPUSCULAR VOLUME 89 FL (80-99); MONOCYTES % (AUTO) 3.4 % (1.0-10.0); NEUTROPHILS % (AUTO) 83.4 % (45.0-75.0); PLATELET COUNT 323 K/UL (150-450); RED CELL DISTRIBUTION WIDTH 12.3 % (11.6-14.8); WHITE BLOOD COUNT 13.7 K/UL (4.8-10.8)
[2017-06-11] MEDS: D5 1/2NS 1,000 ML IV SCH (06:32)
[2017-06-11 07:07] LABS: ANION GAP 13 mmol/L (5-15); BLOOD UREA NITROGEN 20 mg/dL (7-18); CALCIUM 9.9 MG/DL (8.5-10.1); CARBON DIOXIDE 23 MMOL/L (21-32); CHLORIDE 95 MMOL/L (98-107); CREATININE 0.7 MG/DL (0.55-1.30); POTASSIUM 3.7 MMOL/L (3.5-5.1); SODIUM 131 MMOL/L (136-145)
[2017-06-11] MEDS: GlipiZIDE 10mg tab ORAL SCH ×2 (08:30→18:28)
[2017-06-11] MEDS: Lisinopril 2.5mg tab ORAL SCH ×2 (08:30→18:00)
[2017-06-11 08:34] VITALS: BP 168/92
--- NOTE | 2017-06-11 09:46 | GI Progress Note ---
Assessment/Plan Problems: (1) Persistent vomiting ICD Codes: R11.10 - Vomiting, unspecified SNOMED: 579063689 (2) Cannabinoid hyperemesis syndrome ICD Codes: F12.988 - Cannabis use, unspecified with other cannabis-induced disorder SNOMED: 016635709, 030673327 (3) DM (diabetes mellitus) ICD Codes: E11.9 - Type 2 diabetes mellitus without complications SNOMED: 95964672 Status: stable Status Narrative Discussed with Dr. Disla. Assessment/Plan CT AP, see full report >> fatty liver. utox >> positive for marijuana symptomatic treatment DM management zofran prn, reglan for persistent vomiting >> will consider endoscopy if uncontrolled adv diet as tolerated ppi fu labs Subjective Subjective ANTOINE had episode of emesis today Objective Last 24 Hour Vital Signs Date Time Temp Pulse Resp B/P (MAP) Pulse Ox O2 Delivery O2 Flow Rate FiO2 06/11/17 08:34 97.7 102 20 168/92 99 Room Air 97.7 06/11/17 08:30 168/92 06/11/17 02:46 98.6 06/11/17 00:00 98.6 95 18 135/79 98 Room Air 98.6 06/10/17 22:45 104/66 06/10/17 16:00 97.5 115 20 104/66 97 Room Air 97.5 06/10/17 15:11 144/94 06/10/17 13:17 108 168/92 06/10/17 12:05 196/123 06/10/17 12:00 98.2 114 20 196/123 99 Room Air 98.2 Intake and Output 06/10/17 06/11/17 19:00 07:00 Intake Total 140 ml Balance 140 ml Intake Oral 140 ml # Voids 4 Laboratory Tests Test 06/10/17 10:15 06/11/17 06:05 Urine Color Pale yellow Urine Appearance Clear Urine pH 5 (4.5-8.0) Urine Specific [place] 1.015 (1.005-1.035) Urine Protein 2+ (NEGATIVE) H Urine Glucose (UA) 4+ (NEGATIVE) H Urine Ketones 3+ (NEGATIVE) H Urine Occult Blood 1+ (NEGATIVE) H Urine Nitrite Negative (NEGATIVE) Urine Bilirubin Negative (NEGATIVE) Urine Urobilinogen Normal MG/DL (0.0-1.0) Urine Leukocyte Esterase Negative (NEGATIVE) Urine RBC 0-2 /HPF (0 - 2) Urine WBC 0-2 /HPF (0 - 2) Urine Squamous Epithelial Cells Few /LPF (NONE/OCC) Urine Bacteria Few /HPF (NONE) Urine Opiates Screen Negative (NEGATIVE) Urine Barbiturates Screen Negative (NEGATIVE) Phencyclidine (PCP) Screen Negative (NEGATIVE) Urine Amphetamines Screen Negative (NEGATIVE) Urine Benzodiazepines Screen Negative (NEGATIVE) Urine Cocaine Screen Negative (NEGATIVE) Urine Marijuana (THC) Screen Positive (NEGATIVE) H White Blood Count 13.7 K/UL (4.8-10.8) H Red Blood Count 4.90 M/UL (4.20-5.40) Hemoglobin 15.6 G/DL (12.0-16.0) Hematocrit 43.8 % (37.0-47.0) Mean Corpuscular Volume 89 FL (80-99) Mean Corpuscular Hemoglobin 31.7 PG (27.0-31.0) H Mean Corpuscular Hemoglobin Concent 35.5 G/DL (32.0-36.0) Red Cell Distribution Width 12.3 % (11.6-14.8) Platelet Count 323 K/UL (150-450) Mean Platelet Volume 6.6 FL (6.5-10.1) Neutrophils (%) (Auto) 83.4 % (45.0-75.0) H Lymphocytes (%) (Auto) 12.4 % (20.0-45.0) L Monocytes (%) (Auto) 3.4 % (1.0-10.0) Eosinophils (%) (Auto) 0.4 % (0.0-3.0) Basophils (%) (Auto) 0.4 % (0.0-2.0) Sodium Level 131 MMOL/L (136-145) L Potassium Level 3.7 MMOL/L (3.5-5.1) Chloride Level 95 MMOL/L (98-107) L Carbon Dioxide Level 23 MMOL/L (21-32) Anion Gap 13 mmol/L (5-15) Blood Urea Nitrogen 20 mg/dL (7-18) H Creatinine 0.7 MG/DL (0.55-1.30) Estimat Glomerular Filtration Rate > 60 mL/min (>60) Glucose Level 379 MG/DL (74-106) H Calcium Level 9.9 MG/DL (8.5-10.1) Height (Feet): 5 Height (Inches): 4.00 Weight (Pounds): 165 General Appearance: WD/WN, no apparent distress, alert Cardiovascular: normal rate Respiratory/Chest: normal breath sounds, no respiratory distress Abdominal Exam: normal bowel sounds, non tender, soft Extremities: normal range of motion, non-tender Jeanine Alejandro N.P. Jun 11, 2017 09:46
[2017-06-11] MEDS ORDERED: Norco 5mg/325mg tab ORAL PRN (10:00)
[2017-06-11] MEDS ORDERED: Morphine Sulfate 4mg/ml Inj IVP PRN (10:00)
[2017-06-11 12:00] VITALS: BP 128/86
[2017-06-11] MEDS ORDERED: dilTIAZem HCl CD 120mg cap ORAL ONE (13:15)
--- NOTE | 2017-06-11 14:35 | General Progress Note ---
Assessment/Plan Problem List: (1) HTN (hypertension) ICD Codes: I10 - Essential (primary) hypertension SNOMED: 30990590 (2) Diabetes ICD Codes: E11.9 - Type 2 diabetes mellitus without complications SNOMED: 36467567 (3) Neuropathy ICD Codes: G62.9 - Polyneuropathy, unspecified SNOMED: 171055031 (4) Leukocytosis ICD Codes: D72.829 - Elevated white blood cell count, unspecified SNOMED: 102551022, 124302655 (5) DM (diabetes mellitus) ICD Codes: E11.9 - Type 2 diabetes mellitus without complications SNOMED: 64831483 (6) Persistent vomiting ICD Codes: R11.10 - Vomiting, unspecified SNOMED: 808667704 Status: unchanged Assessment/Plan ot pt diet pain bs nausea control cbc bmp am id eval Subjective Constitutional: Reports: weakness Allergies: Coded Allergies: NO KNOWN ALLERGIES (Verified Allergy, Unknown, 05/01/17) All Systems: reviewed and negative except above Subjective sl nausea Objective Last 24 Hour Vital Signs Date Time Temp Pulse Resp B/P (MAP) Pulse Ox O2 Delivery O2 Flow Rate FiO2 06/11/17 13:14 116 137/99 06/11/17 12:51 163/95 06/11/17 12:00 98.8 116 19 128/86 97 Room Air 98.8 06/11/17 08:34 97.7 120 20 168/92 99 Room Air 97.7 06/11/17 08:30 168/92 06/11/17 02:46 98.6 06/11/17 00:00 98.6 95 18 135/79 98 Room Air 98.6 06/10/17 22:45 104/66 06/10/17 16:00 97.5 115 20 104/66 97 Room Air 97.5 06/10/17 15:11 144/94 Intake and Output 06/10/17 06/11/17 19:00 07:00 Intake Total 140 ml Balance 140 ml Intake Oral 140 ml # Voids 4 Laboratory Tests 06/11/17 06:05: White Blood Count 13.7H, Red Blood Count 4.90, Hemoglobin 15.6, Hematocrit 43.8 , Mean Corpuscular Volume 89, Mean Corpuscular Hemoglobin 31.7H, Mean Corpuscular Hemoglobin Concent 35.5, Red Cell Distribution Width 12.3, Platelet Count 323, Mean Platelet Volume 6.6, Neutrophils (%) (Auto) 83.4H, Lymphocytes ( %) (Auto) 12.4L, Monocytes (%) (Auto) 3.4, Eosinophils (%) (Auto) 0.4, Basophils (%) (Auto) 0.4, Sodium Level 131L, Potassium Level 3.7, Chloride Level 95L, Carbon Dioxide Level 23, Anion Gap 13, Blood Urea Nitrogen 20H, Creatinine 0.7, Estimat Glomerular Filtration Rate > 60, Glucose Level 379H, Calcium Level 9.9 Height (Feet): 5 Height (Inches): 4.00 Weight (Pounds): 165 General Appearance: alert EENT: normal ENT inspection Neck: normal alignment Cardiovascular: normal peripheral pulses, normal rate, regular rhythm Respiratory/Chest: chest wall non-tender, lungs clear, normal breath sounds Abdomen: normal bowel sounds, non tender, soft Extremities: normal inspection Edema: no edema noted Arm (L), no edema noted Arm (R), no edema noted Leg (L), no edema noted Leg (R), no edema noted Pedal (L), no edema noted Pedal (R), no edema noted Generalized Neurologic: responsive, motor weakness Skin: normal pigmentation, warm/dry SHANTI HAWKINS Jun 11, 2017 14:35
--- NOTE | 2017-06-11 14:51 | General Progress Note ---
Assessment/Plan Problem List: (1) DM (diabetes mellitus) ICD Codes: E11.9 - Type 2 diabetes mellitus without complications SNOMED: 87561980 (2) Neuropathy ICD Codes: G62.9 - Polyneuropathy, unspecified SNOMED: 214973998 (3) HTN (hypertension) ICD Codes: I10 - Essential (primary) hypertension SNOMED: 31381816 Assessment/Plan continue Glipizide and Metformin add Januvia continue NISS Subjective Allergies: Coded Allergies: NO KNOWN ALLERGIES (Verified Allergy, Unknown, 05/01/17) All Systems: reviewed and negative except above Subjective events noted - interval notes reviewed Objective Last 24 Hour Vital Signs Date Time Temp Pulse Resp B/P (MAP) Pulse Ox O2 Delivery O2 Flow Rate FiO2 06/11/17 13:14 116 137/99 06/11/17 12:51 163/95 06/11/17 12:00 98.8 116 19 128/86 97 Room Air 98.8 06/11/17 08:34 97.7 120 20 168/92 99 Room Air 97.7 06/11/17 08:30 168/92 06/11/17 02:46 98.6 06/11/17 00:00 98.6 95 18 135/79 98 Room Air 98.6 06/10/17 22:45 104/66 06/10/17 16:00 97.5 115 20 104/66 97 Room Air 97.5 06/10/17 15:11 144/94 Intake and Output 06/10/17 06/11/17 19:00 07:00 Intake Total 140 ml Balance 140 ml Intake Oral 140 ml # Voids 4 Laboratory Tests 06/11/17 06:05: White Blood Count 13.7H, Red Blood Count 4.90, Hemoglobin 15.6, Hematocrit 43.8 , Mean Corpuscular Volume 89, Mean Corpuscular Hemoglobin 31.7H, Mean Corpuscular Hemoglobin Concent 35.5, Red Cell Distribution Width 12.3, Platelet Count 323, Mean Platelet Volume 6.6, Neutrophils (%) (Auto) 83.4H, Lymphocytes ( %) (Auto) 12.4L, Monocytes (%) (Auto) 3.4, Eosinophils (%) (Auto) 0.4, Basophils (%) (Auto) 0.4, Sodium Level 131L, Potassium Level 3.7, Chloride Level 95L, Carbon Dioxide Level 23, Anion Gap 13, Blood Urea Nitrogen 20H, Creatinine 0.7, Estimat Glomerular Filtration Rate > 60, Glucose Level 379H, Calcium Level 9.9 Height (Feet): 5 Height (Inches): 4.00 Weight (Pounds): 165 General Appearance: no apparent distress EENT: pale conjunctivae Cardiovascular: normal rate Respiratory/Chest: lungs clear Abdomen: normal bowel sounds Pelvis: normal external exam Objective Current Medications Medications (Trade) Dose Ordered Sig/Ramana Route PRN Reason Start Time Stop Time Status Last Admin Dose Admin Acetaminophen (Tylenol) 650 mg Q6H PRN ORAL Mild Pain/Temp > 100.5 06/10/17 12:00 07/10/17 11:59 06/11/17 02:46 Acetaminophen/ Hydrocodone Bitart (Volcano 5/325) 1 tab Q6H PRN ORAL Severe Pain (Pain Scale 7-10) 06/11/17 10:00 06/18/17 09:59 Al Hydroxide/Mg Hydroxide (Mylanta) 30 ml Q6H PRN ORAL stomach upset 06/11/17 08:00 07/11/17 07:59 06/11/17 08:30 Atorvastatin Calcium (Lipitor) 10 mg BEDTIME ORAL 06/10/17 21:00 07/10/17 20:59 06/10/17 22:45 Clonidine HCl (Catapres Tab) 0.1 mg EVERY 6 HOURS PRN ORAL For High Blood Pressure 06/10/17 04:45 07/09/17 22:29 06/11/17 12:51 Dextrose (Dextrose 50%) 25 ml STAT PRN IV Hypoglycemia 06/09/17 22:00 07/09/17 21:59 Dextrose (Dextrose 50%) 50 ml STAT PRN IV Hypoglycemia 06/09/17 22:00 07/09/17 21:59 Dextrose/Sodium Chloride 1,000 ml @ 60 mls/hr [id number] IV 06/09/17 21:45 07/09/17 21:44 06/11/17 06:32 Diltiazem HCl (Cardizem CD) 120 mg DAILY ORAL 06/12/17 09:00 07/12/17 08:59 Famotidine (Pepcid) 20 mg QHS ORAL 06/11/17 21:00 07/11/17 20:59 Gabapentin (Neurontin) 300 mg THREE TIMES A DAY ORAL 06/10/17 09:00 07/10/17 08:59 06/11/17 12:51 Glipizide (Glucotrol) 10 mg BIDPC ORAL 06/10/17 09:00 07/10/17 08:59 06/11/17 08:30 Insulin Aspart (NovoLOG) Q6HR SUBQ 06/10/17 00:00 07/10/17 00:00 06/11/17 12:01 Lisinopril (Zestril) 5 mg BID ORAL 06/11/17 18:00 07/10/17 20:44 Metformin HCl (Glucophage) 850 mg TID ORAL 06/10/17 09:00 07/10/17 08:59 Metoclopramide HCl (Reglan) 5 mg Q6H PRN ORAL Nausea & Vomiting 06/10/17 10:45 07/10/17 10:44 06/11/17 06:32 Morphine Sulfate (Morphine Sulfate) 2 mg Q4H PRN IVP Breakthrough Pain 06/11/17 10:00 06/16/17 22:14 Ondansetron HCl (Zofran) 4 mg Q4HR PRN IVP Nausea & Vomiting 06/09/17 21:45 07/09/17 21:44 06/11/17 03:50 Pantoprazole (Protonix) 40 mg DAILY ORAL 06/11/17 09:00 07/11/17 08:59 06/11/17 08:29 Item Value Date Time Bedside Blood Glucose 269 mg/dl H 06/11/17 1201 Bedside Blood Glucose 360 mg/dl H 06/11/17 0631 Bedside Blood Glucose 255 mg/dl H 06/10/17 2246 Bedside Blood Glucose 283 mg/dl H 06/10/17 1839 Bedside Blood Glucose 342 mg/dl H 06/10/17 1233 BRODY BRAN Jun 11, 2017 14:51
[2017-06-11 16:00] VITALS: BP 84/57
--- NOTE | 2017-06-11 18:59 | Consultation ---
Consult Note Consult Note ID DIC # [id number] ASSESSMENT: The patient is a 56-year-old female with: Nausea, vomiting. Leukocytosis IMPROVING ( due acute stress ) no evid of sepsis Low BP 2/2 to dehydration Cannabinoid hyperemesis syndrome / Gastroparesis. Diabetes. History of urinary tract infection PLAN: monitor pt off of AB Rx Monitor CBC Monitor BMP Monitor chest x-ray. Meir Correa MD Jun 11, 2017 18:59
[2017-06-11 20:00] VITALS: BP 93/65
[2017-06-11] MEDS ORDERED: Sodium Chloride 1gm Tab ORAL ONE (20:00)
--- NOTE | 2017-06-11 23:15 | Consultation ---
DATE OF CONSULTATION: 06/11/2017 INFECTIOUS DISEASE CONSULTATION CONSULTING PHYSICIAN: Meir Correa M.D. REFERRING PHYSICIAN: Clemente Barrow D.O. REASON FOR CONSULTATION: Evaluation of the patient for leukocytosis, possible sepsis, antibiotic management. HISTORY OF PRESENT ILLNESS: The patient is a 56-year-old female who is well known to our service from previous recent admission came to the hospital with abdominal pain, nausea, vomiting. The patient was found to have leukocytosis. Infectious consultation has been requested for further evaluation of the patient and antibiotic management. PAST MEDICAL HISTORY: 1. History of hyperemesis due to cannabinoids. 2. History of gastroparesis. 3. Diabetes. 4. Neuropathy. 5. History of urinary tract infection in the past. MEDICATIONS: Currently off of antibiotics. ALLERGIES: No known drug allergies. SOCIAL HISTORY: The patient smokes marijuana occasionally. FAMILY HISTORY: Not contributing. REVIEW OF SYSTEMS: HEENT: No recent change in vision or hearing. PULMONARY: No cough or shortness of breath. CARDIOVASCULAR: No chest pain or palpitation. GASTROINTESTINAL/ABDOMEN: As mentioned above. No diarrhea. GENITOURINARY: No dysuria. MUSCULOSKELETAL: No pain in extremity. PHYSICAL EXAMINATION: VITAL SIGNS: Temperature 97.3, pulse 86, respiratory rate 18, and blood pressure 84/57. HEENT: No pale conjunctivae. No icterus. NECK: No lymphadenopathy. CHEST: Clear. HEART: S1 and S2. ABDOMEN: Soft and nontender. EXTREMITIES: No cyanosis . NEUROLOGIC: Awake. LABORATORY AND DIAGNOSTIC DATA: White blood cells at the time of admission 14, today is 13.7, hemoglobin 15.6, platelet 326. UA unremarkable. BUN 20 and creatinine 0.6. Liver function tests are unremarkable. CT of abdomen and pelvis, mild fatty liver, normal appendix. ASSESSMENT: The patient is a 56-year-old female with leukocytosis due to acute stress 1. Nausea and vomiting due to gastroparesis. 2. No evidence of sepsis or infection. PLAN: 1. We will monitor the patient off of antibiotics. 2. Monitor CBC. 3. Monitor BMP. 4. We will follow surgical consultants. 5. Hypotension due to dehydration, the patient is asymptomatic. Meir Correa M.D. DR: Kalina JOB#: [id number] CC:
--- NOTE | 2017-06-11 23:50 | Cardiology Progress Note ---
Assessment/Plan Assessment/Plan 1. Sinus tachycardia likely due to hypovolemia, hydration is the mainstay of therapy. 2. Accelerated hypertension, increase lisinopril 5 mg bid, start cardizem 120mg daily, continue clonidine as needed. Subjective Subjective Transferred to the telemetry unit. Had chest pain and tachycardia earlier this morning. Objective Last 24 Hour Vital Signs Date Time Temp Pulse Resp B/P (MAP) Pulse Ox O2 Delivery O2 Flow Rate FiO2 06/11/17 20:00 99.1 99 20 93/65 99 99.1 06/11/17 18:00 98/53 06/11/17 16:00 97.3 98 20 84/57 92 97.3 06/11/17 13:14 116 137/99 06/11/17 12:51 163/95 06/11/17 12:00 98.8 116 19 128/86 97 Room Air 98.8 06/11/17 08:34 97.7 120 20 168/92 99 Room Air 97.7 06/11/17 08:30 168/92 06/11/17 02:46 98.6 06/11/17 00:00 98.6 95 18 135/79 98 Room Air 98.6 Intake and Output 06/10/17 06/11/17 19:00 07:00 Intake Total 140 ml Balance 140 ml Intake Oral 140 ml # Voids 4 Laboratory Tests Test 06/11/17 06:05 White Blood Count 13.7 K/UL (4.8-10.8) H Red Blood Count 4.90 M/UL (4.20-5.40) Hemoglobin 15.6 G/DL (12.0-16.0) Hematocrit 43.8 % (37.0-47.0) Mean Corpuscular Volume 89 FL (80-99) Mean Corpuscular Hemoglobin 31.7 PG (27.0-31.0) H Mean Corpuscular Hemoglobin Concent 35.5 G/DL (32.0-36.0) Red Cell Distribution Width 12.3 % (11.6-14.8) Platelet Count 323 K/UL (150-450) Mean Platelet Volume 6.6 FL (6.5-10.1) Neutrophils (%) (Auto) 83.4 % (45.0-75.0) H Lymphocytes (%) (Auto) 12.4 % (20.0-45.0) L Monocytes (%) (Auto) 3.4 % (1.0-10.0) Eosinophils (%) (Auto) 0.4 % (0.0-3.0) Basophils (%) (Auto) 0.4 % (0.0-2.0) Sodium Level 131 MMOL/L (136-145) L Potassium Level 3.7 MMOL/L (3.5-5.1) Chloride Level 95 MMOL/L (98-107) L Carbon Dioxide Level 23 MMOL/L (21-32) Anion Gap 13 mmol/L (5-15) Blood Urea Nitrogen 20 mg/dL (7-18) H Creatinine 0.7 MG/DL (0.55-1.30) Estimat Glomerular Filtration Rate > 60 mL/min (>60) Glucose Level 379 MG/DL (74-106) H Calcium Level 9.9 MG/DL (8.5-10.1) Objective HEENT: Atraumatic and normocephalic. Anicteric. Pupils are equal, round, and reactive to light and accommodation. Extraocular muscles intact. NECK: JVP is less than 5 cm. No carotid bruit. Carotid upstrokes 2+ bilaterally. CARDIOVASCULAR: Normal S1 and S2. Tachycardiac. No murmurs, gallops, or rubs. PMI is at fourth intercostal space in the midclavicular line. LUNGS: Clear to auscultation bilaterally. ABDOMEN: Soft, nontender, and nondistended. No hepatosplenomegaly. Positive bowel sounds. EXTREMITIES: No evidence of edema, clubbing, or cyanosis. REGINALD CARDOZA Jun 11, 2017 23:50
[2017-06-12] VITALS: BP 98/61
[2017-06-12 04:12] VITALS: BP 85/57
[2017-06-12] MEDS: NovoLOG Insulin Flexpen SUBQ SCH ×3 (06:04→17:20)
[2017-06-12 07:40] LABS: BASOPHILS % (AUTO) 0.8 % (0.0-2.0); EOSINOPHILS % (AUTO) 2.1 % (0.0-3.0); HEMATOCRIT 38.4 % (37.0-47.0); HEMOGLOBIN 13.7 G/DL (12.0-16.0); MEAN CORPUSCULAR VOLUME 89 FL (80-99); MONOCYTES % (AUTO) 7.3 % (1.0-10.0); NEUTROPHILS % (AUTO) 50.8 % (45.0-75.0); PLATELET COUNT 289 K/UL (150-450); RED BLOOD COUNT 4.33 M/UL (4.20-5.40); RED CELL DISTRIBUTION WIDTH 11.9 % (11.6-14.8); WHITE BLOOD COUNT 8.8 K/UL (4.8-10.8)
[2017-06-12 08:00] VITALS: BP 109/62
[2017-06-12 08:09] LABS: ANION GAP 10 mmol/L (5-15); BLOOD UREA NITROGEN 27 mg/dL (7-18); CALCIUM 9.5 MG/DL (8.5-10.1); CARBON DIOXIDE 26 MMOL/L (21-32); CHLORIDE 96 MMOL/L (98-107); CREATININE 0.9 MG/DL (0.55-1.30); SODIUM 132 MMOL/L (136-145)
[2017-06-12] MEDS: Lisinopril 2.5mg tab ORAL SCH ×2 (09:00→18:35)
[2017-06-12] MEDS ORDERED: dilTIAZem HCl CD 120mg cap ORAL SCH (09:00)
[2017-06-12] MEDS: GlipiZIDE 10mg tab ORAL SCH ×2 (09:03→18:34)
--- NOTE | 2017-06-12 10:54 | GI Progress Note ---
Assessment/Plan Problems: (1) Persistent vomiting ICD Codes: R11.10 - Vomiting, unspecified SNOMED: 845875160 (2) Cannabinoid hyperemesis syndrome ICD Codes: F12.988 - Cannabis use, unspecified with other cannabis-induced disorder SNOMED: 948944838, 594269925 (3) DM (diabetes mellitus) ICD Codes: E11.9 - Type 2 diabetes mellitus without complications SNOMED: 66406289 Status: stable Status Narrative Discussed with Dr. Disla. Assessment/Plan CT AP, see full report >> fatty liver. utox >> positive for marijuana okay for DC per GI standpoint symptomatic treatment DM management zofran prn, reglan for persistent vomiting adv diet as tolerated ppi fu labs outpatient GI procedures Subjective Subjective ready for discharge Objective Last 24 Hour Vital Signs Date Time Temp Pulse Resp B/P (MAP) Pulse Ox O2 Delivery O2 Flow Rate FiO2 06/12/17 09:00 90 109/62 06/12/17 09:00 109/62 06/12/17 08:00 97.2 90 20 109/62 100 97.2 06/12/17 05:01 98.2 06/12/17 04:12 77 85/57 06/12/17 04:01 98.2 06/12/17 00:00 98.2 74 20 98/61 98 98.2 06/11/17 20:00 99.1 99 20 93/65 99 99.1 06/11/17 18:00 98/53 06/11/17 16:00 97.3 98 20 84/57 92 97.3 06/11/17 13:14 116 137/99 06/11/17 12:51 163/95 06/11/17 12:00 98.8 116 19 128/86 97 Room Air 98.8 Intake and Output 06/11/17 06/12/17 19:00 07:00 Intake Total 420 ml Balance 420 ml IV Total 420 ml # Voids 2 Laboratory Tests Test 06/12/17 06:55 White Blood Count 8.8 K/UL (4.8-10.8) Red Blood Count 4.33 M/UL (4.20-5.40) Hemoglobin 13.7 G/DL (12.0-16.0) Hematocrit 38.4 % (37.0-47.0) Mean Corpuscular Volume 89 FL (80-99) Mean Corpuscular Hemoglobin 31.6 PG (27.0-31.0) H Mean Corpuscular Hemoglobin Concent 35.6 G/DL (32.0-36.0) Red Cell Distribution Width 11.9 % (11.6-14.8) Platelet Count 289 K/UL (150-450) Mean Platelet Volume 6.6 FL (6.5-10.1) Neutrophils (%) (Auto) 50.8 % (45.0-75.0) Lymphocytes (%) (Auto) 39.0 % (20.0-45.0) Monocytes (%) (Auto) 7.3 % (1.0-10.0) Eosinophils (%) (Auto) 2.1 % (0.0-3.0) Basophils (%) (Auto) 0.8 % (0.0-2.0) Sodium Level 132 MMOL/L (136-145) L Potassium Level 3.0 MMOL/L (3.5-5.1) L Chloride Level 96 MMOL/L (98-107) L Carbon Dioxide Level 26 MMOL/L (21-32) Anion Gap 10 mmol/L (5-15) Blood Urea Nitrogen 27 mg/dL (7-18) H Creatinine 0.9 MG/DL (0.55-1.30) Estimat Glomerular Filtration Rate > 60 mL/min (>60) Glucose Level 234 MG/DL (74-106) #H Calcium Level 9.5 MG/DL (8.5-10.1) Height (Feet): 5 Height (Inches): 4.00 Weight (Pounds): 165 General Appearance: WD/WN, no apparent distress, alert Cardiovascular: normal rate Respiratory/Chest: normal breath sounds, no respiratory distress Abdominal Exam: normal bowel sounds, non tender, soft Extremities: normal range of motion, non-tender Jeanine Alejandro N.P. Jun 12, 2017 10:54
--- NOTE | 2017-06-12 11:47 | Infectious Diseases Prog Note ---
Assessment/Plan Assessment/Plan ASSESSMENT: The patient is a 56-year-old female with leukocytosis due to acute stress, SP Nausea and vomiting due to gastroparesis. No evidence of sepsis or infection. CT : abdomen and pelvis, mild fatty liver, normal appendix SP Hypotension due to dehydration, the patient is asymptomatic History of hyperemesis due to cannabinoids. History of gastroparesis Diabetes. Neuropathy. History of urinary tract infection in the past. PLAN: monitor the patient off of antibiotics Monitor CBC. Monitor BMP Subjective Constitutional: Denies: no symptoms, fever, chills, fatigue, anorexia, drenching sweats, other Allergies: Coded Allergies: NO KNOWN ALLERGIES (Verified Allergy, Unknown, 05/01/17) Objective Vital Signs Last 24 Hour Vital Signs Date Time Temp Pulse Resp B/P (MAP) Pulse Ox O2 Delivery O2 Flow Rate FiO2 06/12/17 09:00 90 109/62 06/12/17 09:00 109/62 06/12/17 08:00 97.2 90 20 109/62 100 97.2 06/12/17 05:01 98.2 06/12/17 04:12 77 85/57 06/12/17 04:01 98.2 06/12/17 00:00 98.2 74 20 98/61 98 98.2 06/11/17 20:00 99.1 99 20 93/65 99 99.1 06/11/17 18:00 98/53 06/11/17 16:00 97.3 98 20 84/57 92 97.3 06/11/17 13:14 116 137/99 06/11/17 12:51 163/95 06/11/17 12:00 98.8 116 19 128/86 97 Room Air 98.8 Height (Feet): 5 Height (Inches): 4.00 Weight (Pounds): 165 HEENT: atraumatic Respiratory/Chest: normal breath sounds Cardiovascular: regular rhythm Abdomen: no organomegaly Laboratory Tests Test 06/12/17 06:55 White Blood Count 8.8 K/UL (4.8-10.8) Red Blood Count 4.33 M/UL (4.20-5.40) Hemoglobin 13.7 G/DL (12.0-16.0) Hematocrit 38.4 % (37.0-47.0) Mean Corpuscular Volume 89 FL (80-99) Mean Corpuscular Hemoglobin 31.6 PG (27.0-31.0) H Mean Corpuscular Hemoglobin Concent 35.6 G/DL (32.0-36.0) Red Cell Distribution Width 11.9 % (11.6-14.8) Platelet Count 289 K/UL (150-450) Mean Platelet Volume 6.6 FL (6.5-10.1) Neutrophils (%) (Auto) 50.8 % (45.0-75.0) Lymphocytes (%) (Auto) 39.0 % (20.0-45.0) Monocytes (%) (Auto) 7.3 % (1.0-10.0) Eosinophils (%) (Auto) 2.1 % (0.0-3.0) Basophils (%) (Auto) 0.8 % (0.0-2.0) Sodium Level 132 MMOL/L (136-145) L Potassium Level 3.0 MMOL/L (3.5-5.1) L Chloride Level 96 MMOL/L (98-107) L Carbon Dioxide Level 26 MMOL/L (21-32) Anion Gap 10 mmol/L (5-15) Blood Urea Nitrogen 27 mg/dL (7-18) H Creatinine 0.9 MG/DL (0.55-1.30) Estimat Glomerular Filtration Rate > 60 mL/min (>60) Glucose Level 234 MG/DL (74-106) #H Calcium Level 9.5 MG/DL (8.5-10.1) Current Medications Medications (Trade) Dose Ordered Sig/Ramana Route PRN Reason Start Time Stop Time Status Last Admin Dose Admin Acetaminophen (Tylenol) 650 mg Q6H PRN ORAL Mild Pain/Temp > 100.5 06/10/17 12:00 07/10/17 11:59 06/12/17 04:01 Acetaminophen/ Hydrocodone Bitart (Gordon 5/325) 1 tab Q6H PRN ORAL Severe Pain (Pain Scale 7-10) 06/11/17 10:00 06/18/17 09:59 Al Hydroxide/Mg Hydroxide (Mylanta) 30 ml Q6H PRN ORAL stomach upset 06/11/17 08:00 07/11/17 07:59 06/11/17 08:30 Atorvastatin Calcium (Lipitor) 10 mg BEDTIME ORAL 06/10/17 21:00 07/10/17 20:59 06/11/17 20:27 Clonidine HCl (Catapres Tab) 0.1 mg EVERY 6 HOURS PRN ORAL For High Blood Pressure 06/10/17 04:45 07/09/17 22:29 06/11/17 12:51 Dextrose (Dextrose 50%) 25 ml STAT PRN IV Hypoglycemia 06/09/17 22:00 07/09/17 21:59 Dextrose (Dextrose 50%) 50 ml STAT PRN IV Hypoglycemia 06/09/17 22:00 07/09/17 21:59 Diltiazem HCl (Cardizem CD) 120 mg DAILY ORAL 06/12/17 09:00 07/12/17 08:59 Famotidine (Pepcid) 20 mg QHS ORAL 06/11/17 21:00 07/11/17 20:59 06/11/17 20:27 Gabapentin (Neurontin) 300 mg THREE TIMES A DAY ORAL 06/10/17 09:00 07/10/17 08:59 06/12/17 09:03 Glipizide (Glucotrol) 10 mg BIDPC ORAL 06/10/17 09:00 07/10/17 08:59 06/12/17 09:03 Insulin Aspart (NovoLOG) AC+HS SUBQ 06/11/17 21:00 07/10/17 00:00 06/12/17 06:04 Lisinopril (Zestril) 5 mg BID ORAL 06/11/17 18:00 07/10/17 20:44 Metformin HCl (Glucophage) 850 mg TID ORAL 06/10/17 09:00 07/10/17 08:59 06/12/17 09:03 Metoclopramide HCl (Reglan) 5 mg Q6H PRN ORAL Nausea & Vomiting 06/10/17 10:45 07/10/17 10:44 06/12/17 04:00 Morphine Sulfate (Morphine Sulfate) 2 mg Q4H PRN IVP Breakthrough Pain 06/11/17 10:00 06/16/17 22:14 Ondansetron HCl (Zofran) 4 mg Q4HR PRN IVP Nausea & Vomiting 06/09/17 21:45 07/09/17 21:44 06/11/17 03:50 Pantoprazole (Protonix) 40 mg DAILY ORAL 06/11/17 09:00 07/11/17 08:59 06/12/17 09:03 Sitagliptin Phosphate (Januvia) 100 mg ACBREAKFAST ORAL 06/12/17 06:30 07/12/17 06:29 06/12/17 06:01 Meir Correa MD Jun 12, 2017 11:47
[2017-06-12 11:51] VITALS: BP 117/75
--- NOTE | 2017-06-12 13:05 | General Progress Note ---
Assessment/Plan Problem List: (1) HTN (hypertension) ICD Codes: I10 - Essential (primary) hypertension SNOMED: 24860255 (2) Diabetes ICD Codes: E11.9 - Type 2 diabetes mellitus without complications SNOMED: 61259692 (3) Neuropathy ICD Codes: G62.9 - Polyneuropathy, unspecified SNOMED: 201735335 (4) Leukocytosis ICD Codes: D72.829 - Elevated white blood cell count, unspecified SNOMED: 300707226, 114503667 (5) DM (diabetes mellitus) ICD Codes: E11.9 - Type 2 diabetes mellitus without complications SNOMED: 40690406 (6) Persistent vomiting ICD Codes: R11.10 - Vomiting, unspecified SNOMED: 810235770 Status: stable, progressing, tolerating diet Assessment/Plan ot pt diet pain bs nausea control dc if clear Subjective Constitutional: Reports: weakness Allergies: Coded Allergies: NO KNOWN ALLERGIES (Verified Allergy, Unknown, 05/01/17) All Systems: reviewed and negative except above Subjective sl nausea Objective Last 24 Hour Vital Signs Date Time Temp Pulse Resp B/P (MAP) Pulse Ox O2 Delivery O2 Flow Rate FiO2 06/12/17 11:51 98.0 83 20 117/75 98 98.0 06/12/17 09:00 90 109/62 06/12/17 09:00 109/62 06/12/17 08:00 97.2 90 20 109/62 100 97.2 06/12/17 05:01 98.2 06/12/17 04:12 77 85/57 06/12/17 04:01 98.2 06/12/17 00:00 98.2 74 20 98/61 98 98.2 06/11/17 20:00 99.1 99 20 93/65 99 99.1 06/11/17 18:00 98/53 06/11/17 16:00 97.3 98 20 84/57 92 97.3 06/11/17 13:14 116 137/99 Intake and Output 06/11/17 06/12/17 19:00 07:00 Intake Total 420 ml Balance 420 ml IV Total 420 ml # Voids 2 Laboratory Tests 06/12/17 06:55: White Blood Count 8.8, Red Blood Count 4.33, Hemoglobin 13.7, Hematocrit 38.4, Mean Corpuscular Volume 89, Mean Corpuscular Hemoglobin 31.6H, Mean Corpuscular Hemoglobin Concent 35.6, Red Cell Distribution Width 11.9, Platelet Count 289, Mean Platelet Volume 6.6, Neutrophils (%) (Auto) 50.8, Lymphocytes (%) (Auto) 39.0, Monocytes (%) (Auto) 7.3, Eosinophils (%) (Auto) 2.1, Basophils (%) (Auto ) 0.8, Sodium Level 132L, Potassium Level 3.0L, Chloride Level 96L, Carbon Dioxide Level 26, Anion Gap 10, Blood Urea Nitrogen 27H, Creatinine 0.9, Estimat Glomerular Filtration Rate > 60, Glucose Level 234#H, Calcium Level 9.5 Height (Feet): 5 Height (Inches): 4.00 Weight (Pounds): 165 General Appearance: lethargic EENT: normal ENT inspection Neck: normal alignment Cardiovascular: normal peripheral pulses, normal rate, regular rhythm Respiratory/Chest: chest wall non-tender, lungs clear, normal breath sounds Abdomen: normal bowel sounds, non tender, soft Extremities: normal inspection Edema: no edema noted Arm (L), no edema noted Arm (R), no edema noted Leg (L), no edema noted Leg (R), no edema noted Pedal (L), no edema noted Pedal (R), no edema noted Generalized Neurologic: motor weakness Skin: normal pigmentation, warm/dry SHANTI HAWKINS Jun 12, 2017 13:05
--- NOTE | 2017-06-12 15:00 | Cardiology Report ---
APPROVED REPORT EKG Measurement Heart [id number] MA [id number] [id number] Sinus tachycardia Nonspecific T wave abnormality Abnormal ECG
[2017-06-12] MEDS ORDERED: JANUVIA100 MG ORAL (15:15)
[2017-06-12] MEDS ORDERED: LISINOPRIL5 MG ORAL (15:16)
[2017-06-12] MEDS ORDERED: METOCLOPRAMIDE H5 M1 ORAL (15:18)
[2017-06-12 16:00] VITALS: BP 122/79
[2017-06-12 18:35] VITALS: BP 130/87
--- NOTE | 2017-06-12 18:57 | Cardiology Progress Note ---
Assessment/Plan Assessment/Plan 1. Sinus tachycardia, resolved, likely due to hypovolemia, continue cardizem. 2. Accelerated hypertension, decrease lisinopril to 2.5 mg daily, continue cardizem 120mg daily. Subjective Subjective Denies dizziness or lightheadedness. BP was held this morning. Objective Last 24 Hour Vital Signs Date Time Temp Pulse Resp B/P (MAP) Pulse Ox O2 Delivery O2 Flow Rate FiO2 06/12/17 18:35 130/87 06/12/17 16:00 98.2 86 20 122/79 98 98.2 06/12/17 11:51 98.0 83 20 117/75 98 98.0 06/12/17 09:00 90 109/62 06/12/17 09:00 109/62 06/12/17 08:00 97.2 90 20 109/62 100 97.2 06/12/17 05:01 98.2 06/12/17 04:12 77 85/57 06/12/17 04:01 98.2 06/12/17 00:00 98.2 74 20 98/61 98 98.2 06/11/17 20:00 99.1 99 20 93/65 99 99.1 Intake and Output 06/11/17 06/12/17 19:00 07:00 Intake Total 420 ml Balance 420 ml IV Total 420 ml # Voids 2 Laboratory Tests Test 06/12/17 06:55 White Blood Count 8.8 K/UL (4.8-10.8) Red Blood Count 4.33 M/UL (4.20-5.40) Hemoglobin 13.7 G/DL (12.0-16.0) Hematocrit 38.4 % (37.0-47.0) Mean Corpuscular Volume 89 FL (80-99) Mean Corpuscular Hemoglobin 31.6 PG (27.0-31.0) H Mean Corpuscular Hemoglobin Concent 35.6 G/DL (32.0-36.0) Red Cell Distribution Width 11.9 % (11.6-14.8) Platelet Count 289 K/UL (150-450) Mean Platelet Volume 6.6 FL (6.5-10.1) Neutrophils (%) (Auto) 50.8 % (45.0-75.0) Lymphocytes (%) (Auto) 39.0 % (20.0-45.0) Monocytes (%) (Auto) 7.3 % (1.0-10.0) Eosinophils (%) (Auto) 2.1 % (0.0-3.0) Basophils (%) (Auto) 0.8 % (0.0-2.0) Sodium Level 132 MMOL/L (136-145) L Potassium Level 3.0 MMOL/L (3.5-5.1) L Chloride Level 96 MMOL/L (98-107) L Carbon Dioxide Level 26 MMOL/L (21-32) Anion Gap 10 mmol/L (5-15) Blood Urea Nitrogen 27 mg/dL (7-18) H Creatinine 0.9 MG/DL (0.55-1.30) Estimat Glomerular Filtration Rate > 60 mL/min (>60) Glucose Level 234 MG/DL (74-106) #H Calcium Level 9.5 MG/DL (8.5-10.1) Objective HEENT: Atraumatic and normocephalic. Anicteric. Pupils are equal, round, and reactive to light and accommodation. Extraocular muscles intact. NECK: JVP is less than 5 cm. No carotid bruit. Carotid upstrokes 2+ bilaterally. CARDIOVASCULAR: Normal S1 and S2. Tachycardiac. No murmurs, gallops, or rubs. PMI is at fourth intercostal space in the midclavicular line. LUNGS: Clear to auscultation bilaterally. ABDOMEN: Soft, nontender, and nondistended. No hepatosplenomegaly. Positive bowel sounds. EXTREMITIES: No evidence of edema, clubbing, or cyanosis. REGINALD CARDOZA Jun 12, 2017 18:57
--- NOTE | 2017-06-13 08:53 | Discharge Summary ---
Discharge Summary Discharge Summary Discharge Summary DATE OF ADMISSION: 06/09/2017 DATE OF DISCHARGE: 2017 REASON FOR ADMISSION: 56 years old female with a history of diabetes, neuropathy, presented with to emergency department with nausea, intractable vomiting and abdominal pain. Upon evaluation blood pressure- 201/99. EKG initially revealed normal sinus rhythm, no acute ischemic changes, later patient became tachycardic. Laboratory workup revealed elevated anion gap -22, glucose -366. Leukocytosis WBC -13.6, stable hemoglobin and hematocrit, stable renal parameters and LFT. ECG revealed normal sinus rhythm, no acute ischemic changes. Abdominal x-ray revealed no acute findings. Patient was reported not taking glipizide and metformin for some time, since she ran out of the medication. Urine toxicology screen was positive for marijuana, high-level. Patient was admitted with diagnoses of cannabinoid hyperemesis syndrome, diabetes mellitus hypertensive urgency, leukocytosis, sinus tachycardia CONSULTANTS: air filler Dr. Carlson ID specialist Dr. Correa GI specialist Manager Valuation [facility] COURSE: Patient admitted. Consumer Electronics Merchandiser seen and evaluated the patient. Antihypertensive medication regimen was optimized. At the end patient was on Cardizem and lisinopril, blood pressure remained controlled with current regimen. Sinus tachycardia was likely due to the osmotic diuresis secondary to uncontrolled diabetes/hypovolemia. Patient was started on gentle IV hydration. Sinus tachycardia subsequently resolved. GI specialist closely followed. Urine tox screen positive for marijuana high- level. Patient was advised on abstinence from marijuana. Antiemetics provided as needed. Patient started on PPI. Diet advanced as tolerated. Recommended outpatient GI procedures as needed. CT of the abdomen and pelvis revealed evidence of mild fatty liver. Normal appendix, otherwise no acute intra-abdominal pathology. Intractable nausea and vomiting resolved with the symptomatic treatment. Patient was able to tolerate diet. Manager Valuation closely followed. Patient was started on Januvia and sliding scale of insulin as needed in addition to metformin and glipizide. Patient was on diabetic diet. Patient was strongly advised to be compliant with anti- glycemic medication regimen. ID specialist closely followed. Patient initially had leukocytosis . According to ID specialist , leukocytosis was likely reactive due to intractable nausea and vomiting. There was no evidence of infection. ID specialist recommended to monitor patient off antibiotic. Symptomatic treatment provided. Pain management was addressed as needed. Renal parameters and electrolytes were closely monitored. Electrolytes were corrected as needed. Nephrotoxics were avoided. Blood sugar improved. Blood pressure stable. Anion gap closed. Patient was able to tolerate diet. Patient was stable for discharge. FINAL DIAGNOSES: Cannabinoid hyperemesis syndrome Hypertensive urgency, resolved Diabetes mellitus Sinus tachycardia, secondary to hypovolemia -resolved Neuropathy Leukocytosis, reactive due to intractable vomiting- resolved DISCHARGE MEDICATIONS: See Medication Reconciliation list. DISCHARGE INSTRUCTIONS: Patient was discharged home Follow up with primary care provider I have been assigned to dictate discharge summary for this account. I was not involved in the patient's management. Jonny (YoelDiana leroy NP Jun 13, 2017 08:53
== END 2017-06-12 20:00 | disposition home or self-care (01) | DRG 897 ==
LOC: EMR 16:25 → EDBEDREQ 19:16 → 4E 19:42 → EDBEDREQ 20:37
DX: F12.188 Cannabis abuse with other cannabis-induced disorder (principal); R11.2 Nausea with vomiting, unspecified; E11.9 Type 2 diabetes mellitus without complications; I16.0 Hypertensive urgency; E86.1 Hypovolemia; R00.0 Tachycardia, unspecified; E86.0 Dehydration; G62.9 Polyneuropathy, unspecified; I10 Essential (primary) hypertension
CPT/HCPCS: 36415; 74019; 74177; 80048; 80053; 80307; 81003; 82962; 83690; 85025; 93005; 99285; J1815; J2405; J2765; J8499

== ENCOUNTER 2017-06-14 08:17 | Inpatient (IN) | payer SELFPAY ==
[~2017-06-14] VITALS: Ht 162.6 cm; Wt 67.8 kg
[2017-06-14] VITALS (10 sets, daily range): BP systolic 130–215; BP diastolic 80–110
[~2017-06-14 08:17] MED LIST changes: +JANUVIA100 MG ORAL; +LISINOPRIL5 MG ORAL; +METOCLOPRAMIDE H5 M1 ORAL
[2017-06-14] MEDS ORDERED: DiphenhydrAMINE 50mg/ml Inj IVP ONE (08:45)
[2017-06-14] MEDS ORDERED: Metoclopramide 10mg/2ml Inj IVP ONE (08:45)
[2017-06-14] MEDS ORDERED: Morphine Sulfate 2mg/ml Inj IVP ONE (08:45)
--- NOTE | 2017-06-14 08:51 | Emergency Room Report ---
History of Present Illness General Chief Complaint: Chest Pain Source: Patient Present Illness HPI The patient presents with vomiting and chest pain. This began yesterday. She was recently discharged on Thursday for vomiting and hypertension. She was unable to fill her prescriptions mainly Reglan. She's unable to take her blood pressure medication. The pain is 7/10 in her chest and pressure. It does not radiate and has been constant. She was admitted to the hospital because her blood pressures out of control and she was vomiting. Patient has history of diabetes. She is on oral medications and not insulin. She is a history of neuropathy. Her stools have been loose however there is no diarrhea. The vomiting she's and doing does not have any blood or coffee grounds. The nausea is severe. She feels weak and is anxious. She was admitted in early April with hyperglycemia, metabolic acidosis, tachycardia. Treated with IV hydration and insulin. [place] to have pyelonephritis at that time treated with antibiotics. Allergies: Coded Allergies: NO KNOWN ALLERGIES (Verified Allergy, Unknown, 05/01/17) Patient History Past Medical History: see triage record, old chart reviewed Social History: Denies: smoking, alcohol use Social History Narrative with son Last Menstrual Period: Unk Reviewed Nursing Documentation: PMH: Agreed; PSxH: Agreed Nursing Documentation-PMH Hx Cardiac Problems: No Hx Hypertension: Yes Hx Diabetes: Yes Hx Cancer: No Hx Gastrointestinal Problems: No Hx Neurological Problems: Yes - Neuropathy, Migraines Review of Systems All Other Systems: negative except mentioned in HPI Physical Exam Vital Signs Date Time Temp Pulse Resp B/P (MAP) Pulse Ox O2 Delivery O2 Flow Rate FiO2 06/14/17 08:30 98.8 83 26 212/103 100 Room Air 98.8 Sp02 EP Interpretation: reviewed, normal General Appearance: GCS 15 - slightly confused, non-toxic, mild distress, other - frail and vomiting Head: normocephalic Eyes: bilateral eye normal inspection, bilateral eye PERRL ENT: moist mucus membranes Neck: supple Respiratory: chest non-tender, lungs clear, normal breath sounds Cardiovascular #1: regular rate, rhythm Cardiovascular #2: 2+ radial (R) Gastrointestinal: normal inspection, non tender, no mass, non-distended, decreased bowel sounds Genitourinary: no CVA tenderness Musculoskeletal: back normal, normal range of motion Neurologic: alert, oriented x3, motor strength/tone normal - slight tremor, DTRs symmetric, sensory intact, speech normal, other - unsteady on her feet, grossly normal Psychiatric: anxious Skin: normal inspection, warm/dry Procedures Critical Care Time Critical Care Time Total Critical Care Time: 30 min bedside evaluation and treatment excludes procedures (EKG). Reason for critical care: hypertensive urgency, hyperglycemia/consideration DKA Possible complications: hypotension, hypertension, [place], shock, arrhythmias, metabolic acidosis, end organ damage, respiratory failure. Interventions: IV hydration, insulin, hydralazine, labetalol, analgesia Course: Patient represents with vomiting, abdominal pain after recent discharge. Abdominal pain improved with minimal analgesia. Continued vomiting. Mild acidosis with bicarb 18. HTN extremely elevated. Treated with repeated doses of hydralazine. Repeat evaluations. Switched to labetalol as tachycardic. BP better. Discussed with son. Elevated glucose treated with IV insulin. Admit telemetry. Discussed with PMD. Consultations: nursing staff, EMS, family, PMD, actuarial consultant Performed by: Dr. Powers Tolerated well condition = serious Medical Decision Making Diagnostic Impression: Primary Impression: Hypertensive urgency Additional Impressions: Persistent vomiting Diabetes Qualified Codes: E11.40 - Type 2 diabetes mellitus with diabetic neuropathy, unspecified Hyponatremia Hyperglycemia ER Course Patient presents with vomiting and chest pain. Differential includes acute myocardial infarction, acute coronary syndrome, esophagitis, gastritis, gastroparesis, peptic ulcer disease, gallbladder disease, DKA amongst others. Evaluation will be with EKG, chest x-ray and labs. The patient will be treated with Reglan, Benadryl and morphine. A significant consistent patient was unable to fill her discharge prescriptions. Also she is hypertensive at this time and we may need to treat this. She does not have a surgical abdomen at this time. EKG without injury. CXR no infiltrates. CBC unremarkable. CMP with low sodium and elevated glucose (possible pseudohyponatremia), bicarb 18, BUN 20, normal creat. Urine + for ketones and glucose. Blood pressure still high after treatment of pain. This will be addressed given a dose of hydralazine as the heart rate is not elevated. BP still very high. Hydralazine repeated. Patient denies pain and it is controlled with morphine 2 mg. Pepcid and zofran given for vomiting. HR elevated after hydralazine. Labetalol given. Compazine given for vomiting. Labetalol repeated. Complex patient with hyperglycemia, moderated decrease in bicarb and ketones. This could be mild DKA. Treated with continued IV hydration and IV insulin. Admit telemetry, Dr. Barrow. Laboratory Tests Test 06/14/17 08:40 06/14/17 09:50 Urine Color Pale yellow Urine Appearance Clear Urine pH 5 (4.5-8.0) Urine Specific [place] 1.010 (1.005-1.035) Urine Protein 2+ (NEGATIVE) H Urine Glucose (UA) 4+ (NEGATIVE) H Urine Ketones 4+ (NEGATIVE) H Urine Occult Blood Negative (NEGATIVE) Urine Nitrite Negative (NEGATIVE) Urine Bilirubin Negative (NEGATIVE) Urine Urobilinogen Normal MG/DL (0.0-1.0) Urine Leukocyte Esterase Negative (NEGATIVE) Urine RBC 0-2 /HPF (0 - 2) Urine WBC 0-2 /HPF (0 - 2) Urine Squamous Epithelial Cells Occasional /LPF Urine Bacteria Occasional /HPF (NONE) White Blood Count 8.4 K/UL (4.8-10.8) Red Blood Count 4.72 M/UL (4.20-5.40) Hemoglobin 14.6 G/DL (12.0-16.0) Hematocrit 41.0 % (37.0-47.0) Mean Corpuscular Volume 87 FL (80-99) Mean Corpuscular Hemoglobin 30.9 PG (27.0-31.0) Mean Corpuscular Hemoglobin Concent 35.5 G/DL (32.0-36.0) Red Cell Distribution Width 11.3 % (11.6-14.8) L Platelet Count 284 K/UL (150-450) Mean Platelet Volume 6.6 FL (6.5-10.1) Neutrophils (%) (Auto) 75.5 % (45.0-75.0) H Lymphocytes (%) (Auto) 19.3 % (20.0-45.0) L Monocytes (%) (Auto) 3.7 % (1.0-10.0) Eosinophils (%) (Auto) 0.7 % (0.0-3.0) Basophils (%) (Auto) 0.8 % (0.0-2.0) Prothrombin Time 10.0 SEC (9.30-11.50) Prothrombin Time INR 1.0 (0.9-1.1) PTT 24 SEC (23-33) Sodium Level 129 MMOL/L (136-145) L Potassium Level 3.9 MMOL/L (3.5-5.1) Chloride Level 96 MMOL/L (98-107) L Carbon Dioxide Level 18 MMOL/L (21-32) L Anion Gap 15 mmol/L (5-15) Blood Urea Nitrogen 20 mg/dL (7-18) H Creatinine 0.6 MG/DL (0.55-1.30) Estimate Glomerular Filtration Rate > 60 mL/min (>60) Glucose Level 311 MG/DL (74-106) H Calcium Level 10.3 MG/DL (8.5-10.1) H Total Bilirubin 0.8 MG/DL (0.2-1.0) Aspartate Amino Transferase (AST) 14 U/L (15-37) L Alanine Aminotransferase (ALT) 34 U/L (12-78) Alkaline Phosphatase 67 U/L (46-116) Total Creatine Kinase 23 U/L (26-308) L Troponin I 0.000 ng/mL (0.000-0.056) Pro-B-Type Natriuretic Peptide 101 pg/mL (0-125) Total Protein 7.6 G/DL (6.4-8.2) Albumin 3.9 G/DL (3.4-5.0) Globulin 3.7 g/dL Albumin/Globulin Ratio 1.1 (1.0-2.7) Lipase 132 U/L (73-393) EKG Diagnostic Results Rate: normal Rhythm: NSR ST Segments: no acute changes Rhythm Strip Diag. Results EP Interpretation: yes Rhythm: NSR, no PVC's, no ectopy Chest X-Ray Diagnostic Results Chest X-Ray Diagnostic Results : Chest X-Ray Ordered: Yes # of Views/Limited/Complete: 1 View Indication: Chest Pain Interpretation: no consolidation, no effusion, no pneumothorax Impression: Other Electronically Signed by: Electronically signed by Kelvin Powers MD Last Vital Signs Date Time Temp Pulse Resp B/P (MAP) Pulse Ox O2 Delivery O2 Flow Rate FiO2 06/14/17 20:18 121 18 Room Air 06/14/17 18:37 167/89 06/14/17 16:00 97.9 100 97.9 Status: improved Disposition: ADMITTED INPATIENT Condition: Serious Kelvin Powers M.D. Jun 14, 2017 08:51
[2017-06-14 10:02] LABS: BASOPHILS % (AUTO) 0.8 % (0.0-2.0); EOSINOPHILS % (AUTO) 0.7 % (0.0-3.0); HEMOGLOBIN 14.6 G/DL (12.0-16.0); LYMPHOCYTES % (AUTO) 19.3 % (20.0-45.0); MEAN CORPUSCULAR VOLUME 87 FL (80-99); MONOCYTES % (AUTO) 3.7 % (1.0-10.0); NEUTROPHILS % (AUTO) 75.5 % (45.0-75.0); PLATELET COUNT 284 K/UL (150-450); RED BLOOD COUNT 4.72 M/UL (4.20-5.40); RED CELL DISTRIBUTION WIDTH 11.3 % (11.6-14.8); WHITE BLOOD COUNT 8.4 K/UL (4.8-10.8)
[2017-06-14 10:17] LABS: ANION GAP 15 mmol/L (5-15); BLOOD UREA NITROGEN 20 mg/dL (7-18); CALCIUM 10.3 MG/DL (8.5-10.1); CARBON DIOXIDE 18 MMOL/L (21-32); CHLORIDE 96 MMOL/L (98-107); CREATININE 0.6 MG/DL (0.55-1.30); POTASSIUM 3.9 MMOL/L (3.5-5.1); SODIUM 129 MMOL/L (136-145)
--- NOTE | 2017-06-14 10:19 | Diagnostic Imaging Report ---
Indication: Chest pain Technique: One view of the chest Comparison: 05/01/2017 Findings: Lungs and pleural spaces are clear. Heart size is normal. No significant interim change Impression: No acute process
[2017-06-14 10:27] LABS: ALANINE AMINOTRANSFERASE 34 U/L (12-78); ALBUMIN 3.9 G/DL (3.4-5.0); ALBUMIN/GLOBULIN RATIO 1.1 (1.0-2.7); ALKALINE PHOSPHATASE 67 U/L (46-116); ASPARTATE AMINO TRANSFERASE 14 U/L (15-37); BILIRUBIN,TOTAL 0.8 MG/DL (0.2-1.0); CREATINE KINASE 23 U/L (26-308)
[2017-06-14] MEDS ORDERED: Labetalol 5mg/ml 20ml vial IV STA ×2 (10:47→11:26)
[2017-06-14 11:06] LABS: APPEARANCE,URINE CLEAR; BILIRUBIN, URINE NEGATIVE (NEGATIVE); COLOR,URINE PALE YELLOW; GLUCOSE, URINE (UA) 4+ (NEGATIVE); KETONES,URINE 4+ (NEGATIVE); LEUKOCYTE ESTERASE ,URINE NEGATIVE (NEGATIVE); NITRITE,URINE NEGATIVE (NEGATIVE); PH,URINE 5 (4.5-8.0); PROTEIN,URINE 2+ (NEGATIVE); UROBILINOGEN,URINE NORMAL MG/DL (0.0-1.0)
[2017-06-14] MEDS ORDERED: Ketorolac 30mg Inj IV PRN (13:45)
[2017-06-14] MEDS ORDERED: Miralax 17gm pkt ORAL PRN (13:45)
[2017-06-14] MEDS ORDERED: Albuterol/Ipratropium 3ml neb HHN PRN (13:45)
[2017-06-14] MEDS ORDERED: Nitroglycerin Subl 0.4mg tab SL PRN (14:00)
--- NOTE | 2017-06-14 14:24 | Consultation ---
History of Present Illness General Date patient seen: Jun 14, 2017 Chief Complaint: Chest Pain Present Illness HPI 56 year old female with hx of DM, HTN presented to ER with CC of vomiting and chest pain that began yesterday. She was recently discharged on Thursday for vomiting and hypertension. She was unable to fill her prescriptions mainly Reglan. She's unable to take her blood pressure medication. The pain is 7/10 in her chest and pressure. It does not radiate and has been constant. She is admitted for uncontrolled BP and intractable nausea and vomiting. Allergies: Coded Allergies: NO KNOWN ALLERGIES (Verified Allergy, Unknown, 05/01/17) Medication History Scheduled Atorvastatin Calcium* (Atorvastatin Calcium*), 10 MG ORAL BEDTIME, (Reported) Gabapentin* (Gabapentin*), 300 MG ORAL THREE TIMES A DAY, (Reported) Glipizide* (Glucotrol*), 10 MG ORAL BID, (Reported) Glyburide/Metformin Hcl (Glyburide-Metformin 5-500 Mg), 1 EACH PO BID, (Reported ) Levofloxacin* (Levofloxacin*), 750 MG ORAL DAILY Lisinopril (Lisinopril*), 5 MG ORAL BID, (Reported) Metformin Hcl* (Metformin Hcl*), 850 MG ORAL TID, (Reported) Metoclopramide Hcl* (Metoclopramide Hcl*), 5 MG ORAL EVERY 6 HOURS, (Reported) Sitagliptin (Januvia), 100 MG ORAL ACBREAKFAST, (Reported) Trimethoprim/Sulfamethoxazole (Bactrim Ds Tablet), 1 TAB ORAL TWICE A DAY Trimethoprim/Sulfamethoxazole 160/800* (Bactrim Ds Tablet*), 1 TAB ORAL TWICE A DAY Scheduled PRN Acetaminophen With Codeine (T#3) (Tylenol #3 Tab*), 1 TAB ORAL Q6H PRN for For Pain Patient History Healthcare decision maker Resuscitation status Full Code Advanced Directive on File Past Medical/Surgical History Past Medical/Surgical History: (1) Diabetes (2) HTN (hypertension) (3) Neuropathy Review of Systems All Other Systems: negative except mentioned in HPI Physical Exam General Appearance: WD/WN Lines, tubes and drains: peripheral HEENT: normocephalic, atraumatic Neck: normal alignment, supple Respiratory/Chest: chest wall non-tender, lungs clear, normal breath sounds Breasts: no masses Cardiovascular/Chest: normal rate Abdomen: normal bowel sounds, non tender Genitourinary/Rectal: normal genital exam Extremities: normal range of motion Last 24 Hour Vital Signs Date Time Temp Pulse Resp B/P (MAP) Pulse Ox O2 Delivery O2 Flow Rate FiO2 06/14/17 12:25 97.9 122 23 137/87 100 Room Air 97.9 06/14/17 12:20 122 23 137/87 100 Room Air 06/14/17 11:36 108 180/105 06/14/17 11:15 97.9 106 24 173/106 100 Room Air 97.9 06/14/17 10:57 125 208/105 06/14/17 10:41 98.1 128 24 208/102 100 Room Air 98.1 06/14/17 10:19 205/102 06/14/17 10:13 98.1 85 24 205/102 100 Room Air 98.1 06/14/17 09:42 98.1 06/14/17 09:41 216/121 06/14/17 09:31 98.1 91 26 215/98 100 Room Air 98.1 06/14/17 09:12 98.8 06/14/17 08:40 83 26 Room Air 06/14/17 08:40 98.8 82 24 204/105 100 Room Air 98.8 06/14/17 08:30 98.8 83 26 212/103 100 Room Air 98.8 Laboratory Tests Test 06/14/17 08:40 06/14/17 09:50 Urine Color Pale yellow Urine Appearance Clear Urine pH 5 (4.5-8.0) Urine Specific [place] 1.010 (1.005-1.035) Urine Protein 2+ (NEGATIVE) H Urine Glucose (UA) 4+ (NEGATIVE) H Urine Ketones 4+ (NEGATIVE) H Urine Occult Blood Negative (NEGATIVE) Urine Nitrite Negative (NEGATIVE) Urine Bilirubin Negative (NEGATIVE) Urine Urobilinogen Normal MG/DL (0.0-1.0) Urine Leukocyte Esterase Negative (NEGATIVE) Urine RBC 0-2 /HPF (0 - 2) Urine WBC 0-2 /HPF (0 - 2) Urine Squamous Epithelial Cells Occasional /LPF Urine Bacteria Occasional /HPF (NONE) White Blood Count 8.4 K/UL (4.8-10.8) Red Blood Count 4.72 M/UL (4.20-5.40) Hemoglobin 14.6 G/DL (12.0-16.0) Hematocrit 41.0 % (37.0-47.0) Mean Corpuscular Volume 87 FL (80-99) Mean Corpuscular Hemoglobin 30.9 PG (27.0-31.0) Mean Corpuscular Hemoglobin Concent 35.5 G/DL (32.0-36.0) Red Cell Distribution Width 11.3 % (11.6-14.8) L Platelet Count 284 K/UL (150-450) Mean Platelet Volume 6.6 FL (6.5-10.1) Neutrophils (%) (Auto) 75.5 % (45.0-75.0) H Lymphocytes (%) (Auto) 19.3 % (20.0-45.0) L Monocytes (%) (Auto) 3.7 % (1.0-10.0) Eosinophils (%) (Auto) 0.7 % (0.0-3.0) Basophils (%) (Auto) 0.8 % (0.0-2.0) Prothrombin Time 10.0 SEC (9.30-11.50) Prothromb Time International Ratio 1.0 (0.9-1.1) Activated Partial Thromboplast Time 24 SEC (23-33) Sodium Level 129 MMOL/L (136-145) L Potassium Level 3.9 MMOL/L (3.5-5.1) Chloride Level 96 MMOL/L (98-107) L Carbon Dioxide Level 18 MMOL/L (21-32) L Anion Gap 15 mmol/L (5-15) Blood Urea Nitrogen 20 mg/dL (7-18) H Creatinine 0.6 MG/DL (0.55-1.30) Estimat Glomerular Filtration Rate > 60 mL/min (>60) Glucose Level 311 MG/DL (74-106) H Calcium Level 10.3 MG/DL (8.5-10.1) H Total Bilirubin 0.8 MG/DL (0.2-1.0) Aspartate Amino Transf (AST/SGOT) 14 U/L (15-37) L Alanine Aminotransferase (ALT/SGPT) 34 U/L (12-78) Alkaline Phosphatase 67 U/L (46-116) Total Creatine Kinase 23 U/L (26-308) L Troponin I 0.000 ng/mL (0.000-0.056) Pro-B-Type Natriuretic Peptide 101 pg/mL (0-125) Total Protein 7.6 G/DL (6.4-8.2) Albumin 3.9 G/DL (3.4-5.0) Globulin 3.7 g/dL Albumin/Globulin Ratio 1.1 (1.0-2.7) Lipase 132 U/L (73-393) Height (Feet): 5 Height (Inches): 4.00 Weight (Pounds): 147 Medications Current Medications Medications (Trade) Dose Ordered Sig/Ramana Route PRN Reason Start Time Stop Time Status Last Admin Dose Admin Acetaminophen (Tylenol) 650 mg Q4H PRN ORAL T>100.5 06/14/17 13:45 07/14/17 13:44 Albuterol/ Ipratropium (Albuterol/ Ipratropium) 3 ml Q4H PRN HHN Shortness of Breath 06/14/17 13:45 06/19/17 13:44 Aspirin (ASA) 162 mg DAILY ORAL 06/15/17 09:00 07/15/17 08:59 Atorvastatin Calcium (Lipitor) 10 mg BEDTIME ORAL 06/14/17 21:00 07/14/17 20:59 Dextrose (Dextrose 50%) 50 ml STAT PRN IV Hypoglycemia 06/14/17 13:45 07/14/17 13:44 Diltiazem HCl (Cardizem) 10 mg EVERY HOUR PRN IV heart rate more than 120BPM 06/14/17 13:45 07/14/17 13:44 Enalaprilat (Vasotec) 2.5 mg Q6H PRN IV sbp more than 160mmHg 06/14/17 13:45 07/14/17 13:44 Gabapentin (Neurontin) 300 mg THREE TIMES A DAY ORAL 06/14/17 18:00 07/14/17 17:59 Heparin Sodium (Porcine) (Heparin 5000 units/ml) 5,000 units EVERY 8 HOURS SUBQ 06/14/17 14:00 07/14/17 13:59 Insulin Aspart (NovoLOG) BEFORE MEALS AND HS SUBQ 06/14/17 16:30 07/14/17 16:29 Lisinopril (Zestril) 5 mg BID ORAL 06/14/17 18:00 07/14/17 17:59 Morphine Sulfate (Morphine Sulfate) 2 mg Q4H PRN IVP Severe Pain (Pain Scale 7-10) 06/14/17 13:45 06/21/17 13:44 Nitroglycerin (Ntg) 0.4 mg Q5MIN X 3 DOSES PRN SL Prn Chest Pain 06/14/17 14:00 07/14/17 13:59 Ondansetron HCl (Zofran) 4 mg Q6H PRN IVP Nausea & Vomiting 06/14/17 13:45 07/14/17 13:44 Pantoprazole (Protonix) 40 mg DAILY ORAL 06/15/17 09:00 07/15/17 08:59 Polyethylene Glycol (Miralax) 17 gm DAILYPRN PRN ORAL Constipation 06/14/17 13:45 07/14/17 13:44 Sitagliptin Phosphate (Januvia) 100 mg ACBREAKFAST ORAL 06/15/17 06:30 07/15/17 06:29 Sodium Chloride 1,000 ml @ 300 mls/hr Q3H20M IV 06/14/17 08:45 07/14/17 08:44 06/14/17 12:24 Temazepam (Restoril) 15 mg HSPRN PRN ORAL Insomnia 06/14/17 21:00 06/21/17 20:59 Assessment/Plan Problem List: (1) Hypertensive urgency ICD Codes: I16.0 - Hypertensive urgency SNOMED: 687701484 (2) Persistent vomiting ICD Codes: R11.10 - Vomiting, unspecified SNOMED: 442302844 (3) Diabetes ICD Codes: E11.9 - Type 2 diabetes mellitus without complications SNOMED: 05964598 Qualifiers: Qualified Codes: E11.40 - Type 2 diabetes mellitus with diabetic neuropathy , unspecified (4) HTN (hypertension) ICD Codes: I10 - Essential (primary) hypertension SNOMED: 99341367 (5) Neuropathy ICD Codes: G62.9 - Polyneuropathy, unspecified SNOMED: 082864098 Assessment/Plan quality assurance monitor final BP, sliding scale diabetic diet antiemetics Donaldo Villegas MD Jun 14, 2017 14:24
[2017-06-14] MEDS: Heparin 5000 units/ml inj SUBQ SCH ×2 (15:14→22:00)
[2017-06-14] MEDS: Enalaprilat 2.5mg/2ml Inj IV PRN (16:27)
[2017-06-14] MEDS: NovoLOG Insulin Flexpen SUBQ SCH ×2 (17:51→22:12)
[2017-06-14] MEDS ORDERED: Lisinopril 2.5mg tab ORAL SCH (18:00)
[2017-06-14] MEDS: dilTIAZem HCl 25mg/5ml Inj IV PRN (18:37)
[2017-06-14] MEDS ORDERED: Enalaprilat 2.5mg/2ml Inj IV PRN (22:00)
[2017-06-14] MEDS ORDERED: Labetalol 5mg/ml 20ml vial IV PRN (22:00)
[2017-06-15] VITALS (21 sets, daily range): BP systolic 93–189; BP diastolic 17–116
[2017-06-15] MEDS: Enalaprilat 2.5mg/2ml Inj IV PRN (03:27)
[2017-06-15] MEDS: NovoLOG Insulin Flexpen SUBQ SCH ×6 (05:22→20:51)
[2017-06-15] MEDS: Morphine Sulfate 4mg/ml Inj IVP PRN ×2 (05:53→07:00)
[2017-06-15] MEDS: Heparin 5000 units/ml inj SUBQ SCH ×3 (06:12→21:32)
[2017-06-15] MEDS: dilTIAZem HCl 25mg/5ml Inj IV PRN (06:18)
[2017-06-15] MEDS ORDERED: Nitroglycerin Subl 0.4mg tab SL PRN (07:15)
[2017-06-15 07:44] LABS: BASOPHILS % (AUTO) 0.8 % (0.0-2.0); EOSINOPHILS % (AUTO) 0.2 % (0.0-3.0); HEMATOCRIT 41.6 % (37.0-47.0); LYMPHOCYTES % (AUTO) 14.9 % (20.0-45.0); MEAN CORPUSCULAR VOLUME 89 FL (80-99); MONOCYTES % (AUTO) 4.4 % (1.0-10.0); NEUTROPHILS % (AUTO) 79.7 % (45.0-75.0); PLATELET COUNT 287 K/UL (150-450); RED BLOOD COUNT 4.69 M/UL (4.20-5.40); RED CELL DISTRIBUTION WIDTH 11.8 % (11.6-14.8); WHITE BLOOD COUNT 9.6 K/UL (4.8-10.8)
[2017-06-15] MEDS ORDERED: Labetalol 5mg/ml 20ml vial IV PRN (08:00)
[2017-06-15] MEDS ORDERED: dilTIAZem HCl 25mg/5ml Inj IV PRN (08:00)
[2017-06-15] MEDS: Lisinopril 2.5mg tab ORAL SCH ×2 (08:13→17:07)
[2017-06-15] MEDS: Aspirin Baby 81mg ORAL SCH (08:14)
[2017-06-15 08:24] LABS: CHOLESTEROL 189 MG/DL (< 200); HDL CHOLESTEROL 45 MG/DL (40-60); TRIGLYCERIDES 212 MG/DL (30-150)
[2017-06-15] MEDS ORDERED: Enalaprilat 2.5mg/2ml Inj IV PRN ×2 (09:00→09:27)
[2017-06-15] MEDS ORDERED: Aspirin Baby 81mg ORAL SCH (09:00)
[2017-06-15] MEDS ORDERED: Levemir Flexpen SUBQ SCH ×2 (09:00)
[2017-06-15] MEDS ORDERED: Albuterol/Ipratropium 3ml neb HHN PRN (09:45)
[2017-06-15] MEDS ORDERED: Morphine Sulfate 4mg/ml Inj IVP PRN (09:53)
--- NOTE | 2017-06-15 10:40 | Pulmonolgy Critical Care Note ---
Critical Care - Asmt/Plan Problems: (1) Hypertensive urgency (2) Hyponatremia (3) Diabetes (4) Persistent vomiting (5) Hyperglycemia Respiratory: monitor respiratory rate, adjust FIO2, CXR Cardiac: continue to monitor HR/BP Renal: F/U I&O Infectious Disease: check cultures Gastrointestinal: continue feedings/current rate Endocrine: monitor blood sugar Hematologic: monitor H/H, transfuse if hgb<8.5 Neurologic: PRN Ativan Affect: PRN ativan Prophylaxis: Protonix Notes Reviewed: logging equipment operator, renal Discussed with: nurses, consultants, case managerscar rental agency manager - Objective Last 24 Hour Vital Signs Date Time Temp Pulse Resp B/P (MAP) Pulse Ox O2 Delivery O2 Flow Rate FiO2 06/15/17 10:00 108 20 154/88 100 Nasal Cannula 2.0 06/15/17 09:00 98.0 101 20 143/78 100 Nasal Cannula 2.0 98.0 06/15/17 08:14 127 183/106 06/15/17 08:13 183/106 06/15/17 08:10 127 183/106 06/15/17 08:00 128 30 183/106 100 Nasal Cannula 2.0 06/15/17 08:00 130 06/15/17 07:45 131 18 Room Air 06/15/17 07:00 120 22 144/84 100 Nasal Cannula 2.0 06/15/17 06:18 128 180/111 06/15/17 06:00 115 27 140/78 100 Nasal Cannula 2.0 06/15/17 05:34 97 Nasal Cannula 2.0 28 06/15/17 05:33 Nasal Cannula 2.0 28 06/15/17 05:00 117 27 164/85 100 Nasal Cannula 2.0 06/15/17 04:24 180/111 06/15/17 04:00 97.3 122 19 189/116 100 Room Air 97.3 06/15/17 04:00 128 06/15/17 03:27 161/85 06/15/17 00:00 106 06/15/17 00:00 97.7 115 19 117/78 99 Room Air 97.7 06/14/17 21:50 97.8 115 20 130/80 100 Room Air 97.8 06/14/17 21:05 98.1 122 24 185/110 100 Room Air 98.1 06/14/17 20:18 121 18 Room Air 06/14/17 20:00 97.5 121 20 172/90 100 Room Air 97.5 06/14/17 20:00 133 06/14/17 18:37 127 167/89 06/14/17 17:50 163/84 06/14/17 16:27 163/84 06/14/17 16:00 97.9 118 23 163/84 100 Room Air 97.9 06/14/17 16:00 133 06/14/17 12:25 97.9 122 23 137/87 100 Room Air 97.9 06/14/17 12:20 122 23 137/87 100 Room Air 06/14/17 11:36 108 180/105 06/14/17 11:15 97.9 106 24 173/106 100 Room Air 97.9 06/14/17 10:57 125 208/105 06/14/17 10:41 98.1 128 24 208/102 100 Room Air 98.1 Status: awake Condition: improving HEENT: atraumatic Neck: full ROM Lungs: chest wall tender Heart: HR/BP unstable Abdomen: soft, active bowel sounds Extremities: no C/C/E Accucheck: 305 Critical Care - Subjective ROS Limited/Unobtainable: No Interval Events: transferred to ICU b/o of uncontrolled BP, tachycardia and persistant nausea Condition: critical EKG Rhythm: Sinus Rhythm FI02: 28 Sputum Amount: None I&O: Intake and Output 06/14/17 06/15/17 19:00 07:00 Intake Total 0 ml Output Total 100 ml 0 ml Balance -100 ml 0 ml Intake Oral 0 ml Output Urine Total 0 ml Emesis 100 ml # Voids 1 # Bowel Movements 2 CXR: clint Labs: Laboratory Tests Test 06/15/17 06:45 White Blood Count 9.6 K/UL (4.8-10.8) Red Blood Count 4.69 M/UL (4.20-5.40) Hemoglobin 15.0 G/DL (12.0-16.0) Hematocrit 41.6 % (37.0-47.0) Mean Corpuscular Volume 89 FL (80-99) Mean Corpuscular Hemoglobin 32.0 PG (27.0-31.0) H Mean Corpuscular Hemoglobin Concent 36.0 G/DL (32.0-36.0) Red Cell Distribution Width 11.8 % (11.6-14.8) Platelet Count 287 K/UL (150-450) Mean Platelet Volume 6.6 FL (6.5-10.1) Neutrophils (%) (Auto) 79.7 % (45.0-75.0) H Lymphocytes (%) (Auto) 14.9 % (20.0-45.0) L Monocytes (%) (Auto) 4.4 % (1.0-10.0) Eosinophils (%) (Auto) 0.2 % (0.0-3.0) Basophils (%) (Auto) 0.8 % (0.0-2.0) Prothrombin Time 10.4 SEC (9.30-11.50) Prothromb Time International Ratio 1.0 (0.9-1.1) Activated Partial Thromboplast Time 23 SEC (23-33) Troponin I 0.000 ng/mL (0.000-0.056) C-Reactive Protein, Quantitative 1.2 mg/dL (0.00-0.90) H Triglycerides Level 212 MG/DL (30-150) H Cholesterol Level 189 MG/DL (< 200) LDL Cholesterol 122 mg/dL (<100) H HDL Cholesterol 45 MG/DL (40-60) Cholesterol/HDL Ratio 4.2 (3.3-4.4) Thyroid Stimulating Hormone (TSH) 0.559 uiU/mL (0.358-3.740) Donaldo Villegas MD Jun 15, 2017 10:40
[2017-06-15] MEDS ORDERED: NovoLOG Insulin Flexpen SUBQ SCH (11:50)
--- NOTE | 2017-06-15 12:55 | GI Initial Consult Note ---
History of Present Illness General Date patient seen: Jun 15, 2017 Time patient seen: 12:50 Reason for Hospitalization: Chest Pain Referring physician: LINDA TORRES Reason for Consultation: N/V Present Illness HPI The patient presents with vomiting and chest pain. This began yesterday. She was recently discharged on Thursday for vomiting and hypertension. She was unable to fill her prescriptions mainly Reglan. She's unable to take her blood pressure medication. The pain is 7/10 in her chest and pressure. It does not radiate and has been constant. She was admitted to the hospital because her blood pressures out of control and she was vomiting. Patient has history of diabetes. She is on oral medications and not insulin. She is a history of neuropathy. Her stools have been loose however there is no diarrhea. The vomiting she's and doing does not have any blood or coffee grounds. The nausea is severe. She feels weak and is anxious. She was admitted in early April with hyperglycemia, metabolic acidosis, tachycardia. Treated with IV hydration and insulin. [place] to have pyelonephritis at that time treated with antibiotics. GI consulted for persistent vomiting. Pt seen, awake A&Ox4 NAD. States her DM medication has not been working. Denies any N/V at this time, c/o of hunger. Patient recently discharged last week in stable condition. stated she was unable to fill her Reglan Rx, and began to have severe episodes and brought to the ED by her son. No loss of consciousness. No dizziness. She had abdominal pain as well with some nausea and vomiting. Patient previous positive for marijuana. Presents today with hyperglycemia and leukocytosis. KUB negative. Unknown history of endoscopy/colonoscopy. Home Meds Active Scripts Acetaminophen With Codeine (T#3) (TYLENOL #3 TAB*) Y Tab, 1 TAB ORAL Q6H PRN for For Pain, #9 TAB Prov:Katherin White P.A. 04/04/17 Trimethoprim/Sulfamethoxazole 160/800* (BACTRIM DS TABLET*) 1 Each Tablet, 1 TAB ORAL TWICE A DAY for 14 Days, #28 TAB Prov:Katherin White P.A. 18 Trimethoprim/Sulfamethoxazole (Bactrim Ds Tablet) 1 Each Tablet, 1 TAB ORAL TWICE A DAY for 10 Days, TAB Prov:Donaldo Villegas MD 12/20/15 Levofloxacin* (LEVOFLOXACIN*) 750 Mg Tablet, 750 MG ORAL DAILY for 7 Days, #7 TAB Prov:HUONG PAIGE M.D. 12/16/15 Reported Medications Metoclopramide Hcl* (METOCLOPRAMIDE HCL*) 5 Mg Tablet, 5 MG ORAL EVERY 6 HOURS, TAB 06/12/17 Lisinopril (LISINOPRIL*) 5 Mg Tablet, 5 MG ORAL BID, TAB 06/12/17 Sitagliptin (Januvia) 100 Mg Tablet, 100 MG ORAL ACBREAKFAST, TAB 06/12/17 Metformin Hcl* (METFORMIN HCL*) 850 Mg Tablet, 850 MG ORAL TID, TAB 04/04/17 Glipizide* (GLUCOTROL*) 10 Mg Tablet, 10 MG ORAL BID, #10 TAB 0 Refills 04/04/17 Gabapentin* (GABAPENTIN*) 300 Mg Capsule, 300 MG ORAL THREE TIMES A DAY, CAP 0 Refills 12/16/15 Glyburide/Metformin Hcl (GLYBURIDE-METFORMIN 5-500 MG) 1 Each Tablet, 1 EACH PO BID, TAB 12/16/15 Atorvastatin Calcium* (ATORVASTATIN CALCIUM*) 20 Mg Tablet, 10 MG ORAL BEDTIME, TAB 12/16/15 Med list reviewed/reconciled: Yes Allergies: Coded Allergies: NO KNOWN ALLERGIES (Verified Allergy, Unknown, 05/01/17) Patient History History Provided By: Patient, Medical Record PMH Narrative Past Medical History: see triage record, old chart reviewed Social History: Denies: smoking, alcohol use Social History Narrative with son Last Menstrual Period: Unk Reviewed Nursing Documentation: PMH: Agreed; PSxH: Agreed Nursing Documentation-PMH Hx Cardiac Problems: No Hx Hypertension: Yes Hx Diabetes: Yes 10+ years Hx Cancer: No Hx Gastrointestinal Problems: No Hx Neurological Problems: Yes - Neuropathy, Migraines Review of Systems All Other Systems: negative except mentioned in HPI Physical Exam Vital Signs Date Time Temp Pulse Resp B/P (MAP) Pulse Ox O2 Delivery O2 Flow Rate FiO2 06/14/17 08:30 98.8 83 26 212/103 100 Room Air 98.8 06/15/17 05:00 2.0 06/15/17 05:33 28 Sp02 EP Interpretation: reviewed, normal Labs Laboratory Tests Test 06/15/17 06:45 White Blood Count 9.6 K/UL (4.8-10.8) Red Blood Count 4.69 M/UL (4.20-5.40) Hemoglobin 15.0 G/DL (12.0-16.0) Hematocrit 41.6 % (37.0-47.0) Mean Corpuscular Volume 89 FL (80-99) Mean Corpuscular Hemoglobin 32.0 PG (27.0-31.0) H Mean Corpuscular Hemoglobin Concent 36.0 G/DL (32.0-36.0) Red Cell Distribution Width 11.8 % (11.6-14.8) Platelet Count 287 K/UL (150-450) Mean Platelet Volume 6.6 FL (6.5-10.1) Neutrophils (%) (Auto) 79.7 % (45.0-75.0) H Lymphocytes (%) (Auto) 14.9 % (20.0-45.0) L Monocytes (%) (Auto) 4.4 % (1.0-10.0) Eosinophils (%) (Auto) 0.2 % (0.0-3.0) Basophils (%) (Auto) 0.8 % (0.0-2.0) Prothrombin Time 10.4 SEC (9.30-11.50) Prothromb Time International Ratio 1.0 (0.9-1.1) Activated Partial Thromboplast Time 23 SEC (23-33) Troponin I 0.000 ng/mL (0.000-0.056) C-Reactive Protein, Quantitative 1.2 mg/dL (0.00-0.90) H Triglycerides Level 212 MG/DL (30-150) H Cholesterol Level 189 MG/DL (< 200) LDL Cholesterol 122 mg/dL (<100) H HDL Cholesterol 45 MG/DL (40-60) Cholesterol/HDL Ratio 4.2 (3.3-4.4) Thyroid Stimulating Hormone (TSH) 0.559 uiU/mL (0.358-3.740) General Appearance: well appearing, no apparent distress, alert Head: normocephalic EENT: PERRL/EOMI, normal ENT inspection Neck: supple Respiratory: normal breath sounds, no respiratory distress Cardiovascular: normal rate Gastrointestinal: normal inspection, non tender, soft, normal bowel sounds, non -distended Rectal: deferred Genitourinary: no CVA tenderness Musculoskeletal: normal inspection, back normal Neurologic: normal inspection, alert, oriented x3, responsive Psychiatric: normal inspection, judgement/insight normal, memory normal Skin: normal inspection, normal color, no rash, warm/dry, palpation normal, well hydrated Lymphatic: normal inspection, no adenopathy Current Medications Current Medications Medications (Trade) Dose Ordered Sig/Ramana Route PRN Reason Start Time Stop Time Status Last Admin Dose Admin Acetaminophen (Tylenol) 650 mg Q4H PRN ORAL T>100.5 06/15/17 09:45 07/14/17 13:44 Albuterol/ Ipratropium (Albuterol/ Ipratropium) 3 ml Q4H PRN HHN Shortness of Breath 06/15/17 09:45 06/19/17 13:44 Alprazolam (Xanax) 0.5 mg Q6H PRN ORAL For Anxiety 06/15/17 11:00 06/22/17 10:59 Aspirin (ASA) 162 mg DAILY ORAL 06/15/17 09:00 07/15/17 08:59 06/15/17 08:14 Atorvastatin Calcium (Lipitor) 10 mg BEDTIME ORAL 06/15/17 21:00 07/14/17 20:59 Dextrose (Dextrose 50%) 25 ml STAT PRN IV Hypoglycemia 06/16/17 06:45 07/15/17 06:44 Dextrose (Dextrose 50%) 50 ml STAT PRN IV Hypoglycemia 06/16/17 06:45 07/15/17 06:44 Diltiazem HCl (Cardizem) 10 mg EVERY HOUR PRN IV heart rate more than 120BPM 06/15/17 08:00 07/14/17 13:44 06/15/17 08:14 Enalaprilat (Vasotec) 2.5 mg EVERY 4 HOURS PRN IV sbp more than 200 06/15/17 09:00 07/14/17 21:59 Enalaprilat (Vasotec) 2.5 mg Q6H PRN IV sbp more than 160mmHg 06/15/17 09:27 07/14/17 09:26 Gabapentin (Neurontin) 300 mg THREE TIMES A DAY ORAL 06/15/17 09:00 07/14/17 17:59 06/15/17 08:12 Heparin Sodium (Porcine) (Heparin 5000 units/ml) 5,000 units EVERY 8 HOURS SUBQ 06/15/17 14:00 07/14/17 13:59 Hydralazine HCl (Apresoline) 20 mg Q4H PRN IV sbp more than 160 06/15/17 10:00 07/14/17 21:59 Insulin Aspart (NovoLOG) BEFORE MEALS AND HS SUBQ 06/15/17 11:30 07/14/17 16:29 06/15/17 11:10 Insulin Aspart (NovoLOG) 4 units NOVOTIAC SUBQ 06/15/17 11:50 07/15/17 11:49 06/15/17 11:09 Insulin Detemir (Levemir) 12 units DAILY SUBQ 06/15/17 09:00 07/15/17 08:59 06/15/17 09:00 Labetalol HCl (Normodyne) 20 mg EVERY HOUR PRN IV sbo more than 180 06/15/17 08:00 07/14/17 21:59 06/15/17 08:10 Lisinopril (Zestril) 5 mg BID ORAL 06/15/17 09:00 07/14/17 17:59 06/15/17 08:13 Metoclopramide HCl (Reglan) 10 mg Q6H PRN ORAL Nausea & Vomiting 06/15/17 11:00 07/15/17 10:59 06/15/17 11:04 Morphine Sulfate (Morphine Sulfate) 2 mg Q4H PRN IVP Severe Pain (Pain Scale 7-10) 06/15/17 09:53 06/21/17 09:52 06/15/17 11:04 Nitroglycerin (Ntg) 0.4 mg Q5MIN X 3 DOSES PRN SL Prn Chest Pain 06/15/17 07:15 07/14/17 13:59 Pantoprazole (Protonix) 40 mg DAILY ORAL 06/15/17 09:00 07/15/17 08:59 06/15/17 08:12 Polyethylene Glycol (Miralax) 17 gm DAILYPRN PRN ORAL Constipation 06/15/17 13:45 07/14/17 13:44 Sitagliptin Phosphate (Januvia) 100 mg ACBREAKFAST ORAL 06/15/17 09:00 07/15/17 08:59 06/15/17 08:12 Sodium Chloride 1,000 ml @ 75 mls/hr [id number] IV 06/15/17 10:45 07/15/17 10:44 06/15/17 11:03 Temazepam (Restoril) 15 mg HSPRN PRN ORAL Insomnia 06/15/17 21:00 06/21/17 20:59 GI: Plan Problems: (1) Gastroparesis (2) Cannabinoid hyperemesis syndrome (3) DM (diabetes mellitus) (4) Persistent vomiting Plan CT AP during last admission, see full report >> fatty liver. hx of cyclic vomiting reglan ATC for persistent vomiting DM management adv diet as tolerated ppi + H2B qhs fu labs will consider endoscopy if needed, or gastric emptying study ok for downgrade to tele for uncontrolled BP Discussed with Dr. Disla. Thank you for this patient referral, we will follow. Jeanine Alejandro N.P. Jun 15, 2017 12:55
[2017-06-15] MEDS ORDERED: Miralax 17gm pkt ORAL PRN (13:45)
[2017-06-15] MEDS: ALPRAZolam 0.5mg tab ORAL PRN (14:20)
--- NOTE | 2017-06-15 17:30 | Consultation ---
DATE OF CONSULTATION: 06/15/2017 ENDOCRINOLOGY CONSULTATION CONSULTING PHYSICIAN: Bryce Murphy M.D. REASON FOR CONSULTATION: Diabetic ketoacidosis. HISTORY OF PRESENT ILLNESS: The patient is a 56-year-old female with history of insulin-dependent diabetes with multiple admissions to [facility], presented to the hospital with chest pain and vomiting. She was found to have diabetic ketoacidosis. Evaluated by Dr. Villegas. Admitted to the ICU and started her on IV fluid and IV insulin. Admitted to the ICU, seen and evaluated by Dr. Villegas. I was called for the management of diabetic ketoacidosis. Laboratory values: WBC 8.4, hemoglobin 14, hematocrit 41, and platelets of 294,000. Sodium 129, potassium 3.9, chloride 96, bicarbonate 19, BUN 20, creatinine 0.6, anion gap of 15, blood glucose of 311, and calcium of 10.1. REVIEW OF SYSTEMS: As per HPI. PAST MEDICAL HISTORY: Reviewed. PAST SURGICAL HISTORY: Refer to recent note. MEDICATIONS: Refer to recent note. PHYSICAL EXAMINATION: VITAL SIGNS: Stable. NECK: No JVD. HEART: Regular. LUNGS: Clear. ABDOMEN: Positive bowel sounds. EXTREMITIES: No clubbing, cyanosis, or edema. DIAGNOSES: 1. Diabetes, out of control. 2. Chest pain. PLAN: 1. Continue Januvia 100 mg daily. 2. Add Levemir 12 units daily. 3. Add NovoLog 4 units before each meal. 4. Further adjustment according to blood glucose values. Bryce Murphy M.D. DR: KERRY/SIENNA JOB#: [id number] CC: PARUL
--- NOTE | 2017-06-15 20:45 | History and Physical Report ---
DATE OF ADMISSION: 06/14/2017 TIME: 1 p.m. CONSULTANTS: 1. Raoul Carlson M.D. 2. Kavon Disla M.D. 3. Donaldo Villegas M.D. 4. Bryce Murphy M.D. CHIEF COMPLAINT: Nausea, vomiting, diabetes, and DKA. BRIEF HISTORY: The patient is a 56-year-old female, who is here hospitalized for about a week ago. Apparently, was discharged and did not have enough money to get her home medications. The patient became very weak and lethargic, came to [place], diagnosed with DKA and neuropathy, nausea and vomiting admitted to ICU for further care. Currently , anxious in bed, slight short of breath. No complaint. REVIEW OF SYSTEMS: No chest pain. Slight short of breath. Slight nausea and vomiting, no diarrhea. PAST MEDICAL HISTORY: Hypertension, diabetes, neuropathy. PAST SURGICAL HISTORY: None. ALLERGIES: Denies. SOCIAL HISTORY: No smoking. No alcohol. Positive marijuana use. OBJECTIVE: GENERAL: Anxious in bed, oriented x3, no acute distress. VITAL SIGNS: Temperature 98 degrees, pulse 110, respirations 18, blood pressure 129/96. CARDIOVASCULAR: No murmur. LUNGS: Distant and clear. ABDOMEN: Bowel sounds positive. Nontender and nondistended. EXTREMITIES: No cyanosis or edema. NEUROLOGIC: The patient moves all extremities, slightly weak. LABORATORY AND DIAGNOSTIC DATA: CBC is normal. BMP shows sodium 129, chloride 96, CO2 18, BUN 20 and glucose 311. Troponin 0.00 and INR is 1.0 and PTT is 24. Urinalysis show 2+ protein, 4+ glucose, and 4+ ketone. MEDICATIONS: IV fluid, Restoril, Lipitor, Pepcid, heparin, MiraLAX, Reglan, Zofran, NovoLog, , morphine, and Vasotec. ASSESSMENT: 1. Nausea and vomiting. 2. DKA. 3. Hypertension. 4. Diabetes. 5. Neuropathy. PLAN: Blood pressure, blood sugar, and pain control. Dietary follow. Resume home medications. IV fluids. CBC and BMP in the morning. Dr. Zurita, Dr. Disla, Dr. Murphy, and Dr. Villegas to consult. Clemente Barrow D.O. DR: JOSE JOB#: [id number] CC:
--- NOTE | 2017-06-15 21:04 | Cardiology Report ---
APPROVED REPORT EXAM: Two-dimensional and M-mode echocardiogram with Doppler and color Doppler. INDICATION LV FUNCTION M-Mode DIMENSIONS IVSd0.9 (0.7-1.1cm)Left Atrium (MM)2.9 (1.6-4.0cm) LVDd5.5 (3.5-5.6cm)Aortic Root3.1 (2.0-3.7cm) PWd1.2 (0.7-1.1cm)Aortic Cusp Exc.1.7 (1.5-2.0cm) IVSs1.6 cm LVDs3.7 (2.5-4.0cm) PWs1.2 cm Normal left ventricular chamber size, systolic function and wall motion. Left ventricular ejection fraction estimated to be 65-70 %. No evidence of left ventricular hypertrophy. No evidence of pericardial effusion. All other cardiac chamber sizes are within normal limits. Focal aortic valve sclerosis with adequate cusp excursion. Mildly Thickened mitral valve leaflets with normal excursion. Mildly Mitral annulus and aortic root calcification. Normal pulmonic valve structure. Normal tricuspid valve structure. IVC at normal size with physiologic collapse. A color flow and spectral Doppler study was performed and revealed: No aortic regurgitation. Trace mitral regurgitation. Mitral diastolic velocities suggest reduced left ventricular relaxation c/w mild LV diastolic dysfunction (Grade I ). Trace tricuspid regurgitation. Tricuspid systolic velocities suggests peak right ventricular systolic pressure of 23 mmHg consistent with mild, moderate, severe pulmonary hypertension
--- NOTE | 2017-06-15 21:24 | Cardiology Report ---
APPROVED REPORT EKG Measurement Heart [id number] Normal sinus rhythm Normal ECG
--- NOTE | 2017-06-15 21:39 | Cardiology Report ---
APPROVED REPORT EKG Measurement Heart [id number] Sinus tachycardia Otherwise normal ECG
[2017-06-16] VITALS (24 sets, daily range): BP systolic 100–135; BP diastolic 60–85
[2017-06-16 06:02] LABS: BASOPHILS % (AUTO) 1.1 % (0.0-2.0); EOSINOPHILS % (AUTO) 2.4 % (0.0-3.0); HEMATOCRIT 33.7 % (37.0-47.0); HEMOGLOBIN 12.6 G/DL (12.0-16.0); LYMPHOCYTES % (AUTO) 38.2 % (20.0-45.0); MEAN CORPUSCULAR VOLUME 88 FL (80-99); MONOCYTES % (AUTO) 7.6 % (1.0-10.0); NEUTROPHILS % (AUTO) 50.7 % (45.0-75.0); PLATELET COUNT 241 K/UL (150-450); RED BLOOD COUNT 3.84 M/UL (4.20-5.40); RED CELL DISTRIBUTION WIDTH 11.7 % (11.6-14.8); WHITE BLOOD COUNT 9.4 K/UL (4.8-10.8)
[2017-06-16] MEDS: NovoLOG Insulin Flexpen SUBQ SCH ×7 (06:04→21:26)
[2017-06-16] MEDS: Heparin 5000 units/ml inj SUBQ SCH ×3 (06:04→21:39)
[2017-06-16 06:11] LABS: ANION GAP 8 mmol/L (5-15); BLOOD UREA NITROGEN 13 mg/dL (7-18); CALCIUM 9.7 MG/DL (8.5-10.1); CARBON DIOXIDE 23 MMOL/L (21-32); CHLORIDE 97 MMOL/L (98-107); CREATININE 0.7 MG/DL (0.55-1.30); SODIUM 128 MMOL/L (136-145)
[2017-06-16 06:37] LABS: ALANINE AMINOTRANSFERASE 26 U/L (12-78); ALBUMIN 3.4 G/DL (3.4-5.0); ALBUMIN/GLOBULIN RATIO 1.1 (1.0-2.7); ALKALINE PHOSPHATASE 54 U/L (46-116); ASPARTATE AMINO TRANSFERASE 11 U/L (15-37); BILIRUBIN,TOTAL 0.5 MG/DL (0.2-1.0); PHOSPHORUS 2.7 MG/DL (2.5-4.9)
--- NOTE | 2017-06-16 07:43 | General Progress Note ---
Assessment/Plan Problem List: (1) DM (diabetes mellitus) ICD Codes: E11.9 - Type 2 diabetes mellitus without complications SNOMED: 60749126 Assessment/Plan increase Levemir to 16 units daily increase Novolog to 6 units ac tid continue NISS continue Januvia Subjective Allergies: Coded Allergies: NO KNOWN ALLERGIES (Verified Allergy, Unknown, 05/01/17) All Systems: reviewed and negative except above Subjective events noted Objective Last 24 Hour Vital Signs Date Time Temp Pulse Resp B/P (MAP) Pulse Ox O2 Delivery O2 Flow Rate FiO2 06/16/17 07:00 89 17 123/81 100 Nasal Cannula 2.0 06/16/17 06:00 88 17 132/69 100 Nasal Cannula 2.0 06/16/17 05:00 82 18 130/85 100 Nasal Cannula 2.0 06/16/17 04:00 72 06/16/17 04:00 98.5 87 18 111/67 100 Nasal Cannula 2.0 98.5 06/16/17 03:00 83 21 120/71 100 Nasal Cannula 2.0 06/16/17 02:00 90 19 135/82 100 Nasal Cannula 2.0 06/16/17 01:00 84 18 113/76 100 Nasal Cannula 2.0 06/16/17 00:00 74 06/16/17 00:00 98.1 86 19 100/60 100 Nasal Cannula 2.0 98.1 06/15/17 23:00 89 18 100/59 100 Nasal Cannula 2.0 06/15/17 22:00 94 18 100/60 100 Nasal Cannula 2.0 06/15/17 21:00 96 19 121/71 100 Nasal Cannula 2.0 06/15/17 20:00 97.9 96 17 121/17 100 Nasal Cannula 2.0 97.9 06/15/17 20:00 101 06/15/17 19:10 Nasal Cannula 2.0 28 06/15/17 19:10 100 Nasal Cannula 2.0 28 06/15/17 19:00 89 19 Nasal Cannula 2.0 28 06/15/17 19:00 89 19 100/63 100 Nasal Cannula 2.0 06/15/17 18:00 96 19 93/56 100 Nasal Cannula 2.0 06/15/17 17:07 105/55 06/15/17 17:00 104 19 100/58 100 Nasal Cannula 2.0 06/15/17 16:00 101 06/15/17 16:00 101 18 115/68 100 Nasal Cannula 2.0 06/15/17 15:00 106 18 122/66 100 Nasal Cannula 2.0 06/15/17 14:00 98.6 105 17 160/83 100 Nasal Cannula 2.0 98.6 06/15/17 13:00 110 18 129/96 100 Nasal Cannula 2.0 06/15/17 12:00 106 06/15/17 12:00 106 18 103/64 100 Nasal Cannula 2.0 06/15/17 11:00 106 20 157/87 100 Nasal Cannula 2.0 06/15/17 10:00 108 20 154/88 100 Nasal Cannula 2.0 06/15/17 09:00 98.0 101 20 143/78 100 Nasal Cannula 2.0 98.0 06/15/17 08:14 127 183/106 06/15/17 08:13 183/106 06/15/17 08:10 127 183/106 06/15/17 08:00 128 30 183/106 100 Nasal Cannula 2.0 06/15/17 08:00 130 06/15/17 07:45 131 18 Room Air Intake and Output 06/15/17 06/16/17 19:00 07:00 Intake Total 600 ml 225 ml Output Total 530 ml 300 ml Balance 70 ml -75 ml IV Total 600 ml 225 ml Output Urine Total 530 ml 300 ml Laboratory Tests 06/16/17 05:00: White Blood Count 9.4, Red Blood Count 3.84L, Hemoglobin 12.6, Hematocrit 33.7L , Mean Corpuscular Volume 88, Mean Corpuscular Hemoglobin 32.8H, Mean Corpuscular Hemoglobin Concent 37.4H, Red Cell Distribution Width 11.7, Platelet Count 241, Mean Platelet Volume 6.4L, Neutrophils (%) (Auto) 50.7, Lymphocytes (%) (Auto) 38.2, Monocytes (%) (Auto) 7.6, Eosinophils (%) (Auto) 2.4, Basophils (%) (Auto) 1.1, Erythrocyte Sedimentation Rate 17, Sodium Level 128L, Potassium Level 3.0L, Chloride Level 97L, Carbon Dioxide Level 23, Anion Gap 8, Blood Urea Nitrogen 13, Creatinine 0.7, Estimat Glomerular Filtration Rate > 60, Glucose Level 240H, Hemoglobin A1c 9.9H, Calcium Level 9.7, Phosphorus Level 2.7, Magnesium Level 1.4L, Total Bilirubin 0.5, Aspartate Amino Transf (AST/SGOT) 11L, Alanine Aminotransferase (ALT/SGPT) 26, Alkaline Phosphatase 54, Troponin I 0.000, C-Reactive Protein, Quantitative < 0.4, Total Protein 6.5, Albumin 3.4, Globulin 3.1, Albumin/Globulin Ratio 1.1 Height (Feet): 5 Height (Inches): 4.00 Weight (Pounds): 135 General Appearance: no apparent distress Neck: normal alignment Cardiovascular: normal rate Respiratory/Chest: lungs clear Abdomen: normal bowel sounds Objective Current Medications Medications (Trade) Dose Ordered Sig/Ramana Route PRN Reason Start Time Stop Time Status Last Admin Dose Admin Acetaminophen (Tylenol) 650 mg Q4H PRN ORAL T>100.5 06/15/17 09:45 07/14/17 13:44 Albuterol/ Ipratropium (Albuterol/ Ipratropium) 3 ml Q4H PRN HHN Shortness of Breath 06/15/17 09:45 06/19/17 13:44 Alprazolam (Xanax) 0.5 mg Q6H PRN ORAL For Anxiety 06/15/17 11:00 06/22/17 10:59 06/15/17 14:20 Aspirin (ASA) 162 mg DAILY ORAL 06/15/17 09:00 07/15/17 08:59 06/15/17 08:14 Atorvastatin Calcium (Lipitor) 10 mg BEDTIME ORAL 06/15/17 21:00 07/14/17 20:59 06/15/17 20:36 Cetylpyridinium Chloride (Cepacol) 1 lozg EVERY 2 HOURS PRN NYLA Throat irritation 06/15/17 14:00 07/15/17 13:59 06/15/17 14:20 Dextrose (Dextrose 50%) 25 ml STAT PRN IV Hypoglycemia 06/16/17 06:45 07/15/17 06:44 Dextrose (Dextrose 50%) 50 ml STAT PRN IV Hypoglycemia 06/16/17 06:45 07/15/17 06:44 Diltiazem HCl (Cardizem) 10 mg EVERY HOUR PRN IV heart rate more than 120BPM 06/15/17 08:00 07/14/17 13:44 06/15/17 08:14 Enalaprilat (Vasotec) 2.5 mg EVERY 4 HOURS PRN IV sbp more than 200 06/15/17 09:00 07/14/17 21:59 Enalaprilat (Vasotec) 2.5 mg Q6H PRN IV sbp more than 160mmHg 06/15/17 09:27 07/14/17 09:26 Famotidine (Pepcid) 20 mg BEDTIME ORAL 06/15/17 21:00 07/15/17 20:59 06/15/17 20:36 Gabapentin (Neurontin) 300 mg THREE TIMES A DAY ORAL 06/15/17 09:00 07/14/17 17:59 06/15/17 17:08 Heparin Sodium (Porcine) (Heparin 5000 units/ml) 5,000 units EVERY 8 HOURS SUBQ 06/15/17 14:00 07/14/17 13:59 06/16/17 06:04 Hydralazine HCl (Apresoline) 20 mg Q4H PRN IV sbp more than 160 06/15/17 10:00 07/14/17 21:59 Insulin Aspart (NovoLOG) BEFORE MEALS AND HS SUBQ 06/15/17 11:30 07/14/17 16:29 06/16/17 06:04 Insulin Aspart (NovoLOG) 4 units NOVOTIAC SUBQ 06/15/17 11:50 07/15/17 11:49 06/16/17 06:05 Insulin Detemir (Levemir) 12 units DAILY SUBQ 06/15/17 09:00 07/15/17 08:59 06/15/17 09:00 Labetalol HCl (Normodyne) 20 mg EVERY HOUR PRN IV sbo more than 180 06/15/17 08:00 07/14/17 21:59 06/15/17 08:10 Lisinopril (Zestril) 5 mg BID ORAL 06/15/17 09:00 07/14/17 17:59 06/15/17 17:07 Metoclopramide HCl (Reglan) 10 mg Q6H PRN ORAL Nausea & Vomiting 06/15/17 13:30 07/15/17 10:59 Morphine Sulfate (Morphine Sulfate) 2 mg Q4H PRN IVP Severe Pain (Pain Scale 7-10) 06/15/17 09:53 06/21/17 09:52 06/15/17 11:04 Nitroglycerin (Ntg) 0.4 mg Q5MIN X 3 DOSES PRN SL Prn Chest Pain 06/15/17 07:15 07/14/17 13:59 Ondansetron HCl (Zofran ODT) 4 mg Q6H PRN ORAL Nausea & Vomiting 06/15/17 13:00 07/15/17 12:59 06/15/17 14:20 Pantoprazole (Protonix) 40 mg DAILY ORAL 06/15/17 09:00 07/15/17 08:59 06/15/17 08:12 Polyethylene Glycol (Miralax) 17 gm DAILYPRN PRN ORAL Constipation 06/15/17 13:45 07/14/17 13:44 Sitagliptin Phosphate (Januvia) 100 mg ACBREAKFAST ORAL 06/15/17 09:00 07/15/17 08:59 06/16/17 06:01 Sodium Chloride 1,000 ml @ 75 mls/hr [id number] IV 06/15/17 10:45 07/15/17 10:44 06/16/17 00:31 Temazepam (Restoril) 15 mg HSPRN PRN ORAL Insomnia 06/15/17 21:00 06/21/17 20:59 Item Value Date Time Bedside Blood Glucose 259 mg/dl H 06/16/17 0605 Bedside Blood Glucose 231 mg/dl H 06/15/172050 Bedside Blood Glucose 298 mg/dl H 06/15/17 1740 Bedside Blood Glucose 324 mg/dl H 06/15/17 1130 Bedside Blood Glucose 305 mg/dl H 06/15/17 0900 Bedside Blood Glucose 290 mg/dl H 06/15/17 0625 BRODY BRAN Jun 16, 2017 07:43
[2017-06-16] MEDS: ALPRAZolam 0.5mg tab ORAL PRN (08:33)
[2017-06-16] MEDS: Aspirin Baby 81mg ORAL SCH (08:33)
[2017-06-16] MEDS: Lisinopril 2.5mg tab ORAL SCH ×2 (08:33→17:30)
[2017-06-16] MEDS ORDERED: Levemir Flexpen SUBQ SCH (09:00)
[2017-06-16] MEDS ORDERED: Potassium Chloride 40 MEQ in Sodium Chloride 500ML 550 ML IVPB ONE ×2 (10:00→10:30)
--- NOTE | 2017-06-16 10:31 | Pulmonology Progress Note ---
Assessment/Plan Problems: (1) Hypertensive urgency (2) Persistent vomiting (3) Diabetes (4) HTN (hypertension) (5) Neuropathy Assessment/Plan improving eating well BS better controlled BP is better controlled transfer to telemetry Subjective ROS Limited/Unobtainable: No Constitutional: Reports: no symptoms HEENT: Repors: no symptoms Respiratory: Reports: no symptoms Allergies: Coded Allergies: NO KNOWN ALLERGIES (Verified Allergy, Unknown, 05/01/17) Objective Last 24 Hour Vital Signs Date Time Temp Pulse Resp B/P (MAP) Pulse Ox O2 Delivery O2 Flow Rate FiO2 06/16/17 10:00 88 17 126/70 100 Nasal Cannula 2.0 06/16/17 09:00 87 17 120/68 100 Nasal Cannula 2.0 06/16/17 08:33 128/79 06/16/17 08:00 98.9 88 18 125/66 100 Nasal Cannula 2.0 98.9 06/16/17 08:00 70 06/16/17 07:30 96 18 Nasal Cannula 2.0 28 06/16/17 07:30 Nasal Cannula 2.0 28 06/16/17 07:30 98 Nasal Cannula 2.0 28 06/16/17 07:00 89 17 123/81 100 Nasal Cannula 2.0 06/16/17 06:00 88 17 132/69 100 Nasal Cannula 2.0 06/16/17 05:00 82 18 130/85 100 Nasal Cannula 2.0 06/16/17 04:00 72 06/16/17 04:00 98.5 87 18 111/67 100 Nasal Cannula 2.0 98.5 06/16/17 03:00 83 21 120/71 100 Nasal Cannula 2.0 06/16/17 02:00 90 19 135/82 100 Nasal Cannula 2.0 06/16/17 01:00 84 18 113/76 100 Nasal Cannula 2.0 06/16/17 00:00 74 06/16/17 00:00 98.1 86 19 100/60 100 Nasal Cannula 2.0 98.1 06/15/17 23:00 89 18 100/59 100 Nasal Cannula 2.0 06/15/17 22:00 94 18 100/60 100 Nasal Cannula 2.0 06/15/17 21:00 96 19 121/71 100 Nasal Cannula 2.0 06/15/17 20:00 97.9 96 17 121/17 100 Nasal Cannula 2.0 97.9 06/15/17 20:00 101 06/15/17 19:10 Nasal Cannula 2.0 28 06/15/17 19:10 100 Nasal Cannula 2.0 28 06/15/17 19:00 89 19 Nasal Cannula 2.0 28 06/15/17 19:00 89 19 100/63 100 Nasal Cannula 2.0 06/15/17 18:00 96 19 93/56 100 Nasal Cannula 2.0 06/15/17 17:07 105/55 06/15/17 17:00 104 19 100/58 100 Nasal Cannula 2.0 06/15/17 16:00 101 06/15/17 16:00 101 18 115/68 100 Nasal Cannula 2.0 06/15/17 15:00 106 18 122/66 100 Nasal Cannula 2.0 06/15/17 14:00 98.6 105 17 160/83 100 Nasal Cannula 2.0 98.6 06/15/17 13:00 110 18 129/96 100 Nasal Cannula 2.0 06/15/17 12:00 106 06/15/17 12:00 106 18 103/64 100 Nasal Cannula 2.0 06/15/17 11:00 106 20 157/87 100 Nasal Cannula 2.0 Intake and Output 06/15/17 06/16/17 19:00 07:00 Intake Total 600 ml 225 ml Output Total 530 ml 300 ml Balance 70 ml -75 ml IV Total 600 ml 225 ml Output Urine Total 530 ml 300 ml General Appearance: WD/WN HEENT: normocephalic, atraumatic Respiratory/Chest: chest wall non-tender, lungs clear Breasts: no masses Cardiovascular: normal rate Abdomen: normal bowel sounds, soft, non tender Genitourinary: normal external genitalia Extremities: no clubbing Skin: no rash 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, normal mood/affect Laboratory Tests 06/16/17 05:00: White Blood Count 9.4, Red Blood Count 3.84L, Hemoglobin 12.6, Hematocrit 33.7L , Mean Corpuscular Volume 88, Mean Corpuscular Hemoglobin 32.8H, Mean Corpuscular Hemoglobin Concent 37.4H, Red Cell Distribution Width 11.7, Platelet Count 241, Mean Platelet Volume 6.4L, Neutrophils (%) (Auto) 50.7, Lymphocytes (%) (Auto) 38.2, Monocytes (%) (Auto) 7.6, Eosinophils (%) (Auto) 2.4, Basophils (%) (Auto) 1.1, Erythrocyte Sedimentation Rate 17, Sodium Level 128L, Potassium Level 3.0L, Chloride Level 97L, Carbon Dioxide Level 23, Anion Gap 8, Blood Urea Nitrogen 13, Creatinine 0.7, Estimat Glomerular Filtration Rate > 60, Glucose Level 240H, Hemoglobin A1c 9.9H, Calcium Level 9.7, Phosphorus Level 2.7, Magnesium Level 1.4L, Total Bilirubin 0.5, Aspartate Amino Transf (AST/SGOT) 11L, Alanine Aminotransferase (ALT/SGPT) 26, Alkaline Phosphatase 54, Troponin I 0.000, C-Reactive Protein, Quantitative < 0.4, Total Protein 6.5, Albumin 3.4, Globulin 3.1, Albumin/Globulin Ratio 1.1 Current Medications Medications (Trade) Dose Ordered Sig/Ramana Route PRN Reason Start Time Stop Time Status Last Admin Dose Admin Acetaminophen (Tylenol) 650 mg Q4H PRN ORAL T>100.5 06/15/17 09:45 07/14/17 13:44 Albuterol/ Ipratropium (Albuterol/ Ipratropium) 3 ml Q4H PRN HHN Shortness of Breath 06/15/17 09:45 06/19/17 13:44 Alprazolam (Xanax) 0.5 mg Q6H PRN ORAL For Anxiety 06/15/17 11:00 06/22/17 10:59 06/16/17 08:33 Aspirin (ASA) 162 mg DAILY ORAL 06/15/17 09:00 07/15/17 08:59 06/16/17 08:33 Atorvastatin Calcium (Lipitor) 10 mg BEDTIME ORAL 06/15/17 21:00 07/14/17 20:59 06/15/17 20:36 Cetylpyridinium Chloride (Cepacol) 1 lozg EVERY 2 HOURS PRN NYLA Throat irritation 06/15/17 14:00 07/15/17 13:59 06/15/17 14:20 Dextrose (Dextrose 50%) 25 ml STAT PRN IV Hypoglycemia 06/16/17 06:45 07/15/17 06:44 Dextrose (Dextrose 50%) 50 ml STAT PRN IV Hypoglycemia 06/16/17 06:45 07/15/17 06:44 Diltiazem HCl (Cardizem) 10 mg EVERY HOUR PRN IV heart rate more than 120BPM 06/15/17 08:00 07/14/17 13:44 06/15/17 08:14 Enalaprilat (Vasotec) 2.5 mg EVERY 4 HOURS PRN IV sbp more than 200 06/15/17 09:00 07/14/17 21:59 Enalaprilat (Vasotec) 2.5 mg Q6H PRN IV sbp more than 160mmHg 06/15/17 09:27 07/14/17 09:26 Famotidine (Pepcid) 20 mg BEDTIME ORAL 06/15/17 21:00 07/15/17 20:59 06/15/17 20:36 Gabapentin (Neurontin) 300 mg THREE TIMES A DAY ORAL 06/15/17 09:00 07/14/17 17:59 06/16/17 08:38 Heparin Sodium (Porcine) (Heparin 5000 units/ml) 5,000 units EVERY 8 HOURS SUBQ 06/15/17 14:00 07/14/17 13:59 06/16/17 06:04 Hydralazine HCl (Apresoline) 20 mg Q4H PRN IV sbp more than 160 06/15/17 10:00 07/14/17 21:59 Insulin Aspart (NovoLOG) BEFORE MEALS AND HS SUBQ 06/15/17 11:30 07/14/17 16:29 06/16/17 06:04 Insulin Aspart (NovoLOG) 6 units NOVOTIAC SUBQ 06/16/17 11:50 07/15/17 11:49 Insulin Detemir (Levemir) 16 units DAILY SUBQ 06/16/17 09:00 07/15/17 08:59 06/16/17 09:06 Labetalol HCl (Normodyne) 20 mg EVERY HOUR PRN IV sbo more than 180 06/15/17 08:00 07/14/17 21:59 06/15/17 08:10 Lisinopril (Zestril) 5 mg BID ORAL 06/15/17 09:00 07/14/17 17:59 06/16/17 08:33 Magnesium Sulfate 100 ml @ 100 mls/hr Q1H IVPB 4/17/18 08:30 06/16/17 10:29 06/16/17 08:40 Metoclopramide HCl (Reglan) 10 mg Q6H PRN ORAL Nausea & Vomiting 06/15/17 13:30 07/15/17 10:59 Morphine Sulfate (Morphine Sulfate) 2 mg Q4H PRN IVP Severe Pain (Pain Scale 7-10) 06/15/17 09:53 06/21/17 09:52 06/15/17 11:04 Nitroglycerin (Ntg) 0.4 mg Q5MIN X 3 DOSES PRN SL Prn Chest Pain 06/15/17 07:15 07/14/17 13:59 Ondansetron HCl (Zofran ODT) 4 mg Q6H PRN ORAL Nausea & Vomiting 06/15/17 13:00 07/15/17 12:59 06/15/17 14:20 Pantoprazole (Protonix) 40 mg DAILY ORAL 06/15/17 09:00 07/15/17 08:59 06/16/17 08:33 Polyethylene Glycol (Miralax) 17 gm DAILYPRN PRN ORAL Constipation 06/15/17 13:45 07/14/17 13:44 Potassium Chloride 40 meq/ Sodium Chloride 570 ml @ 142.5 mls/ hr ONCE ONCE IVPB 06/16/17 10:00 06/16/17 13:59 Sitagliptin Phosphate (Januvia) 100 mg ACBREAKFAST ORAL 06/15/17 09:00 07/15/17 08:59 06/16/17 06:01 Sodium Chloride 1,000 ml @ 75 mls/hr [id number] IV 06/15/17 10:45 07/15/17 10:44 06/16/17 00:31 Temazepam (Restoril) 15 mg HSPRN PRN ORAL Insomnia 06/15/17 21:00 06/21/17 20:59 Donaldo Villegas MD Jun 16, 2017 10:31
--- NOTE | 2017-06-16 14:19 | General Progress Note ---
Assessment/Plan Problem List: (1) Persistent vomiting ICD Codes: R11.10 - Vomiting, unspecified SNOMED: 860975166 (2) Diabetes ICD Codes: E11.9 - Type 2 diabetes mellitus without complications SNOMED: 05929080 Qualifiers: Qualified Codes: E11.40 - Type 2 diabetes mellitus with diabetic neuropathy , unspecified (3) Neuropathy ICD Codes: G62.9 - Polyneuropathy, unspecified SNOMED: 867295236 (4) HTN (hypertension) ICD Codes: I10 - Essential (primary) hypertension SNOMED: 55978594 (5) Gastroparesis ICD Codes: K31.84 - Gastroparesis SNOMED: 111780738 Status: unchanged Assessment/Plan o2 pulm tx bs bp pain control cbc bmp am Subjective Constitutional: Reports: weakness Respiratory: Reports: shortness of breath Allergies: Coded Allergies: NO KNOWN ALLERGIES (Verified Allergy, Unknown, 05/01/17) All Systems: reviewed and negative except above Subjective o2nc Objective Last 24 Hour Vital Signs Date Time Temp Pulse Resp B/P (MAP) Pulse Ox O2 Delivery O2 Flow Rate FiO2 06/16/17 13:00 88 18 125/79 100 Nasal Cannula 2.0 06/16/17 12:00 76 06/16/17 12:00 77 18 116/66 100 Nasal Cannula 2.0 06/16/17 11:00 80 18 108/61 100 Nasal Cannula 2.0 06/16/17 10:00 88 17 126/70 100 Nasal Cannula 2.0 06/16/17 09:00 87 17 120/68 100 Nasal Cannula 2.0 06/16/17 08:33 128/79 06/16/17 08:00 98.9 88 18 125/66 100 Nasal Cannula 2.0 98.9 06/16/17 08:00 70 06/16/17 07:30 96 18 Nasal Cannula 2.0 28 06/16/17 07:30 Nasal Cannula 2.0 28 06/16/17 07:30 98 Nasal Cannula 2.0 28 06/16/17 07:00 89 17 123/81 100 Nasal Cannula 2.0 06/16/17 06:00 88 17 132/69 100 Nasal Cannula 2.0 06/16/17 05:00 82 18 130/85 100 Nasal Cannula 2.0 06/16/17 04:00 72 06/16/17 04:00 98.5 87 18 111/67 100 Nasal Cannula 2.0 98.5 06/16/17 03:00 83 21 120/71 100 Nasal Cannula 2.0 06/16/17 02:00 90 19 135/82 100 Nasal Cannula 2.0 06/16/17 01:00 84 18 113/76 100 Nasal Cannula 2.0 06/16/17 00:00 74 06/16/17 00:00 98.1 86 19 100/60 100 Nasal Cannula 2.0 98.1 06/15/17 23:00 89 18 100/59 100 Nasal Cannula 2.0 06/15/17 22:00 94 18 100/60 100 Nasal Cannula 2.0 06/15/17 21:00 96 19 121/71 100 Nasal Cannula 2.0 06/15/17 20:00 97.9 96 17 121/17 100 Nasal Cannula 2.0 97.9 06/15/17 20:00 101 06/15/17 19:10 Nasal Cannula 2.0 28 06/15/17 19:10 100 Nasal Cannula 2.0 28 06/15/17 19:00 89 19 Nasal Cannula 2.0 28 06/15/17 19:00 89 19 100/63 100 Nasal Cannula 2.0 06/15/17 18:00 96 19 93/56 100 Nasal Cannula 2.0 06/15/17 17:07 105/55 06/15/17 17:00 104 19 100/58 100 Nasal Cannula 2.0 06/15/17 16:00 101 06/15/17 16:00 101 18 115/68 100 Nasal Cannula 2.0 06/15/17 15:00 106 18 122/66 100 Nasal Cannula 2.0 Intake and Output 06/15/17 06/16/17 19:00 07:00 Intake Total 600 ml 225 ml Output Total 530 ml 300 ml Balance 70 ml -75 ml IV Total 600 ml 225 ml Output Urine Total 530 ml 300 ml Laboratory Tests 06/16/17 05:00: White Blood Count 9.4, Red Blood Count 3.84L, Hemoglobin 12.6, Hematocrit 33.7L , Mean Corpuscular Volume 88, Mean Corpuscular Hemoglobin 32.8H, Mean Corpuscular Hemoglobin Concent 37.4H, Red Cell Distribution Width 11.7, Platelet Count 241, Mean Platelet Volume 6.4L, Neutrophils (%) (Auto) 50.7, Lymphocytes (%) (Auto) 38.2, Monocytes (%) (Auto) 7.6, Eosinophils (%) (Auto) 2.4, Basophils (%) (Auto) 1.1, Erythrocyte Sedimentation Rate 17, Sodium Level 128L, Potassium Level 3.0L, Chloride Level 97L, Carbon Dioxide Level 23, Anion Gap 8, Blood Urea Nitrogen 13, Creatinine 0.7, Estimat Glomerular Filtration Rate > 60, Glucose Level 240H, Hemoglobin A1c 9.9H, Calcium Level 9.7, Phosphorus Level 2.7, Magnesium Level 1.4L, Total Bilirubin 0.5, Aspartate Amino Transf (AST/SGOT) 11L, Alanine Aminotransferase (ALT/SGPT) 26, Alkaline Phosphatase 54, Troponin I 0.000, C-Reactive Protein, Quantitative < 0.4, Total Protein 6.5, Albumin 3.4, Globulin 3.1, Albumin/Globulin Ratio 1.1 Height (Feet): 5 Height (Inches): 4.00 Weight (Pounds): 135 General Appearance: alert EENT: normal ENT inspection Neck: normal alignment Cardiovascular: normal peripheral pulses, normal rate, regular rhythm Respiratory/Chest: chest wall non-tender, lungs clear, normal breath sounds Abdomen: normal bowel sounds, non tender, soft Extremities: normal inspection Edema: no edema noted Arm (L), no edema noted Arm (R), no edema noted Leg (L), no edema noted Leg (R), no edema noted Pedal (L), no edema noted Pedal (R), no edema noted Generalized Neurologic: responsive, motor weakness Skin: normal pigmentation, warm/dry SHANTI HAWKINS Jun 16, 2017 14:19
--- NOTE | 2017-06-16 15:40 | GI Progress Note ---
Assessment/Plan Problems: (1) Cannabinoid hyperemesis syndrome ICD Codes: F12.988 - Cannabis use, unspecified with other cannabis-induced disorder SNOMED: 622510990, 897423122 (2) DM (diabetes mellitus) ICD Codes: E11.9 - Type 2 diabetes mellitus without complications SNOMED: 26920152 (3) Gastroparesis ICD Codes: K31.84 - Gastroparesis SNOMED: 192250216 (4) Diabetes ICD Codes: E11.9 - Type 2 diabetes mellitus without complications SNOMED: 37791970 Qualifiers: Qualified Codes: E11.40 - Type 2 diabetes mellitus with diabetic neuropathy , unspecified (5) Persistent vomiting ICD Codes: R11.10 - Vomiting, unspecified SNOMED: 616135655 Status: stable Status Narrative Discussed with Dr. Disla. Assessment/Plan CT AP during last admission, see full report >> fatty liver. hx of cyclic vomiting reglan ATC for persistent vomiting DM management adv diet as tolerated ppi + H2B qhs fu labs will defer endoscopy and gastric emptying study at this time Subjective Gastrointestinal/Abdominal: Reports: no symptoms Objective Last 24 Hour Vital Signs Date Time Temp Pulse Resp B/P (MAP) Pulse Ox O2 Delivery O2 Flow Rate FiO2 06/16/17 14:00 98.7 99 18 124/69 100 Nasal Cannula 2.0 98.7 06/16/17 13:00 88 18 125/79 100 Nasal Cannula 2.0 06/16/17 12:00 76 06/16/17 12:00 77 18 116/66 100 Nasal Cannula 2.0 06/16/17 11:00 80 18 108/61 100 Nasal Cannula 2.0 06/16/17 10:00 88 17 126/70 100 Nasal Cannula 2.0 06/16/17 09:00 87 17 120/68 100 Nasal Cannula 2.0 06/16/17 08:33 128/79 06/16/17 08:00 98.9 88 18 125/66 100 Nasal Cannula 2.0 98.9 06/16/17 08:00 70 06/16/17 07:30 96 18 Nasal Cannula 2.0 28 06/16/17 07:30 Nasal Cannula 2.0 28 06/16/17 07:30 98 Nasal Cannula 2.0 28 06/16/17 07:00 89 17 123/81 100 Nasal Cannula 2.0 06/16/17 06:00 88 17 132/69 100 Nasal Cannula 2.0 06/16/17 05:00 82 18 130/85 100 Nasal Cannula 2.0 06/16/17 04:00 72 06/16/17 04:00 98.5 87 18 111/67 100 Nasal Cannula 2.0 98.5 06/16/17 03:00 83 21 120/71 100 Nasal Cannula 2.0 06/16/17 02:00 90 19 135/82 100 Nasal Cannula 2.0 06/16/17 01:00 84 18 113/76 100 Nasal Cannula 2.0 06/16/17 00:00 74 06/16/17 00:00 98.1 86 19 100/60 100 Nasal Cannula 2.0 98.1 06/15/17 23:00 89 18 100/59 100 Nasal Cannula 2.0 06/15/17 22:00 94 18 100/60 100 Nasal Cannula 2.0 06/15/17 21:00 96 19 121/71 100 Nasal Cannula 2.0 06/15/17 20:00 97.9 96 17 121/17 100 Nasal Cannula 2.0 97.9 06/15/17 20:00 101 06/15/17 19:10 Nasal Cannula 2.0 28 06/15/17 19:10 100 Nasal Cannula 2.0 28 06/15/17 19:00 89 19 Nasal Cannula 2.0 28 06/15/17 19:00 89 19 100/63 100 Nasal Cannula 2.0 06/15/17 18:00 96 19 93/56 100 Nasal Cannula 2.0 06/15/17 17:07 105/55 06/15/17 17:00 104 19 100/58 100 Nasal Cannula 2.0 06/15/17 16:00 101 06/15/17 16:00 101 18 115/68 100 Nasal Cannula 2.0 Intake and Output 06/15/17 06/16/17 19:00 07:00 Intake Total 600 ml 225 ml Output Total 530 ml 300 ml Balance 70 ml -75 ml IV Total 600 ml 225 ml Output Urine Total 530 ml 300 ml Laboratory Tests Test 06/16/17 05:00 White Blood Count 9.4 K/UL (4.8-10.8) Red Blood Count 3.84 M/UL (4.20-5.40) L Hemoglobin 12.6 G/DL (12.0-16.0) Hematocrit 33.7 % (37.0-47.0) L Mean Corpuscular Volume 88 FL (80-99) Mean Corpuscular Hemoglobin 32.8 PG (27.0-31.0) H Mean Corpuscular Hemoglobin Concent 37.4 G/DL (32.0-36.0) H Red Cell Distribution Width 11.7 % (11.6-14.8) Platelet Count 241 K/UL (150-450) Mean Platelet Volume 6.4 FL (6.5-10.1) L Neutrophils (%) (Auto) 50.7 % (45.0-75.0) Lymphocytes (%) (Auto) 38.2 % (20.0-45.0) Monocytes (%) (Auto) 7.6 % (1.0-10.0) Eosinophils (%) (Auto) 2.4 % (0.0-3.0) Basophils (%) (Auto) 1.1 % (0.0-2.0) Erythrocyte Sedimentation Rate 17 MM/HR (0-30) Sodium Level 128 MMOL/L (136-145) L Potassium Level 3.0 MMOL/L (3.5-5.1) L Chloride Level 97 MMOL/L (98-107) L Carbon Dioxide Level 23 MMOL/L (21-32) Anion Gap 8 mmol/L (5-15) Blood Urea Nitrogen 13 mg/dL (7-18) Creatinine 0.7 MG/DL (0.55-1.30) Estimat Glomerular Filtration Rate > 60 mL/min (>60) Glucose Level 240 MG/DL (74-106) H Hemoglobin A1c 9.9 % (4.3-6.0) H Calcium Level 9.7 MG/DL (8.5-10.1) Phosphorus Level 2.7 MG/DL (2.5-4.9) Magnesium Level 1.4 MG/DL (1.8-2.4) L Total Bilirubin 0.5 MG/DL (0.2-1.0) Aspartate Amino Transf (AST/SGOT) 11 U/L (15-37) L Alanine Aminotransferase (ALT/SGPT) 26 U/L (12-78) Alkaline Phosphatase 54 U/L (46-116) Troponin I 0.000 ng/mL (0.000-0.056) C-Reactive Protein, Quantitative < 0.4 mg/dL (0.00-0.90) Total Protein 6.5 G/DL (6.4-8.2) Albumin 3.4 G/DL (3.4-5.0) Globulin 3.1 g/dL Albumin/Globulin Ratio 1.1 (1.0-2.7) Height (Feet): 5 Height (Inches): 4.00 Weight (Pounds): 135 General Appearance: WD/WN, no apparent distress, alert Cardiovascular: normal rate Respiratory/Chest: normal breath sounds, no respiratory distress Abdominal Exam: normal bowel sounds, non tender, soft Extremities: normal range of motion, non-tender Jeanine Alejandro N.P. Jun 16, 2017 15:39
[2017-06-17] VITALS (9 sets, daily range): BP systolic 115–161; BP diastolic 68–96
[2017-06-17] MEDS ORDERED: dilTIAZem HCl 25mg/5ml Inj IV PRN ×2 (05:00→16:00)
[2017-06-17] MEDS ORDERED: Enalaprilat 2.5mg/2ml Inj IV PRN ×4 (05:00→17:30)
[2017-06-17] MEDS ORDERED: Labetalol 5mg/ml 20ml vial IV PRN ×2 (05:00→16:00)
[2017-06-17] MEDS ORDERED: ALPRAZolam 0.5mg tab ORAL PRN ×2 (05:00→15:30)
[2017-06-17] MEDS ORDERED: Nitroglycerin Subl 0.4mg tab SL PRN ×2 (05:00→15:15)
[2017-06-17] MEDS ORDERED: Morphine Sulfate 4mg/ml Inj IVP PRN ×2 (05:39→15:30)
[2017-06-17] MEDS ORDERED: Miralax 17gm pkt ORAL PRN ×2 (05:40→15:30)
[2017-06-17] MEDS ORDERED: Albuterol/Ipratropium 3ml neb HHN PRN ×2 (05:45→15:30)
[2017-06-17] MEDS: NovoLOG Insulin Flexpen SUBQ SCH ×4 (06:30→12:31)
[2017-06-17 07:03] LABS: BASOPHILS % (AUTO) 0.9 % (0.0-2.0); EOSINOPHILS % (AUTO) 2.6 % (0.0-3.0); HEMATOCRIT 35.2 % (37.0-47.0); HEMOGLOBIN 12.5 G/DL (12.0-16.0); LYMPHOCYTES % (AUTO) 31.5 % (20.0-45.0); MEAN CORPUSCULAR VOLUME 87 FL (80-99); MONOCYTES % (AUTO) 6.9 % (1.0-10.0); NEUTROPHILS % (AUTO) 58.1 % (45.0-75.0); PLATELET COUNT 248 K/UL (150-450); RED BLOOD COUNT 4.05 M/UL (4.20-5.40); RED CELL DISTRIBUTION WIDTH 11.4 % (11.6-14.8); WHITE BLOOD COUNT 7.8 K/UL (4.8-10.8)
[2017-06-17 07:13] LABS: ALANINE AMINOTRANSFERASE 30 U/L (12-78); ALBUMIN 3.2 G/DL (3.4-5.0); ALKALINE PHOSPHATASE 61 U/L (46-116); ANION GAP 9 mmol/L (5-15); ASPARTATE AMINO TRANSFERASE 14 U/L (15-37); BILIRUBIN,TOTAL 0.4 MG/DL (0.2-1.0); BLOOD UREA NITROGEN 11 mg/dL (7-18); CALCIUM 9.2 MG/DL (8.5-10.1); CARBON DIOXIDE 23 MMOL/L (21-32); CHLORIDE 100 MMOL/L (98-107); CREATININE 0.6 MG/DL (0.55-1.30); PHOSPHORUS 2.1 MG/DL (2.5-4.9); POTASSIUM 3.6 MMOL/L (3.5-5.1); SODIUM 132 MMOL/L (136-145)
[2017-06-17] MEDS: Heparin 5000 units/ml inj SUBQ SCH ×2 (07:17→14:53)
[2017-06-17] MEDS ORDERED: Aspirin Baby 81mg ORAL SCH (09:00)
[2017-06-17] MEDS ORDERED: Levemir Flexpen SUBQ SCH (09:00)
[2017-06-17] MEDS ORDERED: Lisinopril 2.5mg tab ORAL SCH ×2 (09:00→18:00)
--- NOTE | 2017-06-17 10:19 | Pulmonology Progress Note ---
Assessment/Plan Problems: (1) Hypertensive urgency (2) Persistent vomiting (3) Diabetes (4) HTN (hypertension) (5) Neuropathy Assessment/Plan improving eating well BS better controlled BP is better controlled transfer to med/surg increase Levemir to 16 units daily increase Novolog to 6 units ac tid Subjective ROS Limited/Unobtainable: No Constitutional: Reports: no symptoms HEENT: Repors: no symptoms Respiratory: Reports: no symptoms Allergies: Coded Allergies: NO KNOWN ALLERGIES (Verified Allergy, Unknown, 05/01/17) Objective Last 24 Hour Vital Signs Date Time Temp Pulse Resp B/P (MAP) Pulse Ox O2 Delivery O2 Flow Rate FiO2 06/17/17 08:00 97.7 83 21 161/96 99 Room Air 97.7 06/17/17 08:00 82 06/17/17 04:00 98.4 80 20 140/81 99 Nasal Cannula 2.0 98.4 06/17/17 04:00 77 06/17/17 03:00 82 20 135/80 99 Nasal Cannula 2.0 06/17/17 02:00 82 20 132/79 99 Nasal Cannula 2.0 06/17/17 01:00 82 20 124/68 99 Nasal Cannula 2.0 06/17/17 00:00 78 06/17/17 00:00 78 18 115/75 99 Nasal Cannula 2.0 06/16/17 23:00 80 20 124/68 99 Nasal Cannula 2.0 06/16/17 23:00 83 20 124/68 99 Nasal Cannula 2.0 06/16/17 22:00 81 20 119/71 99 Nasal Cannula 2.0 06/16/17 21:00 92 20 118/73 99 Nasal Cannula 2.0 06/16/17 20:00 88 06/16/17 20:00 98.0 88 20 119/73 99 Nasal Cannula 2.0 98.0 06/16/17 19:30 Nasal Cannula 2.0 28 06/16/17 19:30 90 18 Nasal Cannula 2.0 28 06/16/17 19:30 98 Nasal Cannula 2.0 28 06/16/17 19:00 98.9 85 17 108/66 100 Nasal Cannula 2.0 98.9 06/16/17 18:00 89 17 129/77 100 Nasal Cannula 2.0 06/16/17 17:30 119/68 06/16/17 17:00 90 17 118/68 100 Nasal Cannula 2.0 06/16/17 16:00 95 18 116/70 100 Nasal Cannula 2.0 06/16/17 16:00 89 06/16/17 15:00 94 18 104/68 100 Nasal Cannula 2.0 06/16/17 14:00 98.7 99 18 124/69 100 Nasal Cannula 2.0 98.7 06/16/17 13:00 88 18 125/79 100 Nasal Cannula 2.0 06/16/17 12:00 76 06/16/17 12:00 77 18 116/66 100 Nasal Cannula 2.0 06/16/17 11:00 80 18 108/61 100 Nasal Cannula 2.0 Intake and Output 06/16/17 06/17/17 19:00 07:00 Intake Total 1070.0 ml 735 ml Output Total 700 ml 780 ml Balance 370.0 ml -45 ml Intake Oral 60 ml IV Total 1070.0 ml 675 ml Output Urine Total 700 ml 780 ml # Voids 1 General Appearance: WD/WN HEENT: normocephalic, atraumatic Respiratory/Chest: chest wall non-tender, lungs clear Breasts: no masses Cardiovascular: normal peripheral pulses Abdomen: normal bowel sounds, soft, non tender Genitourinary: normal external genitalia Extremities: no clubbing Skin: no rash 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 Lymphatic: no neck adenopathy Laboratory Tests 06/17/17 05:30: White Blood Count 7.8, Red Blood Count 4.05L, Hemoglobin 12.5, Hematocrit 35.2L , Mean Corpuscular Volume 87, Mean Corpuscular Hemoglobin 30.9, Mean Corpuscular Hemoglobin Concent 35.5, Red Cell Distribution Width 11.4L, Platelet Count 248, Mean Platelet Volume 5.8L, Neutrophils (%) (Auto) 58.1, Lymphocytes (%) (Auto) 31.5, Monocytes (%) (Auto) 6.9, Eosinophils (%) (Auto) 2.6, Basophils (%) (Auto) 0.9, Sodium Level 132L, Potassium Level 3.6, Chloride Level 100, Carbon Dioxide Level 23, Anion Gap 9, Blood Urea Nitrogen 11, Creatinine 0.6, Estimat Glomerular Filtration Rate > 60, Glucose Level 212H, Calcium Level 9.2, Phosphorus Level 2.1L, Magnesium Level 1.6L, Total Bilirubin 0.4, Aspartate Amino Transf (AST/SGOT) 14L, Alanine Aminotransferase (ALT/SGPT) 30, Alkaline Phosphatase 61, Total Protein 6.5, Albumin 3.2L, Globulin 3.3, Albumin/Globulin Ratio 1.0 Current Medications Medications (Trade) Dose Ordered Sig/Ramana Route PRN Reason Start Time Stop Time Status Last Admin Dose Admin Acetaminophen (Tylenol) 650 mg Q4H PRN ORAL T>100.5 06/17/17 05:13 07/14/17 05:12 Albuterol/ Ipratropium (Albuterol/ Ipratropium) 3 ml Q4H PRN HHN Shortness of Breath 06/17/17 05:45 06/19/17 13:44 Alprazolam (Xanax) 0.5 mg Q6H PRN ORAL For Anxiety 06/17/17 05:00 06/22/17 10:59 Aspirin (ASA) 162 mg DAILY ORAL 06/17/17 09:00 07/15/17 08:59 Atorvastatin Calcium (Lipitor) 10 mg BEDTIME ORAL 06/17/17 21:00 07/14/17 20:59 Cetylpyridinium Chloride (Cepacol) 1 lozg Q2H PRN NYLA Throat irritation 06/17/17 05:22 07/17/17 05:21 Dextrose (Dextrose 50%) 25 ml STAT PRN IV Hypoglycemia 06/17/17 05:22 07/15/17 05:21 Dextrose (Dextrose 50%) 50 ml STAT PRN IV Hypoglycemia 06/17/17 05:24 07/15/17 05:23 Diltiazem HCl (Cardizem) 10 mg Q1H PRN IV heart rate more than 120BPM 06/17/17 05:00 07/17/17 04:59 Enalaprilat (Vasotec) 2.5 mg Q4H PRN IV sbp more than 200 06/17/17 05:00 07/17/17 04:59 Enalaprilat (Vasotec) 2.5 mg Q6H PRN IV sbp more than 160mmHg 06/17/17 05:27 07/14/17 05:26 Famotidine (Pepcid) 20 mg BEDTIME ORAL 06/17/17 21:00 07/15/17 20:59 Gabapentin (Neurontin) 300 mg THREE TIMES A DAY ORAL 06/17/17 09:00 07/14/17 17:59 Heparin Sodium (Porcine) (Heparin 5000 units/ml) 5,000 units EVERY 8 HOURS SUBQ 06/17/17 06:00 07/14/17 13:59 06/17/17 07:17 Hydralazine HCl (Apresoline) 20 mg Q4H PRN IV sbp more than 160 06/17/17 05:28 07/14/17 05:27 Insulin Aspart (NovoLOG) BEFORE MEALS AND HS SUBQ 06/17/17 06:30 07/14/17 16:29 06/17/17 06:30 Insulin Aspart (NovoLOG) 6 units NOVOTIAC SUBQ 06/17/17 06:30 07/15/17 11:49 06/17/17 06:30 Insulin Detemir (Levemir) 16 units DAILY SUBQ 06/17/17 09:00 07/15/17 08:59 Labetalol HCl (Normodyne) 20 mg Q1H PRN IV sbo more than 180 06/17/17 05:00 07/17/17 04:59 Lisinopril (Zestril) 5 mg BID ORAL 06/17/17 09:00 07/14/17 17:59 Magnesium Sulfate 100 ml @ 100 mls/hr Q1H IVPB 06/17/17 09:30 06/17/17 11:29 Metoclopramide HCl (Reglan) 10 mg Q6H PRN ORAL Nausea & Vomiting 06/17/17 05:38 07/15/17 05:37 Morphine Sulfate (Morphine Sulfate) 2 mg Q4H PRN IVP Severe Pain (Pain Scale 7-10) 06/17/17 05:39 06/21/17 05:38 Nitroglycerin (Ntg) 0.4 mg Q5MIN X 3 DOSES PRN SL Prn Chest Pain 06/17/17 05:00 07/14/17 13:59 Ondansetron HCl (Zofran ODT) 4 mg Q6H PRN ORAL Nausea & Vomiting 06/17/17 05:40 07/15/17 05:39 Polyethylene Glycol (Miralax) 17 gm DAILYPRN PRN ORAL Constipation 06/17/17 05:40 07/14/17 05:39 Sitagliptin Phosphate (Januvia) 100 mg ACBREAKFAST ORAL 06/17/17 06:30 07/15/17 08:59 06/17/17 07:11 Sodium Chloride 1,000 ml @ 75 mls/hr [id number] IV 06/17/17 06:00 07/15/17 05:59 Sodium Phosphate 30 mm/Sodium Chloride 285 ml @ 47.5 mls/hr ONCE ONCE IV 06/17/17 12:45 06/17/17 18:44 UNV Sodium Phosphate 30 mm/Sodium Chloride 285 ml @ 47.5 mls/hr ONCE ONCE IVPB 06/17/17 11:30 06/17/17 17:29 Temazepam (Restoril) 15 mg HSPRN PRN ORAL Insomnia 06/17/17 21:00 06/21/17 20:59 Donaldo Villegas MD Jun 17, 2017 10:19
--- NOTE | 2017-06-17 10:34 | GI Progress Note ---
Assessment/Plan Problems: (1) Cannabinoid hyperemesis syndrome ICD Codes: F12.988 - Cannabis use, unspecified with other cannabis-induced disorder SNOMED: 735388717, 374254470 (2) DM (diabetes mellitus) ICD Codes: E11.9 - Type 2 diabetes mellitus without complications SNOMED: 80696554 (3) Gastroparesis ICD Codes: K31.84 - Gastroparesis SNOMED: 515166382 (4) Diabetes ICD Codes: E11.9 - Type 2 diabetes mellitus without complications SNOMED: 79144184 Qualifiers: Qualified Codes: E11.40 - Type 2 diabetes mellitus with diabetic neuropathy , unspecified (5) Persistent vomiting ICD Codes: R11.10 - Vomiting, unspecified SNOMED: 036828985 Status: stable Status Narrative Discussed with Dr. Disla. Assessment/Plan CT AP during last admission, see full report >> fatty liver. hx of cyclic vomiting reglan ATC for persistent vomiting DM management adv diet as tolerated ppi + H2B qhs fu labs will defer endoscopy and gastric emptying study at this time dc planning Subjective Subjective feels better Objective Last 24 Hour Vital Signs Date Time Temp Pulse Resp B/P (MAP) Pulse Ox O2 Delivery O2 Flow Rate FiO2 06/17/17 08:00 97.7 83 21 161/96 99 Room Air 97.7 06/17/17 08:00 82 06/17/17 04:00 98.4 80 20 140/81 99 Nasal Cannula 2.0 98.4 06/17/17 04:00 77 06/17/17 03:00 82 20 135/80 99 Nasal Cannula 2.0 06/17/17 02:00 82 20 132/79 99 Nasal Cannula 2.0 06/17/17 01:00 82 20 124/68 99 Nasal Cannula 2.0 06/17/17 00:00 78 06/17/17 00:00 78 18 115/75 99 Nasal Cannula 2.0 06/16/17 23:00 80 20 124/68 99 Nasal Cannula 2.0 06/16/17 23:00 83 20 124/68 99 Nasal Cannula 2.0 06/16/17 22:00 81 20 119/71 99 Nasal Cannula 2.0 06/16/17 21:00 92 20 118/73 99 Nasal Cannula 2.0 06/16/17 20:00 88 06/16/17 20:00 98.0 88 20 119/73 99 Nasal Cannula 2.0 98.0 06/16/17 19:30 Nasal Cannula 2.0 28 06/16/17 19:30 90 18 Nasal Cannula 2.0 28 06/16/17 19:30 98 Nasal Cannula 2.0 28 06/16/17 19:00 98.9 85 17 108/66 100 Nasal Cannula 2.0 98.9 06/16/17 18:00 89 17 129/77 100 Nasal Cannula 2.0 06/16/17 17:30 119/68 06/16/17 17:00 90 17 118/68 100 Nasal Cannula 2.0 06/16/17 16:00 95 18 116/70 100 Nasal Cannula 2.0 06/16/17 16:00 89 06/16/17 15:00 94 18 104/68 100 Nasal Cannula 2.0 06/16/17 14:00 98.7 99 18 124/69 100 Nasal Cannula 2.0 98.7 06/16/17 13:00 88 18 125/79 100 Nasal Cannula 2.0 06/16/17 12:00 76 06/16/17 12:00 77 18 116/66 100 Nasal Cannula 2.0 06/16/17 11:00 80 18 108/61 100 Nasal Cannula 2.0 Intake and Output 06/16/17 06/17/17 19:00 07:00 Intake Total 1070.0 ml 735 ml Output Total 700 ml 780 ml Balance 370.0 ml -45 ml Intake Oral 60 ml IV Total 1070.0 ml 675 ml Output Urine Total 700 ml 780 ml # Voids 1 Laboratory Tests Test 06/17/17 05:30 White Blood Count 7.8 K/UL (4.8-10.8) Red Blood Count 4.05 M/UL (4.20-5.40) L Hemoglobin 12.5 G/DL (12.0-16.0) Hematocrit 35.2 % (37.0-47.0) L Mean Corpuscular Volume 87 FL (80-99) Mean Corpuscular Hemoglobin 30.9 PG (27.0-31.0) Mean Corpuscular Hemoglobin Concent 35.5 G/DL (32.0-36.0) Red Cell Distribution Width 11.4 % (11.6-14.8) L Platelet Count 248 K/UL (150-450) Mean Platelet Volume 5.8 FL (6.5-10.1) L Neutrophils (%) (Auto) 58.1 % (45.0-75.0) Lymphocytes (%) (Auto) 31.5 % (20.0-45.0) Monocytes (%) (Auto) 6.9 % (1.0-10.0) Eosinophils (%) (Auto) 2.6 % (0.0-3.0) Basophils (%) (Auto) 0.9 % (0.0-2.0) Sodium Level 132 MMOL/L (136-145) L Potassium Level 3.6 MMOL/L (3.5-5.1) Chloride Level 100 MMOL/L (98-107) Carbon Dioxide Level 23 MMOL/L (21-32) Anion Gap 9 mmol/L (5-15) Blood Urea Nitrogen 11 mg/dL (7-18) Creatinine 0.6 MG/DL (0.55-1.30) Estimat Glomerular Filtration Rate > 60 mL/min (>60) Glucose Level 212 MG/DL (74-106) H Calcium Level 9.2 MG/DL (8.5-10.1) Phosphorus Level 2.1 MG/DL (2.5-4.9) L Magnesium Level 1.6 MG/DL (1.8-2.4) L Total Bilirubin 0.4 MG/DL (0.2-1.0) Aspartate Amino Transf (AST/SGOT) 14 U/L (15-37) L Alanine Aminotransferase (ALT/SGPT) 30 U/L (12-78) Alkaline Phosphatase 61 U/L (46-116) Total Protein 6.5 G/DL (6.4-8.2) Albumin 3.2 G/DL (3.4-5.0) L Globulin 3.3 g/dL Albumin/Globulin Ratio 1.0 (1.0-2.7) Height (Feet): 5 Height (Inches): 4.00 Weight (Pounds): 149 General Appearance: WD/WN, no apparent distress, alert Cardiovascular: normal rate Respiratory/Chest: normal breath sounds, no respiratory distress Abdominal Exam: normal bowel sounds, non tender, soft Extremities: normal range of motion, non-tender Jeanine Alejandro N.P. Jun 17, 2017 10:34
[2017-06-17] MEDS ORDERED: Sodium Phosphate 30 MM in NS 275 ML IVPB ONE (11:30)
[2017-06-17] MEDS ORDERED: Sodium Phosphate 30 MM in NS 275 ML IV ONE (12:45)
--- NOTE | 2017-06-17 15:05 | General Progress Note ---
Assessment/Plan Problem List: (1) Persistent vomiting ICD Codes: R11.10 - Vomiting, unspecified SNOMED: 305644677 (2) Diabetes ICD Codes: E11.9 - Type 2 diabetes mellitus without complications SNOMED: 61080721 Qualifiers: Qualified Codes: E11.40 - Type 2 diabetes mellitus with diabetic neuropathy , unspecified (3) Neuropathy ICD Codes: G62.9 - Polyneuropathy, unspecified SNOMED: 408767236 (4) HTN (hypertension) ICD Codes: I10 - Essential (primary) hypertension SNOMED: 58247629 (5) Gastroparesis ICD Codes: K31.84 - Gastroparesis SNOMED: 408926460 Status: stable, progressing, tolerating diet Assessment/Plan o2 pulm tx bs bp pain control dc if clear Subjective Constitutional: Reports: weakness Allergies: Coded Allergies: NO KNOWN ALLERGIES (Verified Allergy, Unknown, 05/01/17) All Systems: reviewed and negative except above Subjective feeling better Objective Last 24 Hour Vital Signs Date Time Temp Pulse Resp B/P (MAP) Pulse Ox O2 Delivery O2 Flow Rate FiO2 06/17/17 11:34 97.5 97 20 142/91 99 Room Air 97.5 06/17/17 11:34 104 06/17/17 10:30 161/96 06/17/17 08:00 97.7 83 21 161/96 99 Room Air 97.7 06/17/17 08:00 82 06/17/17 04:00 98.4 80 20 140/81 99 Nasal Cannula 2.0 98.4 06/17/17 04:00 77 06/17/17 03:00 82 20 135/80 99 Nasal Cannula 2.0 06/17/17 02:00 82 20 132/79 99 Nasal Cannula 2.0 06/17/17 01:00 82 20 124/68 99 Nasal Cannula 2.0 06/17/17 00:00 78 06/17/17 00:00 78 18 115/75 99 Nasal Cannula 2.0 06/16/17 23:00 80 20 124/68 99 Nasal Cannula 2.0 06/16/17 23:00 83 20 124/68 99 Nasal Cannula 2.0 06/16/17 22:00 81 20 119/71 99 Nasal Cannula 2.0 06/16/17 21:00 92 20 118/73 99 Nasal Cannula 2.0 06/16/17 20:00 88 06/16/17 20:00 98.0 88 20 119/73 99 Nasal Cannula 2.0 98.0 06/16/17 19:30 Nasal Cannula 2.0 28 06/16/17 19:30 90 18 Nasal Cannula 2.0 28 06/16/17 19:30 98 Nasal Cannula 2.0 28 06/16/17 19:00 98.9 85 17 108/66 100 Nasal Cannula 2.0 98.9 06/16/17 18:00 89 17 129/77 100 Nasal Cannula 2.0 06/16/17 17:30 119/68 06/16/17 17:00 90 17 118/68 100 Nasal Cannula 2.0 06/16/17 16:00 95 18 116/70 100 Nasal Cannula 2.0 06/16/17 16:00 89 Intake and Output 06/16/17 06/17/17 18:59 06:59 Intake Total 1070.0 ml 735 ml Output Total 700 ml 780 ml Balance 370.0 ml -45 ml Intake Oral 60 ml IV Total 1070.0 ml 675 ml Output Urine Total 700 ml 780 ml # Voids 1 Laboratory Tests 06/17/17 05:30: White Blood Count 7.8, Red Blood Count 4.05L, Hemoglobin 12.5, Hematocrit 35.2L , Mean Corpuscular Volume 87, Mean Corpuscular Hemoglobin 30.9, Mean Corpuscular Hemoglobin Concent 35.5, Red Cell Distribution Width 11.4L, Platelet Count 248, Mean Platelet Volume 5.8L, Neutrophils (%) (Auto) 58.1, Lymphocytes (%) (Auto) 31.5, Monocytes (%) (Auto) 6.9, Eosinophils (%) (Auto) 2.6, Basophils (%) (Auto) 0.9, Sodium Level 132L, Potassium Level 3.6, Chloride Level 100, Carbon Dioxide Level 23, Anion Gap 9, Blood Urea Nitrogen 11, Creatinine 0.6, Estimat Glomerular Filtration Rate > 60, Glucose Level 212H, Calcium Level 9.2, Phosphorus Level 2.1L, Magnesium Level 1.6L, Total Bilirubin 0.4, Aspartate Amino Transf (AST/SGOT) 14L, Alanine Aminotransferase (ALT/SGPT) 30, Alkaline Phosphatase 61, Total Protein 6.5, Albumin 3.2L, Globulin 3.3, Albumin/Globulin Ratio 1.0 Height (Feet): 5 Height (Inches): 4.00 Weight (Pounds): 149 General Appearance: alert EENT: normal ENT inspection Neck: normal alignment Cardiovascular: normal peripheral pulses, normal rate, regular rhythm Respiratory/Chest: chest wall non-tender, lungs clear, normal breath sounds Abdomen: normal bowel sounds, non tender, soft Extremities: normal inspection Edema: no edema noted Arm (L), no edema noted Arm (R), no edema noted Leg (L), no edema noted Leg (R), no edema noted Pedal (L), no edema noted Pedal (R), no edema noted Generalized Neurologic: responsive, motor weakness Skin: normal pigmentation, warm/dry SHANTI HAWKINS Jun 17, 2017 15:05
[2017-06-17] MEDS ORDERED: NovoLOG Insulin Flexpen SUBQ SCH ×2 (16:30→16:50)
[2017-06-17] MEDS ORDERED: ASPIRIN81 MG ORAL (18:33)
[2017-06-17] MEDS ORDERED: FAMOTIDINE20 MG ORAL (18:33)
[2017-06-17] MEDS ORDERED: Heparin 5000 units/ml inj SUBQ SCH (22:00)
[2017-06-18] MEDS ORDERED: Aspirin Baby 81mg ORAL SCH (09:00)
[2017-06-18] MEDS ORDERED: Levemir Flexpen SUBQ SCH (09:00)
[2017-06-18] MEDS ORDERED: Sodium Phosphate 30 MM in NS 275 ML IVPB ONE (11:30)
--- NOTE | 2017-06-18 13:21 | Discharge Summary ---
Discharge Summary Discharge Summary Discharge Summary DATE OF ADMISSION: 06/14/2017 DATE OF DISCHARGE: 06/17/2017 CONSULTANTS: Dr. Donaldo Murphy BRIEF HOSPITAL COURSE: Patient is a 56-year-old hypertensive and diabetic female, who was hospitalized a week ago, apparently was discharged and did not have enough money to fill her medications. She began to have nausea and vomiting, denied hematemesis or hematochezia. Nausea was severe and she was feeling anxious and weak. On evaluation at ED, blood pressure was in the 200s systolic. She was given hydralazine. She had nausea and vomiting and was given Pepsi and Zofran. She was noted to have elevated heart rate then was given labetalol. She continued to have vomiting and was given Compazine. Blood work showed glucose of 311, anion gap was 15. She was admitted to telemetry for evaluation of nausea and vomiting and chest pain. She was given symptomatic treatment. CT of the abdomen and pelvis during that admission showed fatty liver. She was placed on proton pump inhibitors and H2 blockers. She was given Reglan around the clock for persistent vomiting. Diet was advanced. Blood sugars were monitored and was continued on Januvia 100 mg daily and NovoLog sliding scale. He was placed Levemir, dosage was increased to 16 units daily. NovoLog was increased to 6 units before meals 3 times a day. Hemoglobin A1c was 9.9. He had episodes of hypokalemia and was given potassium replacement. Troponins had been negative. Glucose was better, she was educated regarding need for compliance with medications. She was eventually discharged home. FINAL DIAGNOSES: Diabetes mellitus out of control Nausea and vomiting Gastroparesis Hypertension Neuropathy Cannabinoids high per messes syndrome DISPOSITION: Patient was discharged home DISCHARGE MEDICATIONS: Refer to Discharge Medication List. DISCHARGE INSTRUCTIONS: Follow up with PCP in a week. I have been assigned to dictate discharge summary on this account, and I was not involved in the patient's management. Telma Thorpe NP Jun 18, 2017 13:21
--- NOTE | 2017-06-19 00:07 | Diagnostic Imaging Report ---
APPROVED REPORT CPT Code: 94497 Present Symptoms Shortness of breath BILATERAL: Imaging reveals a patent deep venous system bilaterally. There is no evidence of thrombus within the femoral, popliteal or tibial segments. The greater saphenous veins are also within normal limits. Doppler indicates normal spontaneous flow within these segments.
== END 2017-06-17 20:20 | disposition home or self-care (01) | DRG 638 ==
LOC: EMR 08:52 → EDBEDREQ 09:20 → 2E 09:35 → EDBEDREQ 10:04 → ICU 06-15 05:24 → 2W 06-17 04:42 → 4E 06-17 15:08
DX: E11.65 Type 2 diabetes mellitus with hyperglycemia (principal); E87.1 Hypo-osmolality and hyponatremia; K31.84 Gastroparesis; I16.0 Hypertensive urgency; R11.2 Nausea with vomiting, unspecified; F12.988 Cannabis use, unspecified with other cannabis-induced disorder; G62.9 Polyneuropathy, unspecified; Z91.14 Patient's other noncompliance with medication regimen
CPT/HCPCS: 36415; 71045; 80053; 80061; 81003; 82550; 82962; 83036; 83690; 83735; 83880; 84100; 84443; 84484; 85025; 85610; 85651; 85730; 86140; 93005; 93306; 93970; 94664; 94760; 96372; 96375; 99285; J1815; J2405; J2765; S5561